=== PATIENT | female | born 1935 | race Caucasian/White ===

== ENCOUNTER 2018-11-08 06:47 | Emergency (ER) | payer OTHER, MEDICARE ==
[2018-11-08 07:01] VITALS: TEMP 98.3; BMI 26.3
[2018-11-08 09:12] LABS: INR 1.01 (0.83-1.09); PROTHROMBIN TIME (PATIENT) 11.9 SEC (9.7-13.0)
[2018-11-08 09:16] LABS: BASO % 1.6 % (0-2.0); EOS % 1.8 % (0-4.5); HEMATOCRIT 34.4 % (32.4-45.2); HEMOGLOBIN 11.7 GM/dL (10.7-15.3); LYMPH % 14.9 % (8-40); MCH 31.8 pg (25.7-33.7); MCHC 34.1 g/dl (32.0-36.0); MEAN CELL VOLUME 93.1 fl (80-96); MEAN PLT VOLUME 8.9 fl (7.5-11.1); MONO % 6.3 % (3.8-10.2); NEUT % 75.4 % (42.8-82.8); PLATELET COUNT 468 K/MM3 (134-434); RDW 15.5 % (11.6-15.6); WHITE BLOOD COUNT 10.4 K/mm3 (4.0-10.0)
[2018-11-08 09:30] LABS: ALBUMIN 3.6 g/dl (3.4-5.0); ALK PHOS 72 U/L (45-117); ANION GAP 4 MMOL/L (8-16); BILIRUBIN,TOTAL 0.4 mg/dL (0.2-1); BLOOD UREA NITROGEN 19.2 mg/dL (7-18); CALCIUM 10.2 mg/dL (8.5-10.1); CHLORIDE 109 mmol/L (98-107); CO2 27 mmol/L (21-32); CREATININE 0.6 mg/dL (0.55-1.3); GLUCOSE,RANDOM 100 mg/dL (74-106); POTASSIUM 4.1 mmol/L (3.5-5.1); SGOT/AST 12 U/L (15-37); SGPT/ALT 14 U/L (13-61); SODIUM 140 mmol/L (136-145); TOT PROT 6.8 g/dl (6.4-8.2)
--- NOTE | 2018-11-08 10:20 | EKG ---
Test Reason : Blood Pressure : / mmHG Vent. Rate : 100 BPM Atrial Rate : 100 BPM P-R Int : 148 ms QRS Dur : 086 ms QT Int : 346 ms P-R-T Axes : 038 -22 009 degrees QTc Int : 446 ms NORMAL SINUS RHYTHM MINIMAL VOLTAGE CRITERIA FOR LVH, MAY BE NORMAL VARIANT BORDERLINE ECG WHEN COMPARED WITH ECG OF 19-JUN-2016 10:40, NO SIGNIFICANT CHANGE WAS FOUND Confirmed by CLARK ROTH, MARCELLA ([id number]) on 11/08/2018 10:19:42 AM Referred By: Confirmed By:MARCELLA RODAS MD
--- NOTE | 2018-11-08 10:40 | PDOC ---
Documentation entered by Kristine Hernandez SCRIBE, acting as scribe for Beto Perez MD. Beto ePrez MD: This documentation has been prepared by the Mary mccarty Adrianna, SCRIBE, under my direction and personally reviewed by me in its entirety. I confirm that the documentation accurately reflects all work, treatment, procedures, and medical decision making performed by me. History of Present Illness - General Chief Complaint: Shortness of Breath Stated Complaint: SHORTNESS OF BREATH Time Seen by Provider: 11/08/18 07:52 - History of Present Illness Initial Comments: The patient is an 83 Y F, with a PMH of HTN, HLD, and thrombocytopenia, presents with back pain and SOB since last night. Patient reports an unwitnessed last night secondary to her knees feeling weak (patient ambulates with cane at baseline). She complains of right-sided low back pain and admits to hitting her back during the fall. Patient reports feeling SOB prior to falling asleep, which has not resolved. SOB is intermittent, and the patient was able to sleep last night. She reports bilateral ankle swelling, which is secondary to Anagrelide. Patient notes she is currently on day 3 of Augmentin for cellulitis of the LLE. Denies fever, chills, cough, chest pain, fatigue, nausea, vomit, diarrhea. Allergies: Nitrofurantoin, nitrofurantoin macrocrystalline Surgical History: Thyroidectomy, abdominal hernia Social: Drinks half a glass of wine a day. Denies tobacco use. PCP: Dr. Gregor Smith Oncologist: Dr. Meet Mcgill 11/08/18 08:55 Past History - Past Medical History Allergies/Adverse Reactions: Allergies Allergy/AdvReac Type Severity Reaction Status Date / Time nitrofurantoin Allergy Verified 10/04/14 07:35 [From Macrobid] nitrofurantoin Allergy Verified 10/04/14 07:35 macrocrystalline [From Macrobid] Home Medications: Ambulatory Orders Amlodipine Besylate [Norvasc] 5 mg PO DAILY 09/21/12 Cholecalciferol (Vitamin D3) [Vitamin D] 1,000 unit PO DAILY 09/21/12 Levothyroxine [Synthroid] 0.125 mcg PO DAILY 09/21/12 Ubidecarenone [Coq-10] 100 mg PO DAILY 09/21/12 Aspirin [ASA -] 81 mg PO DAILY 10/04/14 Hydroxyurea [Hydrea] 500 mg PO DAILY 10/04/14 Lisinopril [Prinivil -] 20 mg PO DAILY 10/04/14 Alendronate Sodium/Vitamin D3 [Fosamax Plus D 70 mg-5,600 Iu vIT d] 1 each PO Q7D MDD takes on Saturdays11/08/18 Anagrelide HCl [Agrylin -] 0.5 mg PO TID 11/08/18 Furosemide [Lasix] 20 mg PO PRN 11/08/18 Asthma: No Cancer: No Cardiac Disorders: No CVA: No COPD: No CHF: No Diabetes: No HTN: Yes Hypercholesterolemia: Yes Thyroid Disease: Yes Other medical history: thrombocytopenia - Surgical History Abdominal Surgery: Yes (abd hernia) - Immunization History Immunization Up to Date: No - Suicide/Smoking/Psychosocial Hx Smoking Status: No Smoking History: Never smoked Have you smoked in the past 12 months: No Number of Cigarettes Smoked Daily: 0 Information on smoking cessation initiated: No Hx Alcohol Use: No Drug/Substance Use Hx: No Substance Use Type: None Respiratory Specific PMHX - Complaint Specific PMHX Angina: No Bronchitis: Yes Pneumonia: Yes Pulmonary Embolus: No Review of Systems - Review of Systems Comments:: CONSTITUTIONAL: No fever, no chills, no fatigue EYES: No visual changes ENT: No ear pain, no sore throat CARDIOVASCULAR: No chest pain, no palpitations RESPIRATORY: +SOB. No cough. GI: No abdominal pain, no nausea, no vomiting, no constipation, no diarrhea GENITOURINARY: No dysuria, no frequency, no hematuria MUSKULOSKELETAL: +Right-sided low back pain. +Bilateral ankle edema (secondary to Anagrelide). +LLE cellulitis (currently on antibiotics). No joint pain, no myalgias SKIN: No rash NEURO: No headache 11/08/18 08:56 *Physical Exam - Vital Signs Last Vital Signs Temp Pulse Resp BP Pulse Ox 98.3 F 101 H 16 151/90 95 11/08/18 06:58 11/08/18 06:58 11/08/18 06:58 11/08/18 06:58 11/08/18 06:58 - Physical Exam Comments: 11/08/18 11:59 EXAMINATION CONSTITUTIONAL: Well-appearing; well-nourished; in no apparent distress HEAD: Normocephalic; atraumatic EYES: PERRL; EOM intact ENMT: External appears normal; normal oropharynx; heard of hearing NECK: Supple; non-tender; no cervical lymphadenopathy CARD: Normal S1, S2; no murmurs, rubs, or gallops RESP: Normal chest excursion with respiration; breath sounds clear and equal bilaterally; no wheezes, rhonchi, or rales; + right flank and mid thoracic musculoskeletal pain reproducible to palpation; ABD: Soft, non-distended; non-tender; no palpable organomegaly, no palpable hernias; + hematoma to the right flank overlying the iliac spine; PELVIS: stable EXT: Normal ROM in all four extremities; non-tender to palpation; + 2 pitting edema bilaterally; + 1 cmskin ulceration to the left pretibial area is noted with packing in place;distal pulses intact SKIN: Warm, dry, no rash NEURO: cranial nerves II through XII are grossly intact; motor is 5 of 54; gait -deferred. ED Treatment Course - LABORATORY CBC & Chemistry Diagram: 11/08/18 08:43 11/08/18 08:43 - ADDITIONAL ORDERS Additional order review: Laboratory Results 11/08/18 11/08/18 11/08/18 08:43 08:43 08:43 PT with INR 11.90 INR 1.01 Sodium 140 Potassium 4.1 Chloride 109 H Carbon Dioxide 27 Anion Gap 4 L BUN 19.2 H Creatinine 0.6 Est GFR (CKD-EPI)AfAm 96.33 Est GFR (CKD-EPI)NonAf 83.11 Random Glucose 100 Calcium 10.2 H Total Bilirubin 0.4 AST 12 L ALT 14 Alkaline Phosphatase 72 Creatine Kinase 75 Troponin I < 0.02 B-Natriuretic Peptide 310.3 Total Protein 6.8 Albumin 3.6 11/08/18 08:43 PT with INR INR Sodium Potassium Chloride Carbon Dioxide Anion Gap BUN Creatinine Est GFR (CKD-EPI)AfAm Est GFR (CKD-EPI)NonAf Random Glucose Calcium Total Bilirubin AST ALT Alkaline Phosphatase Creatine Kinase Cancelled Troponin I Cancelled B-Natriuretic Peptide Total Protein Albumin 11/08/18 08:43 RBC 3.70 MCV 93.1 D MCHC 34.1 RDW 15.5 D MPV 8.9 Neutrophils % 75.4 Lymphocytes % 14.9 Monocytes % 6.3 Eosinophils % 1.8 Basophils % 1.6 - RADIOLOGY Radiology Studies Ordered: EXAM#: TYPE/EXAM: RESULT: [id number] RAD/CHEST X-RAY PORTABLE* Chest: Shortness of breath Impression: No acute chest pathology. Reported By: Matt Zuniga MD 11/08/18 09:20 EXAM#: TYPE/EXAM: RESULT: [id number] US/DUPLEX VASCUL US-2LEGS HISTORY PROVIDED: Pain and swelling bilateral lower extremities. IMPRESSION: No evidence of deep venous thrombosis. Reported By: Herminio Chan MD 11/08/18 10:11 Radiograph Interpretation: EXAM#: TYPE/EXAM: RESULT: [id number] CT/CHEST CTA HISTORY PROVIDED: Rule out PE. IMPRESSION: 1. No evidence of pulmonary embolism. 2. Mild COPD, no acute pathology within the chest. Please see above discussion. Reported By: Herminio Chan MD 11/08/18 13:36 - Consult/PCP Time Called: 14:18 (paged) Case discussed with personal care physician: Gregor Campbell Medical Decision Making - Medical Decision Making 11/08/18 11:59 Patient is an 83-year-old female with history of hypertension, hyperlipidemia, thrombocytosis who presents with persistent shortness of breath for the past several hours, at rest and with minimal exertion, without associated chest pain/ cough/fever/chills/nausea/vomiting. Patient also endorses bilateral lower extremity edema of uncertain duration. In the ER, patient is awake and alert, well-nourished, with normal and stable vital signs. Oxygen saturation has been noted at 98-99% on room air. EKG was noted to mild tachycardia of 100 bpm with LVH but no evidence of acute ischemia or right sided heart strain. Chest x-ray revealed no evidence of acute pathology. BNP is within normal limit. Cardiac profile was unremarkable. Given patient's history of thrombocytosis, PE is suspected. Will obtain CTA of chest to rule out PE. Will reassess. 11/08/18 15:01 Patient CTA of chest reveals no evidence of acute PE. Atelectatic changes and noted on the left. Patient is asymptomatic and has been asymptomatic for several hours. I discussed the case with Dr. Campbell. Will obtain second set of cardiac enzymes and if negative, will discharge with outpatient follow- up. *DC/Admit/Observation/Transfer Diagnosis at time of Disposition: Shortness of breath - Discharge Dispostion Condition at time of disposition: Stable - Referrals Referrals: Gregor Campbell MD [Primary Care Provider] - - Patient Instructions Printed Discharge Instructions: DI for Shortness of Breath - Post Discharge Activity - Attestations Physician Attestion: 11/08/18 10:38 The documentation was prepared by the scribe under my direct supervision. I have reviewed the documentation which correctly represents the findings, medical decision-making and critical action taken by me.
[2018-11-08] MEDS ORDERED: SODIUM CHLORIDE 500 ML IV STA (11:04)
[2018-11-08 17:24] VITALS: BP 145/75; PULSE 82
== END 2018-11-08 17:24 | disposition home or self-care (01) ==
LOC: JER 06:47
PROC: 3E0337Z Introduction of Electrolytic and Water Balance Substance into Peripheral Vein, Percutaneous Approach (ICD-10-PCS; principal; 2018-11-08)
DX: R06.02 Shortness of breath (principal); I10 Essential (primary) hypertension; E78.5 Hyperlipidemia, unspecified
CPT/HCPCS: 36415; 71045-TC-FY; 71275-TC; 76604; 76705-TC; 80053; 82550; 83880; 84484; 85025; 85610; 93005; 93010; 93308; 93970-TC; 96360; 99284-25

== ENCOUNTER 2019-01-23 11:40 | Inpatient (IN) | payer OTHER, MEDICARE ==
--- NOTE | 2019-01-23 12:24 | PDOC ---
History of Present Illness - General Chief Complaint: Weakness Stated Complaint: WEAKNESS Time Seen by Provider: 01/23/19 11:59 History Source: Patient, Friend, Other (neighbor) Exam Limitations: No Limitations - History of Present Illness Initial Comments: 01/23/19 12:18 83yo F with PMH of HTN, Hypothyroidism, Thrombocytosis, LLE Cellulitis presenting to ED with complaints of intermittent SOB x3m. SOB is not worsened by exertion, and occurs at rest as well and resolves spontaneously. She is non compliant with Lasix which she takes for edema. Some lightheadedness. Denies chest pain, cough, recent illnesses, fevers, chills, weight fluctuations, syncope, dizziness, back pain, abdominal pain, n/v/d, dysuria, frequency, numbness/tinging, changes in vision. Neighbor states that she seems more forgetful than usual today. PMD: Commentucci Cards: Gregoria PMH: see hpi Meds: see med rec Allergies: nitrofurantoin Per chart review patient has had syncopal episodes in the past and refused Holter monitor Past History - Past Medical History Allergies/Adverse Reactions: Allergies Allergy/AdvReac Type Severity Reaction Status Date / Time nitrofurantoin Allergy Verified 01/23/19 12:00 [From Macrobid] nitrofurantoin Allergy Verified 01/23/19 12:00 macrocrystalline [From Macrobid] Penicillins Allergy Verified 01/23/19 12:00 Home Medications: Ambulatory Orders Levothyroxine [Synthroid] 50 mcg PO DAILY 09/21/12 Lisinopril [Prinivil -] 20 mg PO DAILY 10/04/14 Alendronate Sodium/Vitamin D3 [Fosamax Plus D 70 mg-5,600 Iu vIT d] 1 each PO Q7D MDD takes on Saturdays11/08/18 Furosemide [Lasix] 20 mg PO DAILY PRN 11/08/18 Cholecalciferol (Vitamin D3) [Vitamin D3 -] 1 tab PO DAILY 01/10/19 Metoprolol Succinate [Toprol Xl] 25 mg PO DAILY 01/10/19 ASA - 162 mg PO DAILY 01/17/19 Hydroxyurea 500 mg PO DAILY 01/17/19 Anemia: Yes (Throbocytopenia) Asthma: No Cancer: No Cardiac Disorders: No CVA: No COPD: No CHF: No Diabetes: No HTN: Yes Hypercholesterolemia: Yes Thyroid Disease: Yes (s/p right thyroid lobectomy) - Surgical History Abdominal Surgery: Yes (abd hernia) - Immunization History Immunization Up to Date: No - Psycho Social/Smoking Cessation Hx Smoking Status: No Smoking History: Never smoked Have you smoked in the past 12 months: No Number of Cigarettes Smoked Daily: 0 Information on smoking cessation initiated: No Hx Alcohol Use: No Drug/Substance Use Hx: No Substance Use Type: None Review of Systems - Review of Systems Constitutional: Yes: Weight Stable. No: Chills, Fever HEENTM: No: Symptoms Reported Respiratory: Yes: Shortness of Breath. No: Cough, Wheezing Cardiac (ROS): No: Chest Pain, Palpitations, Syncope ABD/GI: No: Symptoms Reported : No: Symptoms Reported Musculoskeletal: No: Symptoms Reported Integumentary: No: Symptoms Reported Neurological: No: Symptoms reported *Physical Exam - Vital Signs Last Vital Signs Temp Pulse Resp BP Pulse Ox 97.9 F 63 16 179/89 H 100 01/23/19 11:40 01/23/19 11:40 01/23/19 11:40 01/23/19 11:40 01/23/19 11:40 - Physical Exam General Appearance: Yes: Nourished, Appropriately Dressed. No: Apparent Distress HEENT: positive: EOMI, ALEXI, Normal ENT Inspection Neck: positive: Trachea midline, Supple. negative: Lymphadenopathy (R), Lymphadenopathy (L), Thyromegaly Respiratory/Chest: positive: Lungs Clear, Normal Breath Sounds. negative: Crackles, Rales, Rhonchi, Stridor, Wheezing Cardiovascular: positive: Regular Rhythm, Regular Rate, S1, S2. negative: Edema , JVD, Murmur Gastrointestinal/Abdominal: positive: Normal Bowel Sounds, Soft. negative: Tender, Rebound, Tenderness, Mass Extremity: positive: Normal Capillary Refill, Pedal Edema, Erythema (LLE warmth with superficial ulceration to L shah, covered by wrap. no fluctuance). 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 AOx4 ddx includes but not limited to acs, pna, pe, ptx, pericarditis, chf, metabolic abnormality, malignancy will obtain basic labs inclding trop, bnp, tsh, ekg, cxr, ua/ucx ekg: nsr at 69bpm, no kayla or depessions qrs 94, qtc 437, pr 170. labs wnl. trop negative. bnp and tsh pending. wbc 10.5. ua pending. if infected, will place patient on abx. cxr: widened mediasinum, poor inspiratory effort. no infiltrates or consolidations. low suspicion for dissection (patient does not have chest pain, pulses symmetrical). per cardiology patient has had syncopa episodes in the past and refused holter. tele/obs accepted by Dr. Campbell and Dr. Kinney Discharge - Discharge Information Problems reviewed: Yes Clinical Impression/Diagnosis: Shortness of breath Condition: Stable - Admission Yes - Follow up/Referral - Patient Discharge Instructions - Post Discharge Activity
[2019-01-23 13:01] LABS: BASO % 1.5 % (0-2.0); EOS % 4.6 % (0-4.5); HEMATOCRIT 33.6 % (32.4-45.2); HEMOGLOBIN 11.2 GM/dL (10.7-15.3); LYMPH % 11.4 % (8-40); MCH 28.5 pg (25.7-33.7); MCHC 33.5 g/dl (32.0-36.0); MONO % 8.6 % (3.8-10.2); NEUT % 73.9 % (42.8-82.8); PLATELET COUNT 806 K/MM3 (134-434); RBC 3.95 M/mm3 (3.60-5.2); RDW 17.3 % (11.6-15.6); WHITE BLOOD COUNT 10.5 K/mm3 (4.0-10.0)
--- NOTE | 2019-01-23 13:10 | CON.CARD ---
Consult Consult Specialty:: Cardiology Referred by:: Dr. Campbell Reason for Consultation:: Fatigue and SOMMER - History of Present Illness Chief Complaint: fatigue, SOMMER History of Present Illness: 83 F with HTN, diastolic dysfx, ET with recent episodes of syncope. Work up including echo and carotid US were unremarkable for age; she had declined holter. She had also recently developed LE edema thought to be due to Amlodipine side effect. ROS: several weeks of increased dyspnea. Denies fever or chills. No chest pain. No palps. Mild b/l LE edema; fell and scraped her left leg several weeks ago and is going to wound center. BP is mildly elevated in ER. Reports no change in medications. - History Source History Provided By: Patient Limitations to Obtaining History: No Limitations - Past Medical History BETTING AGENCY MANAGER: No: Alzheimer's, CVA, Dementia, Migraine, Multiple Sclerosis, Peripheral Neuropathy, Parkinson's, Seizure, Syncope, TIA, Vertigo, Other Cardio/Vascular: Yes: CHF (chronic diastolic CHF), HTN Pulmonary: No: Asthma, Bronchitis, Cancer, COPD, O2 Dependent, Pneumonia, Previously Intubated, Pulmonary Embolus, Pulmonary Fibrosis, Sleep Apnea, Other Gastrointestinal: No: Ascites, Cancer, Constipation, Crohn's Disease, Diverticulitis, Diverticulosis, Esophageal Varices, Gastritis, GERD, GI Bleed, Hemorrhoids, Hiatal Hernia, Inflamatory Bowel Disease, Irritable Bowel Disease, Pancreatitis, Peptic Ulcer Disease, Ulcerative Colitis, Other Hepatobiliary: No: Cirrhosis, Cholelithiasis, Cholecystitis, Choledocholithiasis , Hepatitis A, Hepatitis B, Hepatitis C, Other Renal/: No: Renal Failure, Renal Inusuff, BPH, Cancer, Hematuria, Hemodialysis , Neurogenic Bladder, Renal Calculi, UTI, Other Reproductive: No: Ectopic , Endometriosis, Fibroids, PID, Polycystic Ovary Syndrome, Postmenopausal, Other Heme/Onc: Yes: Myeloproliferative Synd Infectious Disease: No: AIDS, C-Diff, Herpes Zoster, HIV, MRSA, STD's, Tuberculosis, VREF, Other Psych: No: Addictions, Anxiety, Bipolar, Depression, Panic, Psychosis, Schizophrenia, Other Musculoskeletal: Yes: Osteoarthritis Rheumatology: No: Fibromyalgia, Gout, Lupus, Rheumatoid Arthritis, Sarcoidosis, Vasculitis, Other Endocrine: Yes: Hypothyroidism - Past Surgical History Past Surgical History: No: None, AAA Repair, AICD, Amputation, Appendectomy, Arthrosocopy, AV Fistula/Graft, Bariatric Surgery, Breast Biopsy, Bypass, CABG, Carotid Endarterectomy, Cataract Removal, Cholecystectomy, Colectomy, Colonoscopy, Colostomy, Craniotomy, , Cystectomy, Hernia Repair, Hysterectomy, Ileal Conduit, Ileosotomy, Joint Replacement, Kidney Transplant, Laminectomy, Liver Transplant, Mastectomy, Nephrectomy, Oopherectomy, Orchiectomy, Permanent Pacemaker, Prostatectomy, Splenectomy, Stent, Thoracotomy , TURP, Tonsillectomy, Tubal Ligation, Upper Endoscopy, Valve Replacement, Vasectomy, Vein Stripping/Ligation - Alcohol/Substance Use Hx Alcohol Use: No History of Substance Use: reports: None - Smoking History Smoking history: Never smoked Have you smoked in the past 12 months: No Aproximately how many cigarettes per day: 0 - Social History Usual Living Arrangement: With Spouse History of Recent Travel: No Home Medications - Allergies Allergies/Adverse Reactions: Allergies Allergy/AdvReac Type Severity Reaction Status Date / Time nitrofurantoin Allergy Verified 01/23/19 12:00 [From Macrobid] nitrofurantoin Allergy Verified 01/23/19 12:00 macrocrystalline [From Macrobid] Penicillins Allergy Verified 01/23/19 12:00 - Home Medications Home Medications: Ambulatory Orders Levothyroxine [Synthroid] 50 mcg PO DAILY 09/21/12 Lisinopril [Prinivil -] 20 mg PO DAILY 10/04/14 Alendronate Sodium/Vitamin D3 [Fosamax Plus D 70 mg-5,600 Iu vIT d] 1 each PO Q7D MDD takes on Saturdays11/08/18 Furosemide [Lasix] 20 mg PO DAILY PRN 11/08/18 Cholecalciferol (Vitamin D3) [Vitamin D3 -] 1 tab PO DAILY 01/10/19 Metoprolol Succinate [Toprol Xl] 25 mg PO DAILY 01/10/19 ASA - 162 mg PO DAILY 01/17/19 Hydroxyurea 500 mg PO DAILY 01/17/19 Family Medical History Family History: Unremarkable Review of Systems - Review of Systems Constitutional: reports: Weakness Cardiovascular: reports: No Symptoms Respiratory: reports: SOB, SOB on Exertion Gastrointestinal: denies: No Symptoms, Abdominal Pain, Bloating, Constipation, Diarrhea, Dysphagia, Indigestion, Melena, Nausea, Rectal Bleeding, Vomiting, Vomiting Blood, Other Genitourinary: denies: No Symptoms, Burning, Discharge, Dysuria, Flank Pain, Frequency, Hematuria, Incontinence, Lesions, Menses, Pain, Testicular Mass, Testicular Pain, Testicular Swelling, Urgency, Vaginal Bleeding, Other Breasts: denies: No Symptoms Reported, See HPI, Breast Implants, Discharge from Nipple, Lumps, Pain, Skin Changes, Other Musculoskeletal: denies: No Symptoms, Back Pain, Crepitus, Decreased ROM, Extremity Pain, Joint Pain, Joint Swelling, Muscle Pain, Muscle Cramps, Muscle Weakness, Other Integumentary: denies: No Symptoms, Blister, Bruising, Change in Color, Eczema, Erythema, Incision, Lesions, Lump, Pallor, Pruritis, Rash, Wound, Other Neurological: denies: No Symptoms, Change in LOC, Change in Speech, Confusion, Dizziness, Headache, Incoordination, Numbness, Parasthesia, Pre-Existing Deficit , Seizure, Syncope, Tremors, Unsteady Gait, Weakness, Other Endocrine: denies: No Symptoms, Excessive Sweating, Flushing, Increased Hunger, Increased Thirst, Intolerance to Cold, Intolerance to Heat, Unexplained Weight Gain, Unexplained Weight Loss, Other Hematology/Lymphatic: denies: No Symptoms, Easily Bruised, Excessive Bleeding, Swollen Glands, Other Psychiatric: denies: No Symptoms, Altered Sleep Pattern, Anxiety, Depression, Hallucinations, Panic, Paranoia, Suicidal, Other - Risk Factors Known Risk Factors: Yes: Hypertension Vital Signs: Vital Signs Temperature 97.9 F 01/23/19 11:40 Pulse Rate 63 01/23/19 11:40 Respiratory Rate 16 01/23/19 11:40 Blood Pressure 179/89 H 01/23/19 11:40 O2 Sat by Pulse Oximetry (%) 100 01/23/19 11:40 Constitutional: Yes: No Distress, Calm Eyes: Yes: Conjunctiva Clear, EOM Intact HENT: Yes: Atraumatic, Normocephalic Neck: Yes: Supple, Trachea Midline Respiratory: Yes: Other (rales 1/3 left, clears with coughing.) Gastrointestinal: Yes: Soft Cardiovascular: Yes: Regular Rate and Rhythm JVD: No Carotid Bruit: No Heart Sounds: Yes: S1, S2 (RRR, No M/R/G) Edema: Yes Edema: LLE: 1+, RLE: 1+ Neurological: Yes: Alert, Oriented - Other Data Labs, Other Data: CBC, BMP 01/23/19 12:50 Laboratory Tests 01/23/19 01/23/19 01/23/19 12:50 12:50 12:50 WBC 10.5 H Hgb 11.2 Hct 33.6 Plt Count 806 H INR Sodium Pending Potassium Pending BUN Pending Creatinine Pending Alkaline Phosphatase Pending Troponin I Pending Albumin Pending 01/23/19 12:50 WBC Hgb Hct Plt Count INR 1.06 Sodium Potassium BUN Creatinine Alkaline Phosphatase Troponin I Albumin Sinus Rhythm, Normal Rate (69), Normal Intervals (qtc 437, irbbb, LVH), No acute ischemic changes Echo: Report Reviewed (Recent office echo: normal LVEF, E:A reversal c/w diastolic dysfx; no sig valve disease) Ejection Fraction %: LVEF > or = 40 % Imaging - Results Chest X-ray: Image Reviewed (Reviewed with radiology; no infiltrate or effusion) EKG: Pending Assessment/Plan IMP: 1. Dyspnea of unclear etiology (Mild decomp. chronic diastolic CHF vs. COPD vs. mild bronchospasm secondary to Metoprolol vs depression/anxiety) 2. Chronic diastolic dysfx 3. Chronic HTN 4. Essential thrombocytosis 5. Hypothyroidism 6. Recent syncopal episodes 7. 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 Suspected depression. REC: 1. Serial cardiac enzymes, BNP. 2. Recent echo done, can repeat to see if any change particularly in RVSP/PA pressure. Low suspicion for pulmonary embolism at this point. 3. Nuclear stress test prior to discharge 4. Recent CTA (October)- no PE, "mild COPD" noted, consider inhaler/pulm eval. Will d/c Toprol (?causing SOB?) give trial of Bystolic (B1 selective). 5. BP is mildly elevated in ER; may be due to exacerbation of her chronic anxiety. Will follow trend and adjust meds for goal BP 150/90 6. As she had refused holter after recent syncopal episodes, recommend tele x 24 -48 hours. 7. Rx depression as per PMD.
[2019-01-23 13:14] LABS: INR 1.06 (0.83-1.09); PROTHROMBIN TIME (PATIENT) 12.5 SEC (9.7-13.0)
[2019-01-23 13:36] LABS: ALBUMIN 3.9 g/dl (3.4-5.0); BILIRUBIN,TOTAL 0.5 mg/dL (0.2-1); BLOOD UREA NITROGEN 16.5 mg/dL (7-18); CREATININE 0.6 mg/dL (0.55-1.3)
--- NOTE | 2019-01-23 14:18 | PDOC ---
Attending Attestation - Resident Resident Name: Virginia Nogueira - ED Attending Attestation I have performed the following: I have examined & evaluated the patient, The case was reviewed & discussed with the resident, I agree w/resident's findings & plan - HPI HPI: 01/23/19 14:13 83y/o h/o dCHF, HTN, essential thrombocytosis p/w episodes of sob, light- headedness/syncope. - Physicial Exam PE: 01/23/19 14:15 HD stable here, hypertensive at triage nad, well appearing s1s2, rr mild edema b/l neuro nonfocal - Medical Decision Making 01/23/19 14:17 83y/o F known HTN, diastolic dysfunction with sob and progressive weakness/near syncope. no fever/dehydration. labs, ua ekg, cxr seen by Dr. Kinney in ED will admit to Obs for cardiac eval/monitoring Heart Score/ECG Review #1 ECG reviewed & interpreted by me at: 13:33 General ECG Interpretation: Sinus Rhythm, Normal Rate (69), Normal Intervals ( qtc 437, irbbb, LVH), No acute ischemic changes
[2019-01-23 14:30] LABS: N-TERMINAL BNP 2420.1 pg/ml (5-450)
[2019-01-23] MEDS ORDERED: FUROSEMIDE 40 MG/4 ML INJECTABLE VIAL IVPUSH ONE (14:36)
[2019-01-23 15:12] LABS: URINE APPEARANCE CLEAR; URINE COLOR YELLOW
[2019-01-23 15:13] LABS: URINE BILIRUBIN NEGATIVE (NEGATIVE); URINE GLUCOSE (UA) NEGATIVE (NEGATIVE)
[2019-01-23 15:14] LABS: URINE KETONE TRACE (NEGATIVE)
[2019-01-23 15:15] LABS: PH,URINE 7.5 (5.0-8.0); URINE LEUK ESTERASE NEGATIVE (NEGATIVE); URINE NITRITE NEGATIVE (NEGATIVE); URINE PROTEIN TRACE (NEGATIVE); URINE UROBILINOGEN 0.2 mg/dL (0.2-1.0)
--- NOTE | 2019-01-23 15:32 | ECHO ---
Name: EGIDI, ADA Exam:Adult Echocardiogram Study Date: 01/23/2019 02:39 PM Age: 83 yrs Reason For Study: dyspnea Height: 58 in Weight: 120 lb BSA: 1.5 m2 MMode/2D Measurements & Calculations IVSd: 1.1 cm Ao root diam: 2.8 cm LVIDd: 3.5 cm LA dimension: 2.9 cm LVIDs: 2.6 cm LVPWd: 1.2 cm LVPWs: 1.5 cm EDV(Teich): 49.9 ml ESV(Teich): 23.9 ml LVOT diam: 1.9 cm LAV (MOD-bp): 62.1 ml RV S Aguilar: 12.2 cm/sec Doppler Measurements & Calculations MV E max aguilar: 65.5 cm/sec Ao V2 max: 134.5 cm/sec MV A max aguilar: 96.0 cm/sec Ao max P.3 mmHg MV E/A: 0.68 Ao V2 mean: 87.4 cm/sec MV dec time: 0.19 sec Ao mean P.6 mmHg Ao V2 VTI: 30.1 cm TR max aguilar: 283.8 cm/sec PA V2 max: 112.0 cm/sec TR max P.3 mmHg PA max P.0 mmHg PI end-d aguilar: 122.8 cm/sec Med Peak E' Aguilar: 5.5 cm/sec Med E/e': 11.8 Lat Peak E' Aguilar: 7.4 cm/sec Lat E/e': 8.9 Procedure A complete two-dimensional transthoracic echocardiogram was performed (2D, M-mode, Doppler and color flow Doppler). Left Ventricle The left ventricular size, thickness and function are normal. Ejection Fraction = 60%. E/A reversal c onsistent with but not diagnostic of poor LV compliance. The left ventricular wall motion is normal. Right Ventricle The right ventricle is normal in size and function. Atria Normal left and right atrial size and function. Mitral Valve The mitral valve is normal in structure and function. There is mild mitral regurgitation. Tricuspid Valve The tricuspid valve is normal in structure and function. There is trace tricuspid regurgitation. Righ t ventricular systolic pressure is elevated at 41 mmhg. Assuming the RA pressure is 5 mmHg. Aortic Valve There is mild to moderate aortic valve thickening. Pulmonic Valve The pulmonic valve is not well visualized. Trace pulmonic valvular regurgitation. Great Vessels The aortic root is normal size. Pericardium/Pleura There is no pericardial effusion. There is no pleural effusion. Interpretation Summary The left ventricular size, thickness and function are normal Ejection Fraction = 60%. The right ventricle is normal in size and function. There is mild mitral regurgitation. There is trace tricuspid regurgitation. Right ventricular systolic pressure is elevated at 41 mmhg. There is mild to moderate aortic valve thickening. Trace pulmonic valvular regurgitation. MD Fernando Maldonado 01/23/2019 03:32 PM
--- NOTE | 2019-01-23 15:34 | EKG ---
Test Reason : Blood Pressure : / mmHG Vent. Rate : 069 BPM Atrial Rate : 069 BPM P-R Int : 170 ms QRS Dur : 094 ms QT Int : 408 ms P-R-T Axes : 033 -11 024 degrees QTc Int : 437 ms NORMAL SINUS RHYTHM INCOMPLETE RIGHT BUNDLE BRANCH BLOCK MINIMAL VOLTAGE CRITERIA FOR LVH, MAY BE NORMAL VARIANT BORDERLINE ECG WHEN COMPARED WITH ECG OF 08-NOV-2018 07:01, NO SIGNIFICANT CHANGE WAS FOUND Confirmed by Fernando Maldonado MD ([id number]) on 01/23/2019 3:34:18 PM Referred By: Confirmed By:Fernando Maldonado MD
[2019-01-23] MEDS ORDERED: HYDROXYUREA 500 MG CAPSULE PO SCH (16:15)
--- NOTE | 2019-01-23 16:17 | HP ---
Admitting History and Physical - Primary Care Physician PCP: Gregor Campbell - Admission Chief Complaint: SOB History of Present Illness: 83yo F with PMH of hypertensive heart Dz , Hypothyroidism, hyperparathyroidism, essential Thrombocytosis, chronic mobility issues, presenting to ED with complaints of intermittent SOB which has slowly worsened over past few weeks ( inspite of being on diuretics; RHIANNON-I). SOB is not worsened by exertion, and occurs at rest as well and resolves spontaneously. She is non compliant with Lasix which she takes for edema. Denies chest pain, cough, recent illnesses, fevers, chills, weight fluctuations, loss of appetite, dizziness, back pain, abdominal pain, n/v/d, dysuria, changes in vision. She has been going to wound care Ctr for a traumatically induced sore of the LLE that is healing slowly. She has been experiencing greater weakness and difficulty tending to her daily living activities and has been relying on others more and more. History Source: Patient, Family Member Limitations to Obtaining History: No Limitations - Past Medical History [employer]: No: Alzheimer's, CVA, Dementia, Migraine, Multiple Sclerosis, Peripheral Neuropathy, Parkinson's, Seizure, Syncope, TIA, Vertigo, Other Cardiovascular: Yes: CHF (chronic diastolic CHF), HTN Pulmonary: No: Asthma, Bronchitis, Cancer, COPD, O2 Dependent, Pneumonia, Previously Intubated, Pulmonary Embolus, Pulmonary Fibrosis, Sleep Apnea, Other Gastrointestinal: No: Ascites, Cancer, Constipation, Crohn's Disease, Diverticulitis, Diverticulosis, Esophageal Varices, Gastritis, GERD, GI Bleed, Hemorrhoids, Hiatal Hernia, Inflamatory Bowel Disease, Irritable Bowel Disease, Pancreatitis, Peptic Ulcer Disease, Ulcerative Colitis, Other Hepatobiliary: No: Cirrhosis, Cholelithiasis, Cholecystitis, Choledocholithiasis , Hepatitis A, Hepatitis B, Hepatitis C, Other Renal/: No: Renal Failure, Renal Inusuff, BPH, Cancer, Hematuria, Hemodialysis , Neurogenic Bladder, Renal Calculi, UTI, Other Heme/Onc: Yes: Myeloproliferative Synd Infectious Disease: No: AIDS, C-Diff, Herpes Zoster, HIV, MRSA, STD's, Tuberculosis, VREF, Other Psych: No: Addictions, Anxiety, Bipolar, Depression, Panic, Psychosis, Schizophrenia, Other Musculoskeletal: Yes: Osteoarthritis Rheumatology: No: Fibromyalgia, Gout, Lupus, Rheumatoid Arthritis, Sarcoidosis, Vasculitis, Other Endocrine: Yes: Hypothyroidism - Past Surgical History Past Surgical History: Yes: Hysterectomy Additional Past Surgical History: partial thyroidectomy - Smoking History Smoking history: Former smoker Have you smoked in the past 12 months: No Aproximately how many cigarettes per day: 0 - Alcohol/Substance Use Hx Alcohol Use: No History of Substance Use: reports: None - Social History Usual Living Arrangement: Yes: With Spouse ADL: Family Assistance History of Recent Travel: No Home Medications - Allergies Allergies/Adverse Reactions: Allergies Allergy/AdvReac Type Severity Reaction Status Date / Time nitrofurantoin Allergy Verified 01/23/19 12:00 [From Macrobid] nitrofurantoin Allergy Verified 01/23/19 12:00 macrocrystalline [From Macrobid] Penicillins Allergy Verified 01/23/19 12:00 - Home Medications Home Medications: Ambulatory Orders Levothyroxine [Synthroid] 50 mcg PO DAILY 09/21/12 Lisinopril [Prinivil -] 20 mg PO DAILY 10/04/14 Alendronate Sodium/Vitamin D3 [Fosamax Plus D 70 mg-5,600 Iu vIT d] 1 each PO Q7D MDD takes on Saturdays11/08/18 Furosemide [Lasix] 20 mg PO DAILY PRN 11/08/18 Cholecalciferol (Vitamin D3) [Vitamin D3 -] 1 tab PO DAILY 01/10/19 Metoprolol Succinate [Toprol Xl] 25 mg PO DAILY 01/10/19 ASA - 162 mg PO DAILY 01/17/19 Hydroxyurea 500 mg PO DAILY 01/17/19 Family Medical History Family History: Unremarkable Review of Systems - Review of Systems Constitutional: reports: Weakness Eyes: reports: No Symptoms HENT: reports: No Symptoms Neck: reports: No Symptoms Cardiovascular: reports: Shortness of Breath Respiratory: reports: SOB Gastrointestinal: reports: No Symptoms Genitourinary: reports: Frequency Breasts: reports: No Symptoms Reported Musculoskeletal: reports: Muscle Weakness Integumentary: reports: Wound (LLE) Neurological: reports: Incoordination, Unsteady Gait Endocrine: reports: No Symptoms Hematology/Lymphatic: reports: No Symptoms Psychiatric: reports: Anxiety Physical Examination Vital Signs: Vital Signs Temperature 97.9 F 01/23/19 11:40 Pulse Rate 63 01/23/19 11:40 Respiratory Rate 16 01/23/19 11:40 Blood Pressure 179/89 H 01/23/19 11:40 O2 Sat by Pulse Oximetry (%) 98 01/23/19 11:59 Findings/Remarks: skin--< 1 cm shallow LLE sore in ha-lateral LLE head--NC eyes--midline oral--no mucosal lesions appreciated neck--no masses, nodes or goiter appreciated lungs--distant BS breasts--unremarkable heart--RR abd--soft, NT, ND, BS+, no masses; old vertical midline surg incision ext--degen changes; edema of the LE's (RLE mild; LLE moderate); dorsal pulses felt bilat; Bunion L>R; ROM w/o pain neuro--alert; coherent; speech fluent; memory lapses in short term domain; no gross focal deficits; questionable sensory loss of distal LE's. no clonus noted , no rigidity or tremors; no gross ataxia Labs: CBC, BMP 01/23/19 12:50 01/23/19 12:50 CBCD WBC 10.5 K/mm3 (4.0-10.0) H 01/23/19 12:50 RBC 3.95 M/mm3 (3.60-5.2) 01/23/19 12:50 Hgb 11.2 GM/dL (10.7-15.3) 01/23/19 12:50 Hct 33.6 % (32.4-45.2) 01/23/19 12:50 MCV 85.0 fl (80-96) 01/23/19 12:50 MCHC 33.5 g/dl (32.0-36.0) 01/23/19 12:50 RDW 17.3 % (11.6-15.6) H 01/23/19 12:50 Plt Count 806 K/MM3 (134-434) H 01/23/19 12:50 MPV 7.0 fl (7.5-11.1) L D 01/23/19 12:50 CMP Sodium 139 mmol/L (136-145) 01/23/19 12:50 Potassium 4.0 mmol/L (3.5-5.1) 01/23/19 12:50 Chloride 105 mmol/L (98-107) 01/23/19 12:50 Carbon Dioxide 30 mmol/L (21-32) 01/23/19 12:50 Anion Gap 4 MMOL/L (8-16) L 01/23/19 12:50 BUN 16.5 mg/dL (7-18) 01/23/19 12:50 Creatinine 0.6 mg/dL (0.55-1.3) 01/23/19 12:50 Random Glucose 85 mg/dL (74-106) 01/23/19 12:50 Calcium 10.0 mg/dL (8.5-10.1) 01/23/19 12:50 Total Bilirubin 0.5 mg/dL (0.2-1) 01/23/19 12:50 AST 13 U/L (15-37) L 01/23/19 12:50 ALT 16 U/L (13-61) 01/23/19 12:50 Alkaline Phosphatase 75 U/L (45-117) 01/23/19 12:50 Total Protein 7.0 g/dl (6.4-8.2) 01/23/19 12:50 Albumin 3.9 g/dl (3.4-5.0) 01/23/19 12:50 CARDIAC ENZYMES Troponin I < 0.02 ng/ml (0.00-0.05) 01/23/19 12:50 Urine Test Results Urine Color Yellow 01/23/19 13:24 Urine Appearance Clear 01/23/19 13:24 Urine pH 7.5 (5.0-8.0) D 01/23/19 13:24 Ur Specific [place] 1.014 (1.010-1.035) 01/23/19 13:24 Urine Protein Trace (NEGATIVE) 01/23/19 13:24 Urine Glucose (UA) Negative (NEGATIVE) 01/23/19 13:24 Urine Ketones Trace (NEGATIVE) H 01/23/19 13:24 Urine Blood Negative (NEGATIVE) 01/23/19 13:24 Urine Nitrite Negative (NEGATIVE) 01/23/19 13:24 Urine Bilirubin Negative (NEGATIVE) 01/23/19 13:24 Ur Leukocyte Esterase Negative (NEGATIVE) 01/23/19 13:24 Imaging - Results Chest X-ray: Report Reviewed EKG: Report Reviewed Other: Report Reviewed (echo) Problem List - Problems (1) Shortness of breath Assessment/Plan: chronic; intermittent but more pronounced. Cause unclear, doubt Pulmonary as oxygenation is NL and CXR clear. BNP >2K indicative of cardiac issue. PLAN: cont BB; RHIANNON; IV lasix; may need stress testing Code(s): R06.02 - SHORTNESS OF BREATH (2) Edema Assessment/Plan: of the LE's; could be 2nd volume overload; 2nd diast dysf. PLAN: IV LaSIX Code(s): R60.9 - EDEMA, UNSPECIFIED Qualifiers: Edema type: localized Qualified Code(s): R60.0 - Localized edema (3) Diastolic CHF with preserved left ventricular function, NYHA class 2 Assessment/Plan: as shown by poor diastolic compliance of ventricle. Plan; as per cardio Code(s): I50.30 - UNSPECIFIED DIASTOLIC (CONGESTIVE) HEART FAILURE (4) Thrombocythemia, essential Assessment/Plan: chronic; responded to Agrylin but likely intolerant to it's side effects (at 6mg BID); previously controlled with Hydrea but was taken off it due to high dose requirement. PLAN: will retry Hydrea at higher dose as low dose ineffective Code(s): D47.3 - ESSENTIAL (HEMORRHAGIC) THROMBOCYTHEMIA (5) Hypothyroidism (acquired) Assessment/Plan: on hormonal replacement; TSH okay today; cont same Code(s): E03.9 - HYPOTHYROIDISM, UNSPECIFIED (6) Hyperparathyroidism Assessment/Plan: primary (high PTH ); not deemed to need surg intervention; calcium mildly high. Effeectiveness of biphosph to lower the calcium have been questionable; does not wish to take Prolia injections. Code(s): E21.3 - HYPERPARATHYROIDISM, UNSPECIFIED (7) Osteoporosis Assessment/Plan: not new; had not improved with shelter use of Ibandronate; does not wish IV Prolia; now on Alendronate Code(s): M81.0 - AGE-RELATED OSTEOPOROSIS W/O CURRENT PATHOLOGICAL FRACTURE Qualifiers: Osteoporosis type: unspecified (8) Ulcer of left lower leg Assessment/Plan: slowly healing; being followed by wound care ctr. Code(s): L97.929 - NON-PRS CHRONIC ULC UNSP PRT OF L LOW LEG W UNSP SEVERITY Qualifiers: Non-pressure ulcer stage: limited to breakdown of skin Qualified Code(s): L97.921 - Non-pressure chronic ulcer of unspecified part of left lower leg limited to breakdown of skin (9) Hypertension Assessment/Plan: lonstanding; had needed dual agents for control. Code(s): I10 - ESSENTIAL (PRIMARY) HYPERTENSION Qualifiers: Hypertension type: unspecified Qualified Code(s): I10 - Essential (primary ) hypertension (10) Cognitive dysfunction associated with depression Assessment/Plan: displays signs of depression as she has started losing her independence; however , may have early dementia which by itself could promote depression. PLAN: will consider use of antidepressant and possible memory enhancing agent Code(s): F06.8 - OTH MENTAL DISORDERS DUE TO KNOWN PHYSIOLOGICAL CONDITION; F32.9 - MAJOR DEPRESSIVE DISORDER, SINGLE EPISODE, UNSPECIFIED (11) Gait difficulty Assessment/Plan: not new, but progressing. Cause unclear; displayed pelvic girdle weakness, as she cannot push off seated position on her own. This is longstanding but has gotten worse over the years. Not remedied by PT. Once she is up then she is able to ambulate w/ walker Code(s): R26.9 - UNSPECIFIED ABNORMALITIES OF GAIT AND MOBILITY Assessment/Plan 83 YO F with failure to thrive based on progressive weakness/dyspnea; Mgmt as above ~~~~~~~~~~~~~~~~~~~~~~~ Dr Campbell
[2019-01-23 18:35] VITALS: BMI 26.1
[2019-01-23] MEDS: HYDROXYUREA 500 MG CAPSULE PO SCH (21:26)
[2019-01-23] MEDS: MUPIROCIN CA 2% TOPICAL CREAM 15 GM TUBE TP SCH (21:35)
[2019-01-23] MEDS ORDERED: PT OWN MED DRAWER 7, Y5N ONE (21:40)
[2019-01-24] MEDS: LEVOTHYROXINE NA 100 MCG TABLET (FP) PO SCH (05:59)
[2019-01-24 07:06] LABS: ANION GAP 8 MMOL/L (8-16); BLOOD UREA NITROGEN 17.9 mg/dL (7-18); CALCIUM 9.5 mg/dL (8.5-10.1); CHLORIDE 104 mmol/L (98-107); CO2 28 mmol/L (21-32); CREATININE 0.6 mg/dL (0.55-1.3); GLUCOSE,RANDOM 81 mg/dL (74-106); MAGNESIUM 2.4 mg/dL (1.8-2.4); POTASSIUM 3.6 mmol/L (3.5-5.1); SODIUM 140 mmol/L (136-145)
[2019-01-24] MEDS ORDERED: LISINOPRIL 10 MG TABLET (FP) PO SCH (10:00)
[2019-01-24] MEDS ORDERED: FUROSEMIDE 40 MG TABLET (FP) PO SCH (10:00)
[2019-01-24] MEDS ORDERED: FUROSEMIDE 40 MG/4 ML INJECTABLE VIAL IVPUSH SCH (10:00)
--- NOTE | 2019-01-24 10:49 | PN ---
Progress Note (short form) - Note Progress Note: s: no chest pain, palps, dizziness, dyspnea Current Medications Aspirin (Ecotrin -) 81 mg PO DAILY [facility] Enoxaparin Sodium (Lovenox -) 40 mg SQ DAILY [facility] Furosemide (Lasix Injection -) 40 mg IVPUSH DAILY [facility] Hydroxyurea (Hydrea -) 1,000 mg PO BID [facility] Last Admin: 01/23/19 21:26 Dose: Not Given Levothyroxine Sodium (Synthroid -) 100 mcg PO DAILY@0700 [facility] Last Admin: 01/24/19 05:59 Dose: 100 mcg Lisinopril (Prinivil) 10 mg PO DAILY [facility] Mupirocin (Bactroban 2% Cream -) 1 applic TP BID [facility] Last Admin: 01/23/19 21:35 Dose: 1 applic Nebivolol (Bystolic -) 5 mg PO DAILY [facility] Vital Signs Period Temp Pulse Resp BP Sys/Johnson Pulse Ox Last 24 Hr 97.9 F-98.4 F 63-88 16-18 136-179/70-89 96-100 Constitutional: Yes: No Distress, Calm Eyes: Yes: Conjunctiva Clear, EOM Intact HENT: Yes: Atraumatic, Normocephalic Neck: Yes: Supple, Trachea Midline Respiratory: Yes: Other (rales 1/3 left, clears with coughing.) Gastrointestinal: Yes: Soft Cardiovascular: Yes: Regular Rate and Rhythm JVD: No Carotid Bruit: No Heart Sounds: Yes: S1, S2 (RRR, No M/R/G) Edema: Yes Edema: LLE: 1+, RLE: 1+ Neurological: Yes: Alert, Oriented Sinus Rhythm, Normal Rate (69), Normal Intervals (qtc 437, irbbb, LVH), No acute ischemic changes Echo: Report Reviewed (Recent office echo: normal LVEF, E:A reversal c/w diastolic dysfx; no sig valve disease) Ejection Fraction %: LVEF > or = 40 % Imaging - Results Chest X-ray: Image Reviewed (Reviewed with radiology; no infiltrate or effusion) tele: sinus Assessment/Plan IMP: 1. Dyspnea of unclear etiology (Mild decomp. chronic diastolic CHF vs. COPD vs. mild bronchospasm secondary to Metoprolol vs depression/anxiety) 2. Chronic diastolic dysfx 3. Chronic HTN 4. Essential thrombocytosis 5. Hypothyroidism 6. Recent syncopal episodes 7. 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 Suspected depression. REC: 1. trop neg x 2, EKG no ischemic changes - unlikely ACS. BNP elevated, on IV lasix, likely transition to PO in 24-48 hours, breathing improved 2. Recent echo done, can repeat to see if any change particularly in RVSP/PA pressure. Low suspicion for pulmonary embolism at this point. - repeat echo pending 3. Nuclear stress ordered 4. Recent CTA (October)- no PE, "mild COPD" noted, consider inhaler/pulm eval. toprol dc'ed as might have been causing sob - now on trial of Bystolic (B1 selective). 5. BP is mildly elevated in ER; may be due to exacerbation of her chronic anxiety. Will follow trend and adjust meds for goal BP 150/90 6. As she had refused holter after recent syncopal episodes, recommend tele x 24 -48 hours - no events 7. Rx depression as per PMD.
[2019-01-24] MEDS: ENOXAPARIN NA (PORCINE) 40 MG/0.4 ML DISP.SYRIN SQ SCH (10:55)
[2019-01-24] MEDS: LISINOPRIL 10 MG TABLET (FP) PO SCH (10:55)
[2019-01-24] MEDS: ASPIRIN COATED 81 MG TABLET.EC PO SCH (10:55)
[2019-01-24] MEDS: NEBIVOLOL 5 MG TABLET (FP) PO SCH (10:55)
--- NOTE | 2019-01-24 12:36 | PN ---
Progress Note (short form) - Note Progress Note: Current Medications Aspirin (Ecotrin -) 81 mg PO DAILY [facility] Last Admin: 01/24/19 10:55 Dose: 81 mg Enoxaparin Sodium (Lovenox -) 40 mg SQ DAILY [facility] Last Admin: 01/24/19 10:55 Dose: 40 mg Furosemide (Lasix Injection -) 40 mg IVPUSH DAILY [facility] Last Admin: 01/24/19 10:55 Dose: 40 mg Hydroxyurea (Hydrea -) 1,000 mg PO BID [facility] Last Admin: 01/23/19 21:26 Dose: Not Given Levothyroxine Sodium (Synthroid -) 100 mcg PO DAILY@0700 [facility] Last Admin: 01/24/19 05:59 Dose: 100 mcg Lisinopril (Prinivil) 10 mg PO DAILY [facility] Last Admin: 01/24/19 10:55 Dose: 10 mg Mupirocin (Bactroban 2% Cream -) 1 applic TP BID [facility] Last Admin: 01/23/19 21:35 Dose: 1 applic Nebivolol (Bystolic -) 5 mg PO DAILY [facility] Last Admin: 01/24/19 10:55 Dose: 5 mg Laboratory Results - last 24 hr 01/23/19 01/23/19 01/23/19 12:50 12:50 12:50 WBC 10.5 H RBC 3.95 Hgb 11.2 Hct 33.6 MCV 85.0 MCH 28.5 MCHC 33.5 RDW 17.3 H Plt Count 806 H MPV 7.0 L D Absolute Neuts (auto) 7.8 Neutrophils % 73.9 Lymphocytes % 11.4 D Monocytes % 8.6 Eosinophils % 4.6 H D Basophils % 1.5 Nucleated RBC % 0 ESR PT with INR INR Sodium 139 Potassium 4.0 Chloride 105 Carbon Dioxide 30 Anion Gap 4 L BUN 16.5 Creatinine 0.6 Est GFR (CKD-EPI)AfAm 96.33 Est GFR (CKD-EPI)NonAf 83.11 Random Glucose 85 Calcium 10.0 Magnesium Total Bilirubin 0.5 AST 13 L ALT 16 Alkaline Phosphatase 75 Troponin I < 0.02 B-Natriuretic Peptide 2420.1 H Total Protein 7.0 Albumin 3.9 Vitamin B12 Serum Folate TSH 3.36 Urine Color Urine Appearance Urine pH Ur Specific [place] Urine Protein Urine Glucose (UA) Urine Ketones Urine Blood Urine Nitrite Urine Bilirubin Urine Urobilinogen Ur Leukocyte Esterase Blood Type Antibody Screen 01/23/19 01/23/19 01/23/19 12:50 12:50 13:24 WBC RBC Hgb Hct MCV MCH MCHC RDW Plt Count MPV Absolute Neuts (auto) Neutrophils % Lymphocytes % Monocytes % Eosinophils % Basophils % Nucleated RBC % ESR PT with INR 12.50 INR 1.06 Sodium Potassium Chloride Carbon Dioxide Anion Gap BUN Creatinine Est GFR (CKD-EPI)AfAm Est GFR (CKD-EPI)NonAf Random Glucose Calcium Magnesium Total Bilirubin AST ALT Alkaline Phosphatase Troponin I B-Natriuretic Peptide Total Protein Albumin Vitamin B12 Serum Folate TSH Urine Color Yellow Urine Appearance Clear Urine pH 7.5 D Ur Specific [place] 1.014 Urine Protein Trace Urine Glucose (UA) Negative Urine Ketones Trace H Urine Blood Negative Urine Nitrite Negative Urine Bilirubin Negative Urine Urobilinogen 0.2 Ur Leukocyte Esterase Negative Blood Type O NEGATIVE Antibody Screen Negative 01/23/19 01/24/19 01/24/19 17:00 05:15 05:15 WBC RBC Hgb Hct MCV MCH MCHC RDW Plt Count MPV Absolute Neuts (auto) Neutrophils % Lymphocytes % Monocytes % Eosinophils % Basophils % Nucleated RBC % ESR 8 PT with INR INR Sodium 140 Potassium 3.6 Chloride 104 Carbon Dioxide 28 Anion Gap 8 BUN 17.9 Creatinine 0.6 Est GFR (CKD-EPI)AfAm 96.33 Est GFR (CKD-EPI)NonAf 83.11 Random Glucose 81 Calcium 9.5 Magnesium 2.4 Total Bilirubin AST ALT Alkaline Phosphatase Troponin I < 0.02 B-Natriuretic Peptide Total Protein Albumin Vitamin B12 Serum Folate TSH Urine Color Urine Appearance Urine pH Ur Specific [place] Urine Protein Urine Glucose (UA) Urine Ketones Urine Blood Urine Nitrite Urine Bilirubin Urine Urobilinogen Ur Leukocyte Esterase Blood Type O NEGATIVE Antibody Screen 01/24/19 05:15 WBC RBC Hgb Hct MCV MCH MCHC RDW Plt Count MPV Absolute Neuts (auto) Neutrophils % Lymphocytes % Monocytes % Eosinophils % Basophils % Nucleated RBC % ESR PT with INR INR Sodium Potassium Chloride Carbon Dioxide Anion Gap BUN Creatinine Est GFR (CKD-EPI)AfAm Est GFR (CKD-EPI)NonAf Random Glucose Calcium Magnesium Total Bilirubin AST ALT Alkaline Phosphatase Troponin I B-Natriuretic Peptide Total Protein Albumin Vitamin B12 516 Serum Folate 34 H TSH Urine Color Urine Appearance Urine pH Ur Specific [place] Urine Protein Urine Glucose (UA) Urine Ketones Urine Blood Urine Nitrite Urine Bilirubin Urine Urobilinogen Ur Leukocyte Esterase Blood Type Antibody Screen Vital Signs Temperature 98 F 01/24/19 05:44 Pulse Rate 88 01/24/19 05:44 Respiratory Rate 18 01/24/19 05:44 Blood Pressure 162/76 01/24/19 05:44 O2 Sat by Pulse Oximetry (%) 96 01/23/19 20:20 CC: weakness ````````````````````` skin--NL color heart--RR neuro--alert; coherent, no focal deficits ``````````````````````````````````````` Summ > SOB--with elevated BNP, speaks for diast dysf. BP meds adjusted; to undergo pharm stress test. PLAN: mgmt will depend on results of stress test > Htn--elevated SBP--now started on Bystolic and RHIANNON; await f/u readings > edema--ongoing; cause unclear; perhaps Rt vent dysf (with highy pressures); no signs of liver or kidney dz. PLAN: diuresis > elevated PLT--on Hydrea; will check PLT in AM ``````````````````````````````````````` Dr Campbell Problem List - Problems (1) Shortness of breath Code(s): R06.02 - SHORTNESS OF BREATH (2) Edema Code(s): R60.9 - EDEMA, UNSPECIFIED Qualifiers: Edema type: localized Qualified Code(s): R60.0 - Localized edema (3) Diastolic CHF with preserved left ventricular function, NYHA class 2 Code(s): I50.30 - UNSPECIFIED DIASTOLIC (CONGESTIVE) HEART FAILURE (4) Thrombocythemia, essential Code(s): D47.3 - ESSENTIAL (HEMORRHAGIC) THROMBOCYTHEMIA (5) Hypothyroidism (acquired) Code(s): E03.9 - HYPOTHYROIDISM, UNSPECIFIED (6) Hyperparathyroidism Code(s): E21.3 - HYPERPARATHYROIDISM, UNSPECIFIED (7) Osteoporosis Code(s): M81.0 - AGE-RELATED OSTEOPOROSIS W/O CURRENT PATHOLOGICAL FRACTURE Qualifiers: Osteoporosis type: unspecified (8) Ulcer of left lower leg Code(s): L97.929 - NON-PRS CHRONIC ULC UNSP PRT OF L LOW LEG W UNSP SEVERITY Qualifiers: Non-pressure ulcer stage: limited to breakdown of skin Qualified Code(s): L97.921 - Non-pressure chronic ulcer of unspecified part of left lower leg limited to breakdown of skin (9) Hypertension Code(s): I10 - ESSENTIAL (PRIMARY) HYPERTENSION Qualifiers: Hypertension type: unspecified Qualified Code(s): I10 - Essential (primary ) hypertension (10) Cognitive dysfunction associated with depression Code(s): F06.8 - OTH MENTAL DISORDERS DUE TO KNOWN PHYSIOLOGICAL CONDITION; F32.9 - MAJOR DEPRESSIVE DISORDER, SINGLE EPISODE, UNSPECIFIED (11) Gait difficulty Code(s): R26.9 - UNSPECIFIED ABNORMALITIES OF GAIT AND MOBILITY
[2019-01-24] MEDS ORDERED: PT OWN MED DRAWER 7, Y5N ONE ×3 (13:50→21:33)
[2019-01-24] MEDS: HYDROXYUREA 500 MG CAPSULE PO SCH ×2 (14:11→21:37)
[2019-01-24] MEDS: COLLAGENASE CLOSTRIDIUM HIST. 30 GRAMS TUBE TP SCH (21:37)
[2019-01-25 06:13] LABS: HEMATOCRIT 32.3 % (32.4-45.2); HEMOGLOBIN 11.1 GM/dL (10.7-15.3); MCH 28.9 pg (25.7-33.7); MCHC 34.3 g/dl (32.0-36.0); MEAN CELL VOLUME 84.3 fl (80-96); MEAN PLT VOLUME 6.8 fl (7.5-11.1); PLATELET COUNT 799 K/MM3 (134-434); RBC 3.84 M/mm3 (3.60-5.2); RDW 17.8 % (11.6-15.6); WHITE BLOOD COUNT 13.6 K/mm3 (4.0-10.0)
[2019-01-25] MEDS: LEVOTHYROXINE NA 100 MCG TABLET (FP) PO SCH (06:22)
[2019-01-25 06:42] LABS: BLOOD UREA NITROGEN 22.8 mg/dL (7-18); CALCIUM 9.7 mg/dL (8.5-10.1); CREATININE 0.7 mg/dL (0.55-1.3); POTASSIUM 3.5 mmol/L (3.5-5.1)
[2019-01-25] MEDS ORDERED: REGADENOSON 0.4 MG/5 ML PRE-FILLED SYRINGE IVPUSH ONE ×2 (09:15→10:00)
--- NOTE | 2019-01-25 11:46 | PN ---
Progress Note, Physician Chief Complaint: sob History of Present Illness: reports sporadic sob at home at rest. hasn't noticed sob today and ? none yest no cp no feet swelling no palpit had stress test earlier this am - Current Medication List Current Medications: Active Medications Aspirin (Ecotrin -) 81 mg PO DAILY [facility] Last Admin: 01/24/19 10:55 Dose: 81 mg Collagenase (Santyl -) 1 applic TP BID [facility] Last Admin: 01/24/19 21:37 Dose: 1 applic Enoxaparin Sodium (Lovenox -) 40 mg SQ DAILY [facility] Last Admin: 01/24/19 10:55 Dose: 40 mg Hydroxyurea (Hydrea -) 1,000 mg PO BID [facility] Last Admin: 01/24/19 21:37 Dose: 1,000 mg Levothyroxine Sodium (Synthroid -) 100 mcg PO DAILY@0700 [facility] Last Admin: 01/25/19 06:22 Dose: Not Given Lisinopril (Prinivil) 10 mg PO DAILY [facility] Last Admin: 01/24/19 10:55 Dose: 10 mg Nebivolol (Bystolic -) 5 mg PO DAILY [facility] Last Admin: 01/24/19 10:55 Dose: 5 mg - Objective Vital Signs: Vital Signs Temperature 98.6 F 01/25/19 10:00 Pulse Rate 67 01/25/19 10:00 Respiratory Rate 18 01/25/19 10:00 Blood Pressure 170/88 01/25/19 10:00 O2 Sat by Pulse Oximetry (%) 96 01/25/19 09:00 Constitutional: Yes: Well Nourished, No Distress, Calm Cardiovascular: Yes: Regular Rate and Rhythm, S1, S2. No: JVD, Gallop, Murmur Respiratory: Yes: Regular, CTA Bilaterally. No: Accessory Muscle Use, Rales, Wheezes Extremities: No: Cold Edema: No Neurological: Yes: Alert, Oriented Labs: CBC, BMP 01/25/19 05:50 01/25/19 05:50 INR, PTT INR 1.06 (0.83-1.09) 01/23/19 12:50 Assessment/Plan tele: JUANCHO Echo 02/10: nl LVEF. nl RV. valves WNL. RVSP 41. IMP: 1. Dyspnea of unclear etiology: suspect diastolic CHF with mild pulm HTN noted on echo here and BNP signif elevated vs recent baseline (less likely COPD vs. s.e. to Metoprolol vs depression/anxiety) 2. Chronic diastolic dysfx 3. Chronic HTN 4. Essential thrombocytosis 5. Hypothyroidism 6. Recent syncopal episodes 7. 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 Suspected depression. REC: 1. trop neg x 2, EKG no ischemic changes. had MPI today--awaiting results. 2. BNP 2K (from 300 in 11/10). received lasix 40 IV qd. wt improved slightly, no more sob. c/o intolerable urinary freq on lasix at home, ? was on 20 qd. rec trial of lasix 40 qd at home--if intolerable, rec consider lasix 20 with spirono 12.5 3. Recent CTA (October)- no PE, "mild COPD" noted, toprol stopped at that time--OF NOTE, HER SOB DID NOT IMPROVE. consider inhalers if she does not respond to diuretics. 4. BP is mildly elevated, pt with known chronic anxiety--reassess trend as outpt. consider spirono as above. 5. if stress test negative, ok for d/c on lasix 40
[2019-01-25] MEDS: HYDROXYUREA 500 MG CAPSULE PO SCH ×2 (13:55→22:58)
[2019-01-25] MEDS ORDERED: PT OWN MED DRAWER 7, Y5N ONE ×2 (13:55→22:12)
[2019-01-25] MEDS: NEBIVOLOL 5 MG TABLET (FP) PO SCH (13:56)
[2019-01-25] MEDS: LISINOPRIL 10 MG TABLET (FP) PO SCH (13:56)
[2019-01-25] MEDS: COLLAGENASE CLOSTRIDIUM HIST. 30 GRAMS TUBE TP SCH ×2 (13:57→23:06)
[2019-01-25] MEDS: ENOXAPARIN NA (PORCINE) 40 MG/0.4 ML DISP.SYRIN SQ SCH (13:57)
[2019-01-25] MEDS: ASPIRIN COATED 81 MG TABLET.EC PO SCH (13:57)
--- NOTE | 2019-01-25 14:20 | PN ---
Progress Note (short form) - Note Progress Note: Current Medications Aspirin (Ecotrin -) 81 mg PO DAILY [facility] Last Admin: 01/24/19 10:55 Dose: 81 mg Collagenase (Santyl -) 1 applic TP BID [facility] Last Admin: 01/24/19 21:37 Dose: 1 applic Enoxaparin Sodium (Lovenox -) 40 mg SQ DAILY [facility] Last Admin: 01/24/19 10:55 Dose: 40 mg Furosemide (Lasix -) 40 mg PO DAILY [facility] Hydroxyurea (Hydrea -) 1,000 mg PO BID [facility] Last Admin: 01/24/19 21:37 Dose: 1,000 mg Levothyroxine Sodium (Synthroid -) 100 mcg PO DAILY@0700 [facility] Last Admin: 01/25/19 06:22 Dose: Not Given Lisinopril (Prinivil) 10 mg PO DAILY [facility] Last Admin: 01/24/19 10:55 Dose: 10 mg Nebivolol (Bystolic -) 5 mg PO DAILY [facility] Last Admin: 01/24/19 10:55 Dose: 5 mg Laboratory Results - last 24 hr 01/25/19 01/25/19 05:50 05:50 WBC 13.6 H RBC 3.84 Hgb 11.1 Hct 32.3 L MCV 84.3 MCH 28.9 MCHC 34.3 RDW 17.8 H Plt Count 799 H MPV 6.8 L Sodium 140 Potassium 3.5 Chloride 104 Carbon Dioxide 31 Anion Gap 6 L BUN 22.8 H Creatinine 0.7 Est GFR (CKD-EPI)AfAm 91.57 Est GFR (CKD-EPI)NonAf 79.00 Random Glucose 92 Calcium 9.7 Vital Signs Temperature 98.6 F 01/25/19 10:00 Pulse Rate 67 01/25/19 10:00 Respiratory Rate 18 01/25/19 10:00 Blood Pressure 170/88 01/25/19 10:00 O2 Sat by Pulse Oximetry (%) 96 01/25/19 09:00 Latest BP this afternoon is: 145/74 ``````````````````````````````````````````````````````````` CC: no CP SOB at rest ```````````````````````````````````````````````````` skin--NL color eyes--anicteric; midline oral--symmetric neck--no Masses lungs--grossly clear heart--RR abd--BS+ extr--no edema in supine position; no ischemic changes neuro--awake; verbal; speech is fluent; follows commands; no focal motor deficits ````````````````````````````````````````````````````` Summ > diastolic heart failure--as evidenced by volume overload; high BNP and RV dysf. Has been receiving Diuretics and seems to have less edema. Has completed Pharm stress test & nuclear, now await official results. PLAN: cont current meds for now; PT is stress test is negative > Thrombocythemia--chronic; has been on high dose Hydrea for 2 days; PLT count slightly lower but will take further time to determine how effective this dose is. Does not seem to have any striking GI ill effects. PLAN: increase dose of ASA; will check CBC periodically. > HTN--BP higher this AM; may need higher dose of RHIANNON; might be able to increase dose of BB if HR allows for it. > Ulcer LLE--slowly healing; cont current topical care > Constip--add laxatives > hypothyroid--seems to be okay on current dose of hormone > fatigue (other)--related to decdompensated heart Dz together with other coalescing co-morbidities > SOB--not continuous; has not c/o SOB at rest; could be 2nd decomp diast failure; doubt due to COPD. Will see if she developes exertional dyspnea once she is seen by PT. ``````````````````````````````````` Dr Campbell Problem List - Problems (1) Shortness of breath Code(s): R06.02 - SHORTNESS OF BREATH (2) Edema Code(s): R60.9 - EDEMA, UNSPECIFIED Qualifiers: Edema type: localized Qualified Code(s): R60.0 - Localized edema (3) Diastolic CHF with preserved left ventricular function, NYHA class 2 Code(s): I50.30 - UNSPECIFIED DIASTOLIC (CONGESTIVE) HEART FAILURE (4) Thrombocythemia, essential Code(s): D47.3 - ESSENTIAL (HEMORRHAGIC) THROMBOCYTHEMIA (5) Hypothyroidism (acquired) Code(s): E03.9 - HYPOTHYROIDISM, UNSPECIFIED (6) Hyperparathyroidism Code(s): E21.3 - HYPERPARATHYROIDISM, UNSPECIFIED (7) Osteoporosis Code(s): M81.0 - AGE-RELATED OSTEOPOROSIS W/O CURRENT PATHOLOGICAL FRACTURE Qualifiers: Osteoporosis type: unspecified (8) Ulcer of left lower leg Code(s): L97.929 - NON-PRS CHRONIC ULC UNSP PRT OF L LOW LEG W UNSP SEVERITY Qualifiers: Non-pressure ulcer stage: limited to breakdown of skin Qualified Code(s): L97.921 - Non-pressure chronic ulcer of unspecified part of left lower leg limited to breakdown of skin (9) Hypertension Code(s): I10 - ESSENTIAL (PRIMARY) HYPERTENSION Qualifiers: Hypertension type: unspecified Qualified Code(s): I10 - Essential (primary ) hypertension (10) Cognitive dysfunction associated with depression Code(s): F06.8 - OTH MENTAL DISORDERS DUE TO KNOWN PHYSIOLOGICAL CONDITION; F32.9 - MAJOR DEPRESSIVE DISORDER, SINGLE EPISODE, UNSPECIFIED (11) Gait difficulty Code(s): R26.9 - UNSPECIFIED ABNORMALITIES OF GAIT AND MOBILITY
[2019-01-25] MEDS ORDERED: ESCITALOPRAM OXALATE 10 MG TABLET (FP) PO ONE (14:21)
[2019-01-25] MEDS ORDERED: POTASSIUM CHLORIDE TABS 10 MEQ TABLET.ER (FP) PO ONE (14:28)
[2019-01-25] MEDS: LACTULOSE 20 GM/30 ML UDC (FOR ORAL USE ONLY) PO SCH ×2 (17:18→22:56)
[2019-01-25] MEDS ORDERED: ESCITALOPRAM OXALATE 10 MG TABLET (FP) PO SCH (22:00)
[2019-01-25] MEDS: DOCUSATE SODIUM 100 MG CAPSULE (FP) PO SCH (22:58)
[2019-01-26 05:49] LABS: HEMATOCRIT 34.8 % (32.4-45.2); HEMOGLOBIN 11.6 GM/dL (10.7-15.3); MCH 28.3 pg (25.7-33.7); MCHC 33.4 g/dl (32.0-36.0); MEAN CELL VOLUME 84.8 fl (80-96); MEAN PLT VOLUME 7.2 fl (7.5-11.1); PLATELET COUNT 924 K/MM3 (134-434); RDW 17.7 % (11.6-15.6); WHITE BLOOD COUNT 24.9 K/mm3 (4.0-10.0)
[2019-01-26 06:11] LABS: BLOOD UREA NITROGEN 23.4 mg/dL (7-18); CALCIUM 10.2 mg/dL (8.5-10.1); CREATININE 0.7 mg/dL (0.55-1.3); POTASSIUM 3.4 mmol/L (3.5-5.1)
[2019-01-26] MEDS: DOCUSATE SODIUM 100 MG CAPSULE (FP) PO SCH (06:38)
[2019-01-26] MEDS: LEVOTHYROXINE NA 100 MCG TABLET (FP) PO SCH (06:39)
[2019-01-26] MEDS ORDERED: KCL 10 MEQ IVPB 10 MEQ/100 ML INFUS.BAG IVPB SCH (10:15)
--- NOTE | 2019-01-26 10:22 | PN ---
Progress Note, Physician Chief Complaint: Stress WNL TELE: NSR - Current Medication List Current Medications: Active Medications Aspirin (Ecotrin -) 162 mg PO DAILY [facility] Collagenase (Santyl -) 1 applic TP BID [facility] Last Admin: 01/25/19 23:06 Dose: 1 applic Docusate Sodium (Colace -) 100 mg PO TID [facility] Last Admin: 01/26/19 06:38 Dose: Not Given Enoxaparin Sodium (Lovenox -) 40 mg SQ DAILY [facility] Last Admin: 01/25/19 13:57 Dose: 40 mg Escitalopram Oxalate (Lexapro -) 10 mg PO DAILY [facility] Furosemide (Lasix -) 40 mg PO DAILY [facility] Hydroxyurea (Hydrea -) 1,000 mg PO BID [facility] Last Admin: 01/25/19 22:58 Dose: 1,000 mg Potassium Chloride (Potassium Chloride 10 Meq Premix Ivpb -) 10 meq in 100 mls @ 100 mls/hr IVPB Q60M [facility] Stop: 01/26/19 11:14 Lactulose (Cephulac (Oral Use)) 20 gm PO BID [facility] Last Admin: 01/25/19 22:56 Dose: Not Given Levothyroxine Sodium (Synthroid -) 100 mcg PO DAILY@0700 [facility] Last Admin: 01/26/19 06:39 Dose: 100 mcg Lisinopril (Prinivil) 10 mg PO DAILY [facility] Last Admin: 01/25/19 13:56 Dose: 10 mg Multivitamins/Minerals/Vitamin C (Tab-A-Vit -) 1 tab PO DAILY [facility] Nebivolol (Bystolic -) 10 mg PO DAILY [facility] - Objective Vital Signs: Vital Signs Temperature 97.5 F L 01/26/19 09:00 Pulse Rate 86 01/26/19 09:00 Respiratory Rate 20 01/26/19 09:00 Blood Pressure 179/88 H 01/26/19 09:00 O2 Sat by Pulse Oximetry (%) 96 01/26/19 09:00 Constitutional: Yes: No Distress, Calm Cardiovascular: Yes: Regular Rate and Rhythm Respiratory: Yes: CTA Bilaterally Gastrointestinal: Yes: Soft Edema: No Neurological: Yes: Alert Labs: CBC, BMP 01/26/19 05:25 01/26/19 05:25 INR, PTT INR 1.06 (0.83-1.09) 01/23/19 12:50 Assessment/Plan Assessment/Plan tele: JUANCHO Echo 02/10: nl LVEF. nl RV. valves WNL. RVSP 41. IMP: 1. Dyspnea of unclear etiology: suspect diastolic CHF with mild pulm HTN noted on echo here and BNP signif elevated vs recent baseline (less likely COPD vs. s.e. to Metoprolol vs depression/anxiety) 2. Chronic diastolic dysfx 3. Chronic HTN 4. Essential thrombocytosis 5. Hypothyroidism 6. Recent syncopal episodes 7. 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 Suspected depression. REC: 1. trop neg x 2, EKG no ischemic changes. Normal nuclear stress test. 2. BNP 2K (from 300 in 11/10). received lasix 40 IV qd with improvement; continue PO Lasix. 3. Recent CTA (October)- no PE, "mild COPD" noted, toprol stopped at that time--OF NOTE, HER SOB DID NOT IMPROVE. consider inhalers if she does not respond to diuretics. 4. BP is mildly elevated, bystolic titrated. 5. if stress test negative, ok for d/c on lasix 40 with outpt f/u 6. Dispo planning.
[2019-01-26] MEDS: HYDROXYUREA 500 MG CAPSULE PO SCH ×2 (10:36→22:18)
[2019-01-26] MEDS: FUROSEMIDE 40 MG TABLET (FP) PO SCH (10:36)
[2019-01-26] MEDS: ASPIRIN COATED 81 MG TABLET.EC PO SCH (10:36)
[2019-01-26] MEDS: MULTIVITAMINS (DAILY MVI) TABLET (FP) PO SCH (10:37)
[2019-01-26] MEDS: LISINOPRIL 10 MG TABLET (FP) PO SCH (10:37)
[2019-01-26] MEDS: LACTULOSE 20 GM/30 ML UDC (FOR ORAL USE ONLY) PO SCH (10:37)
[2019-01-26] MEDS: ESCITALOPRAM OXALATE 10 MG TABLET (FP) PO SCH (10:38)
[2019-01-26] MEDS: NEBIVOLOL 5 MG TABLET (FP) PO SCH (10:38)
[2019-01-26] MEDS: ENOXAPARIN NA (PORCINE) 40 MG/0.4 ML DISP.SYRIN SQ SCH (10:38)
[2019-01-26] MEDS: COLLAGENASE CLOSTRIDIUM HIST. 30 GRAMS TUBE TP SCH ×2 (10:42→22:18)
[2019-01-26] MEDS ORDERED: PT OWN MED DRAWER 7, Y5N ONE (12:45)
[2019-01-26] MEDS: NEBIVOLOL 10 MG TABLET (FP) PO SCH (12:51)
--- NOTE | 2019-01-26 13:48 | PN ---
Progress Note (short form) - Note Progress Note: Current Medications Aspirin (Ecotrin -) 162 mg PO DAILY [facility] Last Admin: 01/26/19 10:36 Dose: 162 mg Collagenase (Santyl -) 1 applic TP BID [facility] Last Admin: 01/25/19 23:06 Dose: 1 applic Enoxaparin Sodium (Lovenox -) 40 mg SQ DAILY [facility] Last Admin: 01/26/19 10:38 Dose: 40 mg Escitalopram Oxalate (Lexapro -) 10 mg PO DAILY [facility] Last Admin: 01/26/19 10:38 Dose: 10 mg Furosemide (Lasix -) 40 mg PO DAILY [facility] Last Admin: 01/26/19 10:36 Dose: 40 mg Hydroxyurea (Hydrea -) 1,000 mg PO BID [facility] Last Admin: 01/26/19 10:36 Dose: 1,000 mg Levothyroxine Sodium (Synthroid -) 100 mcg PO DAILY@0700 [facility] Last Admin: 01/26/19 06:39 Dose: 100 mcg Lisinopril (Prinivil) 10 mg PO DAILY [facility] Last Admin: 01/26/19 10:37 Dose: 10 mg Multivitamins/Minerals/Vitamin C (Tab-A-Vit -) 1 tab PO DAILY [facility] Last Admin: 01/26/19 10:37 Dose: 1 tab Nebivolol (Bystolic -) 10 mg PO DAILY [facility] Last Admin: 01/26/19 12:51 Dose: 10 mg Laboratory Results - last 24 hr 01/26/19 01/26/19 05:25 05:25 WBC 24.9 H RBC 4.10 Hgb 11.6 Hct 34.8 MCV 84.8 MCH 28.3 MCHC 33.4 RDW 17.7 H Plt Count 924 H MPV 7.2 L Sodium 141 Potassium 3.4 L Chloride 105 Carbon Dioxide 28 Anion Gap 8 BUN 23.4 H Creatinine 0.7 Est GFR (CKD-EPI)AfAm 91.57 Est GFR (CKD-EPI)NonAf 79.00 Random Glucose 126 H Calcium 10.2 H Vital Signs Temperature 97.5 F L 01/26/19 09:00 Pulse Rate 86 01/26/19 09:00 Respiratory Rate 20 01/26/19 09:00 Blood Pressure 179/88 H 01/26/19 09:00 O2 Sat by Pulse Oximetry (%) 96 01/26/19 09:00 CC: episode of nausea this AM ````````````````````````````````` skin--NL color; shallow oblong sore on the anterior lat LLE eyes--anicteric; midline oral--symmetric neck--no masses lungs--grossly clear heart--RR abd--BS+, NT extr--no edema in supine position; no ischemic changes neuro--awake; listless/drowsy, verbal; speech is fluent; follows commands ````````````````````````````````````````````````````` Summ > acute delirium--occuring at night; w/o sleep, now calm and less agitated; able to focus. cause multifactoral; doubt infection or other metabolic derangements: Plan: check CXR; PRN antipsychotic > Low potassium--replenish as needed > diastolic heart failure--as evidenced by volume overload; high BNP and RV dysf. Stress test benign. PLAN: cont current meds for now. For eventual rehab as she seems to be a candidate > Thrombocythemia--chronic; has been on high dose Hydrea for 2 days; PLt count now higher in wake of acute agitated/delirius state (along with WBC); could represent demargination 2nd adrenaline outpouring. PLAN: hem-onc consult re use of PLT lowering agents > Leukemoid rx--in wake of acute state of delirium; will repeat; check CXR > HTN--BP higher this AM; high SBP with HR in 70 -80's PLAN: increase dose of BB. > Ulcer LLE--slowly healing; cont current topical care > Constip--resolved. > hypothyroid--seems to be okay on current dose of hormone > fatigue (other)--related to decdompensated heart Dz together with other coalescing co-morbidities > affective Dz--situational; will try SSRI > SOB--not continuous; has not c/o SOB at rest; could be 2nd decomp diast failure; doubt due to COPD. ``````````````````````````````````` Dr Campbell Problem List - Problems (1) Shortness of breath Code(s): R06.02 - SHORTNESS OF BREATH (2) Edema Code(s): R60.9 - EDEMA, UNSPECIFIED Qualifiers: Edema type: localized Qualified Code(s): R60.0 - Localized edema (3) Diastolic CHF with preserved left ventricular function, NYHA class 2 Code(s): I50.30 - UNSPECIFIED DIASTOLIC (CONGESTIVE) HEART FAILURE (4) Thrombocythemia, essential Code(s): D47.3 - ESSENTIAL (HEMORRHAGIC) THROMBOCYTHEMIA (5) Hypothyroidism (acquired) Code(s): E03.9 - HYPOTHYROIDISM, UNSPECIFIED (6) Hyperparathyroidism Code(s): E21.3 - HYPERPARATHYROIDISM, UNSPECIFIED (7) Osteoporosis Code(s): M81.0 - AGE-RELATED OSTEOPOROSIS W/O CURRENT PATHOLOGICAL FRACTURE Qualifiers: Osteoporosis type: unspecified (8) Ulcer of left lower leg Code(s): L97.929 - NON-PRS CHRONIC ULC UNSP PRT OF L LOW LEG W UNSP SEVERITY Qualifiers: Non-pressure ulcer stage: limited to breakdown of skin Qualified Code(s): L97.921 - Non-pressure chronic ulcer of unspecified part of left lower leg limited to breakdown of skin (9) Hypertension Code(s): I10 - ESSENTIAL (PRIMARY) HYPERTENSION Qualifiers: Hypertension type: unspecified Qualified Code(s): I10 - Essential (primary ) hypertension (10) Cognitive dysfunction associated with depression Code(s): F06.8 - OTH MENTAL DISORDERS DUE TO KNOWN PHYSIOLOGICAL CONDITION; F32.9 - MAJOR DEPRESSIVE DISORDER, SINGLE EPISODE, UNSPECIFIED (11) Gait difficulty Code(s): R26.9 - UNSPECIFIED ABNORMALITIES OF GAIT AND MOBILITY
--- NOTE | 2019-01-26 19:17 | CONSULT ---
Consult - text type - Consultation Consultation Note: Hematology and oncology consult: Subjective: the patient is an 83-year-old female with a past medical history of hypertension , hyperthyroidism, hyperparathyroidism and essential thrombocytosis who presented to the emergency department complaining of progressive shortness of breath over the past few weeks. The patient was admitted for treatment of acute CHF exacerbation. Hematology was consulted for assistance in the treatment of the patient's essential thrombocytosis. On evaluation, the patient is well appearing and has no complaints. She states that her breathing is better. The patient denies any episodes of thrombosis, a pulmonary emboli or any family history of thrombosis. She was previously treated with Agrylin, but was not able to tolerate the side effects. She is currently being treated with hydroxyurea 1 g PO BID. Objective: Vital Signs Temperature 98.5 F 01/26/19 14:00 Pulse Rate 81 01/26/19 14:00 Respiratory Rate 20 01/26/19 14:00 Blood Pressure 135/61 01/26/19 14:00 O2 Sat by Pulse Oximetry (%) 96 01/26/19 09:00 Physical exam: Gen.: patient found lying in bed. Well appearing. Awake, alert. Lungs: clear to auscultation bilaterally down to the bases. Heart: regular rate and rhythm. S1, S2 heard. No murmurs gallops or rubs heard. Abdomen: soft, nontender, nondistended. Bowel sounds heard. Extremities: no peripheral edema noted. No bruising, swelling, erythema or warmth of extremities noted. neuro: patient A&O x3. Moving all four limbs spontaneously. CBC, BMP 01/26/19 05:25 01/26/19 05:25 Assessment and plan: The patient is an 83-year-old female with a past medical history of hypertension , hyperthyroidism, hyperparathyroidism and essential thrombocytosis who presented to the emergency department complaining of progressive shortness of breath over the past few weeks. The patient was admitted for treatment of acute CHF exacerbation. Hematology was consulted for assistance in the treatment of the patient's essential thrombocytosis. #Essential thrombocytosis -platelets today 924 -no overt evidence of thrombosis or hypercoagulability at this time -patient currently being treated with hydroxyurea 1 g PO BID -current home thrombocytosis regimen unclear. -Patient may need up titration of hydroxyurea to maintain normal platelet count.
[2019-01-26] MEDS ORDERED: LISINOPRIL 5 MG TABLET (FP) PO STA (20:50)
[2019-01-26] MEDS ORDERED: OLANZapine 2.5 MG TABLET PO PRN (22:00)
[2019-01-27] MEDS: LEVOTHYROXINE NA 100 MCG TABLET (FP) PO SCH (06:38)
--- NOTE | 2019-01-27 06:50 | PN ---
Progress Note, Physician Chief Complaint: TELE: NSR Denies CP, SOB Confused at times. - Current Medication List Current Medications: Active Medications Aspirin (Ecotrin -) 162 mg PO DAILY [facility] Last Admin: 01/26/19 10:36 Dose: 162 mg Collagenase (Santyl -) 1 applic TP BID [facility] Last Admin: 01/26/19 22:18 Dose: 1 applic Enoxaparin Sodium (Lovenox -) 40 mg SQ DAILY [facility] Last Admin: 01/26/19 10:38 Dose: 40 mg Escitalopram Oxalate (Lexapro -) 10 mg PO DAILY [facility] Last Admin: 01/26/19 10:38 Dose: 10 mg Furosemide (Lasix -) 40 mg PO DAILY [facility] Last Admin: 01/26/19 10:36 Dose: 40 mg Hydroxyurea (Hydrea -) 1,000 mg PO BID [facility] Last Admin: 01/26/19 22:18 Dose: 1,000 mg Levothyroxine Sodium (Synthroid -) 100 mcg PO DAILY@0700 [facility] Last Admin: 01/27/19 06:38 Dose: 100 mcg Lisinopril (Prinivil) 10 mg PO DAILY [facility] Last Admin: 01/26/19 10:37 Dose: 10 mg Multivitamins/Minerals/Vitamin C (Tab-A-Vit -) 1 tab PO DAILY [facility] Last Admin: 01/26/19 10:37 Dose: 1 tab Nebivolol (Bystolic -) 10 mg PO DAILY [facility] Last Admin: 01/26/19 12:51 Dose: 10 mg Olanzapine (Zyprexa -) 2.5 mg PO HS PRN PRN Reason: AGITATION Stop: 01/30/19 23:59 - Objective Vital Signs: Vital Signs Temperature 98.4 F 01/27/19 05:59 Pulse Rate 72 01/27/19 05:59 Respiratory Rate 20 01/27/19 05:59 Blood Pressure 156/69 01/27/19 05:59 O2 Sat by Pulse Oximetry (%) 96 01/26/19 09:00 Constitutional: Yes: No Distress Cardiovascular: Yes: Regular Rate and Rhythm Respiratory: Yes: CTA Bilaterally Gastrointestinal: Yes: Soft Edema: No Neurological: Yes: Alert, Oriented Labs: INR, PTT INR 1.06 (0.83-1.09) 01/23/19 12:50 Laboratory Tests 01/27/19 01/27/19 05:55 05:55 WBC 18.1 H Hgb 10.5 L Plt Count 762 H Sodium 139 Potassium 3.6 BUN 25.9 H Creatinine 0.6 Random Glucose 90 Calcium 9.9 Laboratory Tests 01/27/19 01/27/19 05:55 05:55 WBC 18.1 H Hgb 10.5 L Plt Count 762 H Sodium 139 Potassium 3.6 Creatinine 0.6 Calcium 9.9 - ....Imaging EKG: Image Reviewed Assessment/Plan Echo 02/10: nl LVEF. nl RV. valves WNL. RVSP 41. IMP: 1. Dyspnea of unclear etiology: suspect diastolic CHF with mild pulm HTN noted on echo here and BNP signif elevated vs recent baseline (less likely COPD vs. s.e. to Metoprolol vs depression/anxiety) 2. Chronic diastolic dysfx 3. Chronic HTN 4. Essential thrombocytosis 5. Hypothyroidism 6. Recent syncopal episodes 7. 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 Suspected depression. REC: 1. trop neg x 2, EKG no ischemic changes. Normal nuclear stress test. 2. BNP 2K (from 300 in 11/10). received lasix 40 IV qd with improvement; continue PO Lasix. 3. Recent CTA (October)- no PE, "mild COPD" noted, as per PMD. 4. BP trending in right direction and mildly improved with titration of Bystolic , currently acceptable and near the goal of 150/90 for age group. Would use caution in titrating further or introducing additional BP meds now as she is also newly started on standing Lasix. Close outpatient f/u of BP recommended. 5. Heme input noted. OK to d/c telemetry.
[2019-01-27 06:51] LABS: HEMATOCRIT 31.2 % (32.4-45.2); HEMOGLOBIN 10.5 GM/dL (10.7-15.3); MCH 28.4 pg (25.7-33.7); MCHC 33.8 g/dl (32.0-36.0); MEAN CELL VOLUME 84.2 fl (80-96); MEAN PLT VOLUME 7.6 fl (7.5-11.1); PLATELET COUNT 762 K/MM3 (134-434); RDW 17.5 % (11.6-15.6); WHITE BLOOD COUNT 18.1 K/mm3 (4.0-10.0)
[2019-01-27 07:16] LABS: BLOOD UREA NITROGEN 25.9 mg/dL (7-18); CALCIUM 9.9 mg/dL (8.5-10.1); CREATININE 0.6 mg/dL (0.55-1.3); POTASSIUM 3.6 mmol/L (3.5-5.1)
[2019-01-27] MEDS: HYDROXYUREA 500 MG CAPSULE PO SCH ×2 (10:43→23:04)
[2019-01-27] MEDS: ASPIRIN COATED 81 MG TABLET.EC PO SCH (10:43)
[2019-01-27] MEDS: LISINOPRIL 10 MG TABLET (FP) PO SCH ×2 (10:43→23:04)
[2019-01-27] MEDS: NEBIVOLOL 10 MG TABLET (FP) PO SCH (10:43)
[2019-01-27] MEDS: ESCITALOPRAM OXALATE 10 MG TABLET (FP) PO SCH (10:43)
[2019-01-27] MEDS: FUROSEMIDE 40 MG TABLET (FP) PO SCH (10:43)
[2019-01-27] MEDS: MULTIVITAMINS (DAILY MVI) TABLET (FP) PO SCH (10:43)
[2019-01-27] MEDS: ENOXAPARIN NA (PORCINE) 40 MG/0.4 ML DISP.SYRIN SQ SCH (10:44)
[2019-01-27] MEDS: COLLAGENASE CLOSTRIDIUM HIST. 30 GRAMS TUBE TP SCH ×2 (11:29→23:04)
--- NOTE | 2019-01-27 11:31 | PN ---
Progress Note (short form) - Note Progress Note: Current Medications Aspirin (Ecotrin -) 162 mg PO DAILY [facility] Last Admin: 01/27/19 10:43 Dose: 162 mg Collagenase (Santyl -) 1 applic TP BID [facility] Last Admin: 01/26/19 22:18 Dose: 1 applic Enoxaparin Sodium (Lovenox -) 40 mg SQ DAILY [facility] Last Admin: 01/27/19 10:44 Dose: 40 mg Escitalopram Oxalate (Lexapro -) 10 mg PO DAILY [facility] Last Admin: 01/27/19 10:43 Dose: 10 mg Furosemide (Lasix -) 40 mg PO DAILY [facility] Last Admin: 01/27/19 10:43 Dose: 40 mg Hydroxyurea (Hydrea -) 1,000 mg PO BID [facility] Last Admin: 01/27/19 10:43 Dose: 1,000 mg Levothyroxine Sodium (Synthroid -) 100 mcg PO DAILY@0700 [facility] Last Admin: 01/27/19 06:38 Dose: 100 mcg Lisinopril (Prinivil) 10 mg PO DAILY [facility] Last Admin: 01/27/19 10:43 Dose: 10 mg Multivitamins/Minerals/Vitamin C (Tab-A-Vit -) 1 tab PO DAILY [facility] Last Admin: 01/27/19 10:43 Dose: 1 tab Nebivolol (Bystolic -) 10 mg PO DAILY [facility] Last Admin: 01/27/19 10:43 Dose: 10 mg Olanzapine (Zyprexa -) 2.5 mg PO HS PRN PRN Reason: AGITATION Stop: 01/30/19 23:59 Laboratory Results - last 24 hr 01/27/19 01/27/19 05:55 05:55 WBC 18.1 H RBC 3.70 Hgb 10.5 L Hct 31.2 L MCV 84.2 MCH 28.4 MCHC 33.8 RDW 17.5 H Plt Count 762 H MPV 7.6 Sodium 139 Potassium 3.6 Chloride 103 Carbon Dioxide 29 Anion Gap 7 L BUN 25.9 H Creatinine 0.6 Est GFR (CKD-EPI)AfAm 96.33 Est GFR (CKD-EPI)NonAf 83.11 Random Glucose 90 Calcium 9.9 Vital Signs Temperature 98.4 F 01/27/19 05:59 Pulse Rate 72 01/27/19 05:59 Respiratory Rate 20 01/27/19 05:59 Blood Pressure 156/69 01/27/19 05:59 O2 Sat by Pulse Oximetry (%) 96 01/26/19 09:00 CC: has no complaints ````````````````````````````````` skin--NL color; IV site clean eyes--anicteric; midline oral--symmetric; no mucosal lesions appreciated lungs--grossly clear heart--RR abd--soft extr--no edema in supine position; no ischemic changes neuro--awake; pleasant, verbal; speech is fluent; follows commands; good eye contact ````````````````````````````````````````````````````` Summ > acute delirium--may have resolved; no report of agitated behavior (by night nurse) was given to day nurse this AM; but noted to be a bit confused but was easily re-directed PLAN: prn zyprexa if she redevelops acute agitated delirium > Low potassium--replenish as needed > acute diastolic heart failure--as evidenced by volume overload; high BNP and RV dysf. Stress test benign. PLAN: cont current meds for now; chenged to PO lasix. For eventual rehab as she seems to be a candidate > Thrombocythemia--chronic; has been on high dose Hydrea for 2 days; PLt count has now come down to below 800K from yesterday, which could have been due to state of agitation. Heme consult read; will cont on present dose of Hydrea for now. PLAN: check CBC > Leukemoid rx--in wake of acute state of delirium; WBC has now come down to 18K ; CXR was negative and is not febrile or toxic/ill appearing. PLAN: recheck WBC > HTN--BP fluctuates; on BB and RHIANNON; will adjust dose of RHIANNON. > Ulcer LLE--slowly healing; cont current topical care > Constip--resolved. > hypothyroid--seems to be okay on current dose of hormone > fatigue (other)--related to decompensated heart Dz together with other coalescing co-morbidities > affective Dz--situational; placed on SSRI > age related cogn dysf--has been prone to having lapses on confusion, but is easily re-directed > SOB--not continuous; not having SOB at rest; could be 2nd decomp diast failure ; oxygen sats are WNL and RR is NL. doubt this is due to COPD. ``````````````````````````````````` Dr Campbell Problem List - Problems (1) Shortness of breath Code(s): R06.02 - SHORTNESS OF BREATH (2) Edema Code(s): R60.9 - EDEMA, UNSPECIFIED Qualifiers: Edema type: localized Qualified Code(s): R60.0 - Localized edema (3) Diastolic CHF with preserved left ventricular function, NYHA class 2 Code(s): I50.30 - UNSPECIFIED DIASTOLIC (CONGESTIVE) HEART FAILURE (4) Thrombocythemia, essential Code(s): D47.3 - ESSENTIAL (HEMORRHAGIC) THROMBOCYTHEMIA (5) Hypothyroidism (acquired) Code(s): E03.9 - HYPOTHYROIDISM, UNSPECIFIED (6) Hyperparathyroidism Code(s): E21.3 - HYPERPARATHYROIDISM, UNSPECIFIED (7) Osteoporosis Code(s): M81.0 - AGE-RELATED OSTEOPOROSIS W/O CURRENT PATHOLOGICAL FRACTURE Qualifiers: Osteoporosis type: unspecified (8) Ulcer of left lower leg Code(s): L97.929 - NON-PRS CHRONIC ULC UNSP PRT OF L LOW LEG W UNSP SEVERITY Qualifiers: Non-pressure ulcer stage: limited to breakdown of skin Qualified Code(s): L97.921 - Non-pressure chronic ulcer of unspecified part of left lower leg limited to breakdown of skin (9) Hypertension Code(s): I10 - ESSENTIAL (PRIMARY) HYPERTENSION Qualifiers: Hypertension type: unspecified Qualified Code(s): I10 - Essential (primary ) hypertension (10) Cognitive dysfunction associated with depression Code(s): F06.8 - OTH MENTAL DISORDERS DUE TO KNOWN PHYSIOLOGICAL CONDITION; F32.9 - MAJOR DEPRESSIVE DISORDER, SINGLE EPISODE, UNSPECIFIED (11) Gait difficulty Code(s): R26.9 - UNSPECIFIED ABNORMALITIES OF GAIT AND MOBILITY
[2019-01-27] MEDS ORDERED: PT OWN MED DRAWER 7, Y5N ONE (18:46)
--- NOTE | 2019-01-27 19:06 | CONSULT ---
Consult - text type - Consultation Consultation Note: 83yo F with PMH of HTN, Hypothyroidism, Essential thrombocytosis, LLE Cellulitis presenting to ED with complaints of intermittent SOB x3m. SOB is not worsened by exertion, and occurs at rest as well and resolves spontaneously. She is non compliant with Lasix which she takes for edema. Some lightheadedness. Denies chest pain, cough, recent illnesses, fevers, chills, weight fluctuations, syncope, dizziness, back pain, abdominal pain, n/v/d, dysuria, frequency, numbness/tinging, changes in vision. Allergies/Adverse Reactions: Allergies Allergy/AdvReac Type Severity Reaction Status Date / Time nitrofurantoin Allergy Verified 01/23/19 12:00 [From Macrobid] nitrofurantoin Allergy Verified 01/23/19 12:00 macrocrystalline [From Macrobid] Penicillins Allergy Verified 01/23/19 12:00 Home Medications: Ambulatory Orders Levothyroxine [Synthroid] 50 mcg PO DAILY 09/21/12 Lisinopril [Prinivil -] 20 mg PO DAILY 10/04/14 Alendronate Sodium/Vitamin D3 [Fosamax Plus D 70 mg-5,600 Iu vIT d] 1 each PO Q7D MDD takes on Saturdays11/08/18 Furosemide [Lasix] 20 mg PO DAILY PRN 11/08/18 Cholecalciferol (Vitamin D3) [Vitamin D3 -] 1 tab PO DAILY 01/10/19 Metoprolol Succinate [Toprol Xl] 25 mg PO DAILY 01/10/19 ASA - 162 mg PO DAILY 01/17/19 Hydroxyurea 500 mg PO DAILY 01/17/19 PMH Anemia: Yes HTN: Yes Hypercholesterolemia: Yes Thyroid Disease: Yes (s/p right thyroid lobectomy) - Surgical History Abdominal Surgery: Yes (abd hernia) - Psycho Social/Smoking Cessation Hx Smoking History: Never smoked - Vital Signs AFVSS Cor: RSR, No murmurs, No gallops Lungs: Clear to P&A Abd: Soft, Normal bowel sounds, No organomegaly Ext:No significant edema Labs/Meds reviewed 83yo F with PMH of HTN, HLD essential thrombocytosis, Hypothyroidism presenting for intermittent SOB. Being treated for CHF ? COPD Thrombocytosis--had been on hydrea 500mg daily'increased to 1000mg bid Platelets [id number] Monitor trend of platelets, WBC
[2019-01-28] MEDS: LEVOTHYROXINE NA 100 MCG TABLET (FP) PO SCH (06:22)
[2019-01-28 08:15] LABS: HEMATOCRIT 30.9 % (32.4-45.2); HEMOGLOBIN 10.4 GM/dL (10.7-15.3); MCH 28.6 pg (25.7-33.7); MCHC 33.6 g/dl (32.0-36.0); MEAN PLT VOLUME 7.6 fl (7.5-11.1); PLATELET COUNT 720 K/MM3 (134-434); RBC 3.64 M/mm3 (3.60-5.2); RDW 17.5 % (11.6-15.6); WHITE BLOOD COUNT 11.2 K/mm3 (4.0-10.0)
[2019-01-28 08:46] LABS: ALBUMIN 3.2 g/dl (3.4-5.0); BILIRUBIN,TOTAL 0.6 mg/dL (0.2-1); BLOOD UREA NITROGEN 36.2 mg/dL (7-18); CALCIUM 9.7 mg/dL (8.5-10.1); CREATININE 0.7 mg/dL (0.55-1.3); POTASSIUM 3.4 mmol/L (3.5-5.1); TOT PROT 6.2 g/dl (6.4-8.2)
[2019-01-28] MEDS ORDERED: PT OWN MED DRAWER 7, Y5N ONE (09:27)
[2019-01-28] MEDS: LISINOPRIL 10 MG TABLET (FP) PO SCH ×2 (09:34→21:55)
[2019-01-28] MEDS: DOCUSATE SODIUM 100 MG CAPSULE (FP) PO SCH (09:34)
[2019-01-28] MEDS: ASPIRIN COATED 81 MG TABLET.EC PO SCH (09:35)
[2019-01-28] MEDS: MULTIVITAMINS (DAILY MVI) TABLET (FP) PO SCH (09:35)
[2019-01-28] MEDS: ESCITALOPRAM OXALATE 10 MG TABLET (FP) PO SCH (09:35)
[2019-01-28] MEDS: FUROSEMIDE 40 MG TABLET (FP) PO SCH (09:35)
[2019-01-28] MEDS: ENOXAPARIN NA (PORCINE) 40 MG/0.4 ML DISP.SYRIN SQ SCH (09:36)
[2019-01-28] MEDS: MUPIROCIN CA 2% TOPICAL CREAM 15 GM TUBE TP SCH (10:59)
[2019-01-28] MEDS: NEBIVOLOL 10 MG TABLET (FP) PO SCH (11:06)
[2019-01-28] MEDS: HYDROXYUREA 500 MG CAPSULE PO SCH ×2 (11:07→21:54)
[2019-01-28] MEDS ORDERED: POTASSIUM CHLORIDE TABS 10 MEQ TABLET.ER (FP) PO ONE ×2 (11:43→14:15)
--- NOTE | 2019-01-28 11:43 | PN ---
Progress Note (short form) - Note Progress Note: Current Medications Aspirin (Ecotrin -) 162 mg PO DAILY [facility] Last Admin: 01/28/19 09:35 Dose: 162 mg Collagenase (Santyl -) 1 applic TP BID [facility] Last Admin: 01/27/19 23:04 Dose: 1 applic Docusate Sodium (Colace -) 100 mg PO DAILY [facility] Last Admin: 01/28/19 09:34 Dose: 100 mg Enoxaparin Sodium (Lovenox -) 40 mg SQ DAILY [facility] Last Admin: 01/28/19 09:36 Dose: 40 mg Escitalopram Oxalate (Lexapro -) 10 mg PO DAILY [facility] Last Admin: 01/28/19 09:35 Dose: 10 mg Hydroxyurea (Hydrea -) 1,000 mg PO BID [facility] Last Admin: 01/28/19 11:07 Dose: 1,000 mg Levothyroxine Sodium (Synthroid -) 100 mcg PO DAILY@0700 [facility] Last Admin: 01/28/19 06:22 Dose: 100 mcg Lisinopril (Prinivil) 10 mg PO BID [facility] Last Admin: 01/28/19 09:34 Dose: Not Given Multivitamins/Minerals/Vitamin C (Tab-A-Vit -) 1 tab PO DAILY [facility] Last Admin: 01/28/19 09:35 Dose: 1 tab Nebivolol (Bystolic -) 10 mg PO DAILY [facility] Last Admin: 01/28/19 11:06 Dose: 10 mg Olanzapine (Zyprexa -) 2.5 mg PO HS PRN PRN Reason: AGITATION Stop: 01/30/19 23:59 Laboratory Results - last 24 hr 01/28/19 01/28/19 07:00 07:00 WBC 11.2 H RBC 3.64 Hgb 10.4 L Hct 30.9 L MCV 85.0 MCH 28.6 MCHC 33.6 RDW 17.5 H Plt Count 720 H MPV 7.6 Sodium 137 Potassium 3.4 L Chloride 102 Carbon Dioxide 29 Anion Gap 6 L BUN 36.2 H Creatinine 0.7 Est GFR (CKD-EPI)AfAm 91.57 Est GFR (CKD-EPI)NonAf 79.00 Random Glucose 98 Calcium 9.7 Total Bilirubin 0.6 AST 14 L ALT 17 Alkaline Phosphatase 59 Total Protein 6.2 L Albumin 3.2 L Vital Signs Temperature 98.8 F 01/28/19 06:29 Pulse Rate 60 01/28/19 06:29 Respiratory Rate 20 01/28/19 06:29 Blood Pressure 154/77 01/28/19 06:29 O2 Sat by Pulse Oximetry (%) 97 01/28/19 09:00 CC: has no complaints ````````````````````````````````` skin--NL color; some purpura on UE's , IV site clean eyes--anicteric; midline oral--symmetric heart--RR extr--no edema in supine position neuro--awake; pleasant, verbal; speech is fluent; follows commands; good eye contact ````````````````````````````````````````````````````` Summ > acute delirium--resolved; no report of agitated behavior PLAN: prn zyprexa if she redevelops acute agitated delirium > Low potassium--replenish as needed > acute diastolic heart failure--as evidenced by volume overload; high BNP and RV dysf. Stress test benign. PLAN: cont current meds for now; will hold lasix 2nd rising BUN. > Thrombocythemia--chronic; PLT down trending on Hydrea 1000mg BID (Onc note read). PLAN: check CBC > Leukemoid rx--in wake of acute state of delirium; WBC has now come down to ear NL; CXR was negative and is not febrile or toxic/ill appearing. > HTN--BP fluctuates; requires higher dose of RHIANNON-I. > Ulcer LLE--cont current topical care > Constip--resolved. > hypothyroid--seems to be okay on current dose of hormone > affective Dz--situational; placed on SSRI > age related cogn dysf--has been prone to having lapses on confusion, but is easily re-directed > SOB--not continuous; not having SOB at rest; could be 2nd decomp diast failure ; oxygen sats are WNL and RR is NL. doubt this is due to COPD. ``````````````````````````````````` Dr Campbell Problem List - Problems (1) Shortness of breath Code(s): R06.02 - SHORTNESS OF BREATH (2) Edema Code(s): R60.9 - EDEMA, UNSPECIFIED Qualifiers: Edema type: localized Qualified Code(s): R60.0 - Localized edema (3) Diastolic CHF with preserved left ventricular function, NYHA class 2 Code(s): I50.30 - UNSPECIFIED DIASTOLIC (CONGESTIVE) HEART FAILURE (4) Thrombocythemia, essential Code(s): D47.3 - ESSENTIAL (HEMORRHAGIC) THROMBOCYTHEMIA (5) Hypothyroidism (acquired) Code(s): E03.9 - HYPOTHYROIDISM, UNSPECIFIED (6) Hyperparathyroidism Code(s): E21.3 - HYPERPARATHYROIDISM, UNSPECIFIED (7) Osteoporosis Code(s): M81.0 - AGE-RELATED OSTEOPOROSIS W/O CURRENT PATHOLOGICAL FRACTURE Qualifiers: Osteoporosis type: unspecified (8) Ulcer of left lower leg Code(s): L97.929 - NON-PRS CHRONIC ULC UNSP PRT OF L LOW LEG W UNSP SEVERITY Qualifiers: Non-pressure ulcer stage: limited to breakdown of skin Qualified Code(s): L97.921 - Non-pressure chronic ulcer of unspecified part of left lower leg limited to breakdown of skin (9) Hypertension Code(s): I10 - ESSENTIAL (PRIMARY) HYPERTENSION Qualifiers: Hypertension type: unspecified Qualified Code(s): I10 - Essential (primary ) hypertension (10) Cognitive dysfunction associated with depression Code(s): F06.8 - OTH MENTAL DISORDERS DUE TO KNOWN PHYSIOLOGICAL CONDITION; F32.9 - MAJOR DEPRESSIVE DISORDER, SINGLE EPISODE, UNSPECIFIED (11) Gait difficulty Code(s): R26.9 - UNSPECIFIED ABNORMALITIES OF GAIT AND MOBILITY
[2019-01-28] MEDS: COLLAGENASE CLOSTRIDIUM HIST. 30 GRAMS TUBE TP SCH ×2 (14:37→22:00)
[2019-01-28] MEDS ORDERED: FLU VACCINE QUAD 60 MCG/0.5 ML (MDV 19-20) IM ONE (16:30)
[2019-01-29] MEDS: LEVOTHYROXINE NA 100 MCG TABLET (FP) PO SCH (06:44)
[2019-01-29 07:47] LABS: HEMATOCRIT 31.4 % (32.4-45.2); HEMOGLOBIN 10.8 GM/dL (10.7-15.3); MCH 29.3 pg (25.7-33.7); MCHC 34.4 g/dl (32.0-36.0); MEAN PLT VOLUME 7.7 fl (7.5-11.1); PLATELET COUNT 763 K/MM3 (134-434); RBC 3.69 M/mm3 (3.60-5.2); RDW 17.8 % (11.6-15.6); WHITE BLOOD COUNT 8.6 K/mm3 (4.0-10.0)
[2019-01-29 08:04] LABS: BLOOD UREA NITROGEN 39.9 mg/dL (7-18); CALCIUM 10.1 mg/dL (8.5-10.1); CREATININE 0.7 mg/dL (0.55-1.3); POTASSIUM 3.8 mmol/L (3.5-5.1)
[2019-01-29 08:18] VITALS: PULSE 72
[2019-01-29] MEDS ORDERED: PT OWN MED DRAWER 7, Y5N ONE ×2 (10:44→11:25)
--- NOTE | 2019-01-29 11:01 | PN ---
Progress Note (short form) - Note Progress Note: Physical exam: Gen.: patient found lying in bed. Well appearing. Awake, alert. Lungs: clear to auscultation bilaterally down to the bases. Heart: regular rate and rhythm. S1, S2 heard. No murmurs gallops or rubs heard. Abdomen: soft, nontender, nondistended. Bowel sounds heard. Extremities: no peripheral edema noted. No bruising, swelling, erythema or warmth of extremities noted. neuro: patient A&O x3. Moving all four limbs spontaneously. CBC, BMP 01/29/19 06:35 01/29/19 06:35 Assessment and plan: The patient is an 83-year-old female with a past medical history of hypertension , hyperthyroidism, hyperparathyroidism and essential thrombocytosis who presented to the emergency department complaining of progressive shortness of breath over the past few weeks. The patient was admitted for treatment of acute CHF exacerbation. Hematology was consulted for assistance in the treatment of the patient's essential thrombocytosis. #Essential thrombocytosis -platelets today 924 -no overt evidence of thrombosis or hypercoagulability at this time -patient currently being treated with hydroxyurea 1 g PO BID -current home thrombocytosis regimen unclear. -Patient may need up titration of hydroxyurea to maintain normal platelet count.
[2019-01-29] MEDS: ASPIRIN COATED 81 MG TABLET.EC PO SCH (11:11)
[2019-01-29] MEDS: ENOXAPARIN NA (PORCINE) 40 MG/0.4 ML DISP.SYRIN SQ SCH (11:11)
[2019-01-29] MEDS: HYDROXYUREA 500 MG CAPSULE PO SCH (11:12)
[2019-01-29] MEDS: ESCITALOPRAM OXALATE 10 MG TABLET (FP) PO SCH (11:12)
[2019-01-29] MEDS: LISINOPRIL 10 MG TABLET (FP) PO SCH (11:12)
[2019-01-29] MEDS: NEBIVOLOL 10 MG TABLET (FP) PO SCH (11:12)
[2019-01-29] MEDS: MULTIVITAMINS (DAILY MVI) TABLET (FP) PO SCH (11:12)
[2019-01-29] MEDS: DOCUSATE SODIUM 100 MG CAPSULE (FP) PO SCH (11:14)
[2019-01-29] MEDS: COLLAGENASE CLOSTRIDIUM HIST. 30 GRAMS TUBE TP SCH (11:15)
--- NOTE | 2019-01-29 12:03 | DS ---
Physical Examination Vital Signs: Vital Signs Temperature 99.0 F 01/29/19 06:00 Pulse Rate 72 01/29/19 06:00 Respiratory Rate 20 01/29/19 06:00 Blood Pressure 152/76 01/29/19 06:00 O2 Sat by Pulse Oximetry (%) 95 01/28/19 21:00 Constitutional: Yes: Well Nourished, No Distress, Calm Eyes: Yes: Conjunctiva Clear HENT: Yes: WNL Neck: Yes: WNL Cardiovascular: Yes: Regular Rate and Rhythm Respiratory: Yes: WNL Gastrointestinal: Yes: Soft ...Rectal Exam: Yes: Deferred Musculoskeletal: Yes: Muscle Weakness Extremities: Yes: WNL Edema: No Integumentary: Yes: Other (LLE shallow sore) Wound/Incision: Yes: Clean/Dry Neurological: Yes: WNL, Unsteady Gait ...Motor Strength: WNL Psychiatric: Yes: WNL Labs: CBC, BMP 01/29/19 06:35 01/29/19 06:35 Discharge Summary Problems reviewed: Yes Reason For Visit: SOB,LIGHTHEADNESS Current Active Problems Cognitive dysfunction associated with depression (Acute) Diastolic CHF with preserved left ventricular function, NYHA class 2 (Acute) Edema (Acute) Gait difficulty (Acute) Hyperparathyroidism (Acute) Hypertension (Acute) Hypothyroidism (acquired) (Acute) Osteoporosis (Acute) Thrombocythemia, essential (Acute) Ulcer of left lower leg (Acute) s/p acute delirium (resolved) anemia Other Procedures: Pharm stress test Hospital Course: 83 YO F who had been c/o SOB and progressive weakness on and off over past month was admitted for general progression on said Sx; found to be in acute diastolic HF. She was Tx with IV diuretics, seen by Cardiology and adjusted cardiac meds. Echo showed NL LVF; stress test benign. Labs showed high BNP; PLT count elevated (not new); and dose of Hydrea increased. She was seen by Heme Onc who advised up titration as needed. Had episode of acute delirium. Noted high WBC but no evidence of infection. Vitals remained stable. She was seen by PT who felt she was a good candidate for rehab. She was seen at wound care for slowly healing trauma induced tonny of the LLE which did not appear to be infected. Same Topical tx was implemented. Health Concerns: improve mobility Plan of Treatment: Physical therapy & wound care Goals: regain independence. Ambulate and transfer with walker/cane Condition: Improved - Instructions Diet, Activity, Other Instructions: Low sodium soft Physical therapy check CBC; chemistry weekly Wound care (can be sent to [facility]). Disposition: CUSTODIAL FACILITY - Home Medications Comprehensive Discharge Medication List: Ambulatory Orders Cholecalciferol (Vitamin D3) [Vitamin D3 -] 1 tab PO DAILY 01/10/19 ASA - 162 mg PO DAILY 01/17/19 Alendronate Sodium [Fosamax] 1 tab PO WEEKLY #4 tablet 01/29/19 Collagenase Clostridium Hist. [Santyl -] 1 applic TP DAILY tube 01/29/19 Cyanocobalamin (Vitamin B-12) [B-12 Dots] 500 mcg PO DAILY #100 tablet 01/29/19 Docusate Sodium [Colace -] 100 mg PO DAILY capsule 01/29/19 Escitalopram Oxalate [Lexapro -] 10 mg PO DAILY tablet 01/29/19 Furosemide [Lasix] 20 mg PO DAILY #0 tab 01/29/19 Hydroxyurea [Hydrea 500Mg Capsule -] 1,000 mg PO TID #100 capsule 01/29/19 Levothyroxine [Synthroid -] 100 mcg PO DAILY@0700 tablet 01/29/19 Lisinopril [Prinivil] 10 mg PO BID tablet 01/29/19 Multivitamin [Multiple Vitamins] 1 each PO Q48H #100 tablet 01/29/19 Nebivolol [Bystolic -] 10 mg PO DAILY tab 01/29/19 Olanzapine [Zyprexa -] 2.5 mg PO HS PRN tablet 01/29/19
[2019-01-29 13:56] VITALS: BP 131/62; TEMP 98.7
== END 2019-01-29 15:05 | DRG 292 ==
LOC: JER 11:40 → JERBED 14:18 → J4W 17:47 → OBSVTOIN 01-24 12:56 → J5S 01-27 19:05
PROVIDERS: ADMIT Internal Medicine; ATTEND Internal Medicine
DX: I11.0 Hypertensive heart disease with heart failure (principal); L97.921 Non-pressure chronic ulcer of unspecified part of left lower leg limited to breakdown of skin; D47.1 Chronic myeloproliferative disease; I50.33 Acute on chronic diastolic (congestive) heart failure; E03.9 Hypothyroidism, unspecified; E78.5 Hyperlipidemia, unspecified; F41.8 Other specified anxiety disorders; E21.3 Hyperparathyroidism, unspecified; R26.9 Unspecified abnormalities of gait and mobility; D47.3 Essential (hemorrhagic) thrombocythemia; R60.0 Localized edema; M81.0 Age-related osteoporosis without current pathological fracture; R53.1 Weakness; E87.70 Fluid overload, unspecified; R62.7 Adult failure to thrive; Z68.23 Body mass index [BMI] 23.0-23.9, adult; K59.09 Other constipation; R53.83 Other fatigue; E87.6 Hypokalemia; D72.823 Leukemoid reaction; R41.0 Disorientation, unspecified; Z91.19 Patient's noncompliance with other medical treatment and regimen
CPT/HCPCS: 36415; 70450-TC; 71045-TC-FY; 78452-TC; 80048; 80053; 81003; 82607; 82746; 83735; 83880; 84443; 84484; 85025; 85027; 85610; 85651; 86850; 86900; 86901; 93005; 93010; 93017; 93306-TC; 93971-TC; 97116-GP; 97161-GP; 99284-25; A9502; G0008; G0378; J2785; J8999; Q2036

== ENCOUNTER 2019-02-10 17:50 | Inpatient (IN) | payer OTHER, MEDICARE ==
--- NOTE | 2019-02-10 19:02 | PDOC ---
History of Present Illness - General Stated Complaint: S.O.B./VOMITING Time Seen by Provider: 02/10/19 19:02 History Source: Patient Exam Limitations: No Limitations - History of Present Illness Initial Comments: 02/10/19 19:02 Gillian Duvall is a 83yF w PMHx diastolic HF and essential thyrombocytopenia presenting from [facility] with AMS and SOB. Pt is lethargic and a poor historian. Per son, pt had fever, SOB, intermittent dry cough, and multiple episodes of dark vomiting today. Also noted poor appetite for past 5d, progressive lethargy and worsening responsiveness. Pt was recently discharged from [facility] on 01/29 for 1mo progressive weakness attributed to acute diastolic HF. Noted slowly healing trauma induced LLE wound not infected. Past History - Past Medical History Allergies/Adverse Reactions: Allergies Allergy/AdvReac Type Severity Reaction Status Date / Time nitrofurantoin Allergy Verified 02/10/19 19:16 [From Macrobid] nitrofurantoin Allergy Verified 02/10/19 19:16 macrocrystalline [From Macrobid] Penicillins Allergy Verified 02/10/19 19:16 Home Medications: Ambulatory Orders Cholecalciferol (Vitamin D3) [Vitamin D3 -] 1 tab PO DAILY 01/10/19 ASA - 162 mg PO DAILY 01/17/19 Alendronate Sodium [Fosamax] 1 tab PO WEEKLY #4 tablet 01/29/19 Cyanocobalamin (Vitamin B-12) [B-12 Dots] 500 mcg PO DAILY #100 tablet 01/29/19 Docusate Sodium [Colace -] 100 mg PO DAILY capsule 01/29/19 Escitalopram Oxalate [Lexapro -] 10 mg PO DAILY tablet 01/29/19 Hydroxyurea [Hydrea 500Mg Capsule -] 1,000 mg PO TID #100 capsule 01/29/19 Levothyroxine [Synthroid -] 100 mcg PO DAILY@0700 tablet 01/29/19 Lisinopril [Prinivil] 10 mg PO BID tablet 01/29/19 Multivitamin [Multiple Vitamins] 1 each PO Q48H #100 tablet 01/29/19 Nebivolol [Bystolic -] 10 mg PO DAILY tab 01/29/19 Olanzapine [Zyprexa -] 2.5 mg PO HS PRN tablet 01/29/19 Magnesium Hydroxide [Milk of Magnesia] 400 mg PO PRN 02/10/19 Ondansetron [Zofran -] 4 mg PO Q8H PRN 02/10/19 Polyethylene Glycol 3350 17 gm PO DAILY 02/10/19 Anemia: Yes (Throbocytopenia) Asthma: No Cancer: No Cardiac Disorders: No CVA: No COPD: No CHF: Yes (diastolic preserved LVF, systolic CHF) Diabetes: No HTN: Yes Hypercholesterolemia: Yes Psychiatric Problems: (depression w/ cognitive dysfunction) Thyroid Disease: Yes (s/p right thyroid lobectomy) Other medical history: ulcer of lower leg, osteoporosis - Surgical History Abdominal Surgery: Yes (abd hernia) - Immunization History Immunization Up to Date: No - Psycho Social/Smoking Cessation Hx Smoking Status: No Smoking History: Never smoked Have you smoked in the past 12 months: No Number of Cigarettes Smoked Daily: 0 Hx Alcohol Use: No Drug/Substance Use Hx: No Substance Use Type: None Review of Systems - Review of Systems Able to Perform ROS?: No (cannot speak) *Physical Exam - Vital Signs Last Vital Signs Temp Pulse Resp BP Pulse Ox 101.1 F H 81 20 189/87 H 96 02/10/19 18:17 02/10/19 18:17 02/10/19 18:17 02/10/19 18:17 02/10/19 18:17 - Physical Exam General Appearance: Yes: Nourished, Appropriately Dressed, Moderate Distress HEENT: positive: Normal Voice. negative: Scleral Icterus (R), Scleral Icterus ( L), Nasal Congestion, Rhinorrhea Respiratory/Chest: positive: Other (coarse breath sounds paz, on 2L NC). negative: Chest Tender, Crackles, Rhonchi, Stridor, Wheezing Cardiovascular: positive: Regular Rhythm, Regular Rate, S1, S2. negative: Murmur Vascular Pulses: Dorsalis-Pedis (R): 2+, Doralis-Pedis (L): 2+ Gastrointestinal/Abdominal: positive: Normal Bowel Sounds, Flat, Soft. negative : Tender, Organomegaly Extremity: positive: Swelling (1+ pitting edema to knees bilaterally) Integumentary: positive: Dry, Warm, Other (superificial abrasion LLE anterior ankle, not purulent/infected) Neurologic: negative: Fully Oriented (AOx1), Alert (sleepy, gives 1-2 words responses) ED Treatment Course - LABORATORY CBC & Chemistry Diagram: 02/10/19 18:57 02/10/19 18:57 Medical Decision Making - Medical Decision Making 02/10/19 19:23 Sepsis workup (temp 101.1, O2 96 on 2L NC) Given 1L NS run slow (hx HF), tylenol for fever, vanc/meropenem for sepsis ( allergy meropenem) CXR shows paz infiltrates no focal consolidation EKG shows NSR, LVH, HR 68, QTc 397, no ST changes WBC 0.3, neg trop, lactate 0.6, plt 92, Hgb 8.5, no infection on UA CT Head shows no acute bleed/mass effect, chronic ischemic changes CT Chest shows paz infiltrates/atelectasis, small pleural effusions CT A/P shows no SBO/abscesses/biliary dilation, mild free fluid, paz renal cysts --- Ada Eloina is a 83yF w PMHx diastolic HF and essential thyrombocytopenia presenting from [facility] with 1d lethargy, SOB, fever concerning for sepsis d/t pneumonia (cough, coarse breath sounds, paz infiltrates). No evidence of ACS (neg trop, EKG) or UTI. Low concern for CHF ( no LE swelling). Labs significant for low WBC 0.3 w lymphocyte shift, normal lactate 0.6. On 2L NC. CT Head shows no acute bleed/infarct/lesions. CT Chest shows paz infiltrates/ atelectasis. CT A/P shows no acute processes Given 1L NS run slow (did not give weight based fluid dosing to avoid HF exacerbation), tylenol for fever, vanc/meropenem for sepsis (allergy meropenem) . Repeat BP 130/68, temp 98.[address] Campbell med/surg for sepsis d/t pneumonia, AMS - advised give 1u pRBC, son (power of securities attorney) signed informed consent Discharge - Discharge Information Problems reviewed: Yes Clinical Impression/Diagnosis: Sepsis Qualifiers: Sepsis type: sepsis due to unspecified organism Sepsis acute organ dysfunction status: without acute organ dysfunction Qualified Code(s): A41.9 - Sepsis, unspecified organism Altered mental status Qualifiers: Altered mental status type: disorientation Qualified Code(s): R41.0 - Disorientation, unspecified Pneumonia Qualifiers: Pneumonia type: due to unspecified organism Laterality: bilateral Lung location : unspecified part of lung Qualified Code(s): J18.9 - Pneumonia, unspecified organism Condition: Good - Follow up/Referral - Patient Discharge Instructions - Post Discharge Activity
[2019-02-10] MEDS ORDERED: SODIUM CHLORIDE 1,000 ML IV STA (19:13)
[2019-02-10] MEDS ORDERED: ACETAMINOPHEN 1000 MG/100 ML VIAL (NON FORMULARY) IVPB ONE (19:13)
[2019-02-10 19:14] LABS: HEMATOCRIT 24.3 % (32.4-45.2); VENOUS PC02 35.8 mmHg (38-52); VENOUS PH 7.47 (7.31-7.41); VENOUS PO2 63.7 mmHg (28-48)
[2019-02-10] MEDS ORDERED: ACETAMINOPHEN INJECTION 100 ML IVPB ONE (19:14)
[2019-02-10] MEDS ORDERED: VANCOMYCIN 1 GM in D5W (PRE-DOCKED) 1,000 MG/250 ML IVPB ONE (19:20)
[2019-02-10] MEDS ORDERED: MEROPENEM 1 GM in DEXTROSE 5%-WATER 100 ML IVPB ONE (19:20)
[2019-02-10 19:28] LABS: BASO % 0.4 % (0-2.0); EOS % 1.1 % (0-4.5); HEMOGLOBIN 8.5 GM/dL (10.7-15.3); LYMPH % 65.6 % (8-40); MCH 29.8 pg (25.7-33.7); MCHC 34.8 g/dl (32.0-36.0); MEAN CELL VOLUME 85.6 fl (80-96); MEAN PLT VOLUME 7.5 fl (7.5-11.1); MONO % 1.5 % (3.8-10.2); NEUT % 31.4 % (42.8-82.8); PLATELET COUNT 92 K/MM3 (134-434); RBC 2.84 M/mm3 (3.60-5.2); RDW 16.9 % (11.6-15.6)
[2019-02-10 19:32] LABS: WHITE BLOOD COUNT 0.3 K/mm3 (4.0-10.0)
[2019-02-10] MEDS ORDERED: ONDANSETRON 4 MG/2 ML VIAL IVPUSH ONE (19:34)
[2019-02-10] MEDS ORDERED: ONDANSETRON 4 MG/2 ML VIAL ONE (19:43)
[2019-02-10 19:44] LABS: ACTIVATED PTT 28.3 SECONDS (25.2-36.5); ALBUMIN 2.8 g/dl (3.4-5.0); ALK PHOS 58 U/L (45-117); ANION GAP 7 MMOL/L (8-16); BLOOD UREA NITROGEN 22.2 mg/dL (7-18); CALCIUM 9.1 mg/dL (8.5-10.1); CHLORIDE 101 mmol/L (98-107); CO2 26 mmol/L (21-32); CREATININE 0.6 mg/dL (0.55-1.3); GLUCOSE,RANDOM 117 mg/dL (74-106); POTASSIUM 3.6 mmol/L (3.5-5.1); SGOT/AST 18 U/L (15-37); SGPT/ALT 17 U/L (13-61); SODIUM 134 mmol/L (136-145)
[2019-02-10 19:49] LABS: INR 1.3 (0.83-1.09); PROTHROMBIN TIME (PATIENT) 15.4 SEC (9.7-13.0)
[2019-02-10] MEDS ORDERED: VANCOMYCIN 1 GRAM (PRE-DOCKED) 1,000 MG/250 ML BAG IVPB ONE (20:06)
[2019-02-10 20:39] LABS: EPI CELLS 17.7 /HPF (0-5/HPF); HYALINE CASTS 61 /lpf (0-8); PH,URINE 5.5 (5.0-8.0); URINE APPEARANCE CLOUDY; URINE BILIRUBIN 1+ (NEGATIVE); URINE COLOR DK YELLOW; URINE GLUCOSE (UA) NEGATIVE (NEGATIVE); URINE KETONE 1+ (NEGATIVE); URINE LEUK ESTERASE 1+ (NEGATIVE); URINE NITRITE NEGATIVE (NEGATIVE); URINE PROTEIN 2+ (NEGATIVE); URINE RBC 2 /hpf (0-4); URINE WBC 14 /hpf (0-5)
[2019-02-10 21:14] LABS: ANISOCYTOSIS 1+; PLATELET ESTIMATE DECREASED
--- NOTE | 2019-02-10 21:23 | PDOC ---
Documentation entered by Daniel Mulligan SCRIBE, acting as scribe for Ely Marinelli MD. Ely Marinelli MD: This documentation has been prepared by the Isaak mccarty Nirvannie, SCRIBE, under my direction and personally reviewed by me in its entirety. I confirm that the documentation accurately reflects all work, treatment, procedures, and medical decision making performed by me. Attending Attestation - Resident Resident Name: JesusitaBen - ED Attending Attestation I have performed the following: I have examined & evaluated the patient, The case was reviewed & discussed with the resident, I agree w/resident's findings & plan - HPI HPI: 02/10/19 20:37 Ms. Duvall is an 83-year-old female who presents emergency department from custodial due to shortness of breath and alterations in mental status. Patient is status post recent admission to the hospital, where she was treated for congestive heart failure and had an episode of delirium. According to the family they have noticed changes in her mental status over the past 4 to 5 days. They noticed precipitous decline over the last 2 days. Where she typically had been able to answer questions, and interact with the family 9even if slightly confused), currently the patient is unable to speak with her family members. She was noted to have a fever She was noted to vomit She is currently unable to provide any historical data Allergies: nitrofurantoin, PCN Primary Care Physician: Dr. Campbell 02/10/19 21:18 - Physicial Exam PE: 02/10/19 21:21 GENERAL: The patient is repeatedly saying "mama", otherwise unresponsive to examiner ENT: Dry dark fluid at patient's mouth, dry mucous membrane NECK: Normal range of motion, supple, no nuchal rigidity LUNGS: Coarse, rhonchorous breath sounds bilaterally, no wheezing noted HEART:Regular rate and rhythm, normal S1 and S2 without murmur, rub or gallop. ABDOMEN: Soft, nontender EXTREMITIES: Normal range of motion, no edema. NEUROLOGICAL: Cranial nerves II through XII grossly intact. Normal speech. No focal neurological deficits. SKIN: Venous stasis changes noted, 2 small superficial abrasions of the left lower extremity, no cellulitis - Critical Care Time Total Critical Care Time: 60 Critical Care Statement: The care of this patient involved high complexity decision making to prevent further life threatening deterioration of the patient 's condition and/or to evaluate & treat vital organ system(s) failure or risk of failure. - Medical Decision Making 02/10/19 20:27 EKG: Normal sinus rhythm, rate of 60 bpm, axis is normal, intervals are normal, no ST elevation or depression, LVH noted Laboratory Tests 01/29/19 02/10/19 02/10/19 06:35 18:57 18:57 WBC 8.6 0.3 L* Hgb 10.8 8.5 L Hct 31.4 L 24.3 L D Plt Count 763 H 92 L D INR PTT (Actin FS) VBG pH POC VBG pCO2 POC VBG pO2 BUN 22.2 H Creatinine 0.6 Creatine Kinase CK-MB (CK-2) < 1.0 Troponin I 02/10/19 02/10/19 02/10/19 18:57 18:57 18:57 WBC Hgb Hct Plt Count INR 1.30 H PTT (Actin FS) 28.3 VBG pH 7.47 H POC VBG pCO2 35.8 L POC VBG pO2 63.7 H BUN Creatinine Creatine Kinase 16 L CK-MB (CK-2) Troponin I < 0.02 02/10/19 20:29 UA pending CXR Patient given vancomycin as well as meropenem Chest x-ray is difficult to interpret as patient is rotated 02/10/19 21:23 We will plan to do CT of the head, chest, abdomen and pelvis. We will plan to admit. CT head - No acute intracranial pathology CT chest - Right lower lobe atalectasis CT abd and pelvis - small amount of ascites 02/13/19 11:00 Will admit Pt is septic Source? - UTI??? penumonia?? Pt also pancytopenic, ? due to hydrea??? This patient is critically ill
--- NOTE | 2019-02-11 10:32 | EKG ---
Test Reason : Blood Pressure : / mmHG Vent. Rate : 068 BPM Atrial Rate : 068 BPM P-R Int : 154 ms QRS Dur : 094 ms QT Int : 374 ms P-R-T Axes : 022 -13 012 degrees QTc Int : 397 ms NORMAL SINUS RHYTHM MINIMAL VOLTAGE CRITERIA FOR LVH, MAY BE NORMAL VARIANT BORDERLINE ECG WHEN COMPARED WITH ECG OF 23-JAN-2019 13:33, NO SIGNIFICANT CHANGE WAS FOUND Confirmed by MD SELMA, STEPH ([id number]) on 02/11/2019 10:32:12 AM Referred By: Confirmed By:STEPH HAHN MD
--- NOTE | 2019-02-11 10:35 | PN ---
Progress Note (short form) - Note Progress Note: ID consult dictated imp/reccd 83 yo female with PMH of diastolic heart failure, essential thrombocytosis, mild dementia recent admission for diastolic heart failure noted to have rising plateelt count and hydoxyurea has been increased over the last month now with 5 day history of lethargy and weakness at the ID fever with dry cough and vomiting on day of admission yesterday per son (from ED note) penicillin allergy given vancomycin and meropenem in the ED fever to 101 in ED febrile neutropenia- cannot r/o pneumonia or bacteremia from chronic skin ulcer RLE, or uti- +UA penicillin allergy suspect neutropenia due to hydroxyurea- would hold until patient is seen by oncology- ?neupogen f/u cultures continue vancomycin/meropenem urine for legionella and pneumococcal antigen d/w dr trujillo Problem List - Problems (1) Neutropenic sepsis Code(s): A41.9 - SEPSIS, UNSPECIFIED ORGANISM; D70.9 - NEUTROPENIA, UNSPECIFIED (2) Pneumonia Code(s): J18.9 - PNEUMONIA, UNSPECIFIED ORGANISM Qualifiers: Pneumonia type: due to unspecified organism Laterality: bilateral Lung location: unspecified part of lung Qualified Code(s): J18.9 - Pneumonia, unspecified organism (3) UTI (urinary tract infection) Code(s): N39.0 - URINARY TRACT INFECTION, SITE NOT SPECIFIED (4) Penicillin allergy Code(s): Z88.0 - ALLERGY STATUS TO PENICILLIN (5) Essential thrombocytosis Code(s): D47.3 - ESSENTIAL (HEMORRHAGIC) THROMBOCYTHEMIA
--- NOTE | 2019-02-11 10:37 | HP ---
Admitting History and Physical - Primary Care Physician PCP: Gregor Campbell - Admission Chief Complaint: weakness & confusion History of Present Illness: 83 YOF with Hx of ASHD; Htn; Thrombocytosis (essential); cogn dysf; hypothyroidism/Hypoparathyroidism, arrives from [facility] (where she has been for about 2 weeks for rehab) for progress weakness & failing to thrive. She was sent to SNF from [facility] where she was admitted 3 weeks ago for weakness & diastolic failure. She was stabilized but remained weak and was sent for short term rehab to [facility]. Relatives contacted me yesterday stating that she had gotten weak, c/o various aches and pains, and BP was high. She was then brought to ER and was weak & confused. History Source: Family Member, Medical Record Limitations to Obtaining History: Physical Impairment - Past Medical History MEDICINE TECHNOLOGIST: Yes: Dementia Cardiovascular: Yes: CHF, HTN ...: No Heme/Onc: Yes: Myeloproliferative Synd Musculoskeletal: Yes: Osteoarthritis, Other (chronic gait dysfunction) Endocrine: Yes: Hypothyroidism, Other (hyperparathyroidism) Dermatology: Yes: Other (slow healing sore on the LLE) - Past Surgical History Past Surgical History: Yes: Hysterectomy Additional Past Surgical History: s/p partial thyroidectomy in her youth - Advance Directives Advance Directives: Yes: DNR - Smoking History Smoking history: Former smoker Have you smoked in the past 12 months: No Aproximately how many cigarettes per day: 0 If you are a former smoker, when did you quit?: quit over 40 yrs ago - Alcohol/Substance Use Hx Alcohol Use: No History of Substance Use: reports: None - Social History Usual Living Arrangement: Yes: With Spouse Do you think of yourself as: Straight/Heterosexual ADL: Family Assistance 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 History of Recent Travel: No Home Medications - Allergies Allergies/Adverse Reactions: Allergies Allergy/AdvReac Type Severity Reaction Status Date / Time nitrofurantoin Allergy Verified 02/10/19 19:16 [From Macrobid] nitrofurantoin Allergy Verified 02/10/19 19:16 macrocrystalline [From Macrobid] Penicillins Allergy Verified 02/10/19 19:16 - Home Medications Home Medications: Ambulatory Orders Cholecalciferol (Vitamin D3) [Vitamin D3 -] 1 tab PO DAILY 01/10/19 ASA - 162 mg PO DAILY 01/17/19 Alendronate Sodium [Fosamax] 1 tab PO WEEKLY #4 tablet 01/29/19 Cyanocobalamin (Vitamin B-12) [B-12 Dots] 500 mcg PO DAILY #100 tablet 01/29/19 Docusate Sodium [Colace -] 100 mg PO DAILY capsule 01/29/19 Escitalopram Oxalate [Lexapro -] 10 mg PO DAILY tablet 01/29/19 Hydroxyurea [Hydrea 500Mg Capsule -] 1,000 mg PO TID #100 capsule 01/29/19 Levothyroxine [Synthroid -] 100 mcg PO DAILY@0700 tablet 01/29/19 Lisinopril [Prinivil] 10 mg PO BID tablet 01/29/19 Multivitamin [Multiple Vitamins] 1 each PO Q48H #100 tablet 01/29/19 Nebivolol [Bystolic -] 10 mg PO DAILY tab 01/29/19 Olanzapine [Zyprexa -] 2.5 mg PO HS PRN tablet 01/29/19 Magnesium Hydroxide [Milk of Magnesia] 400 mg PO PRN 02/10/19 Ondansetron [Zofran -] 4 mg PO Q8H PRN 02/10/19 Polyethylene Glycol 3350 17 gm PO DAILY 02/10/19 Family Medical History Family History: Unremarkable Review of Systems Findings/Remarks: unable to obtain 2nd state of confusion; she denies any aches or pains at this time Physical Examination Vital Signs: Vital Signs Temperature 98.3 F 02/10/19 23:03 Pulse Rate 55 L 02/11/19 01:03 Respiratory Rate 18 02/10/19 23:42 Blood Pressure 132/62 02/11/19 01:03 O2 Sat by Pulse Oximetry (%) 95 02/11/19 01:03 Findings/Remarks: skin--small area of denuded skin on the anter-lat LLE above ankle head--NC eyes--EOMI; anicteric oral--no gross mucosal lesions; tongue atrophy neck--no masses, nodes lungs--bilat distant sounds; no wheezing heart--RR, no M breasts--no palp masses appreciated abd--soft, BS quiet, NT, ND back--no nia tenderness ext--no CCE; degen changes;no atrophy; pedal pulses palpable neuro--asthenic; but awake; verbal but a bit confused; follows some commands; good eye contact; able to move all Extrems on command. Laboratory Tests 02/10/19 02/10/19 02/10/19 18:57 18:57 18:57 WBC 0.3 L* RBC 2.84 L Hgb 8.5 L Hct 24.3 L D MCV 85.6 MCH 29.8 MCHC 34.8 RDW 16.9 H Plt Count 92 L D MPV 7.5 Absolute Neuts (auto) 0.1 L Neutrophils % 31.4 L D Neutrophils % (Manual) 26.3 L Band Neutrophils % 0.0 Lymphocytes % 65.6 H D Lymphocytes % (Manual) 71.7 H Monocytes % 1.5 L D Monocytes % (Manual) 1 L Eosinophils % 1.1 Eosinophils % (Manual) 0.0 Basophils % 0.4 Basophils % (Manual) 1.0 Myelocytes % (Man) 0 Promyelocytes % (Man) 0 Blast Cells % (Manual) 0 Nucleated RBC % 1 H Metamyelocytes 0 Platelet Estimate Decreased Anisocytosis 1+ Schistocytes 1+ PT with INR INR PTT (Actin FS) VBG pH POC VBG pCO2 POC VBG pO2 VBG HCO3 VBG O2 Sat (Korin) VBG Base Excess Sodium 134 L Potassium 3.6 Chloride 101 Carbon Dioxide 26 Anion Gap 7 L BUN 22.2 H Creatinine 0.6 Est GFR (CKD-EPI)AfAm 96.33 Est GFR (CKD-EPI)NonAf 83.11 Random Glucose 117 H Lactic Acid Calcium 9.1 Total Bilirubin 1.0 AST 18 ALT 17 Alkaline Phosphatase 58 Creatine Kinase 16 L CK-MB (CK-2) < 1.0 Troponin I < 0.02 Total Protein 6.0 L Albumin 2.8 L Urine Color Urine Appearance Urine pH Ur Specific Tarzan Urine Protein Urine Glucose (UA) Urine Ketones Urine Blood Urine Nitrite Urine Bilirubin Urine Urobilinogen Ur Leukocyte Esterase Urine WBC (Auto) Urine RBC (Auto) Urine Casts (Auto) U Pathogenic Cast Auto U Epithel Cells (Auto) U Sm Round Cell (Auto) Urine Bacteria (Auto) Blood Type Antibody Screen Crossmatch 02/10/19 02/10/19 02/10/19 18:57 18:57 18:57 WBC RBC Hgb Hct MCV MCH MCHC RDW Plt Count MPV Absolute Neuts (auto) Neutrophils % Neutrophils % (Manual) Band Neutrophils % Lymphocytes % Lymphocytes % (Manual) Monocytes % Monocytes % (Manual) Eosinophils % Eosinophils % (Manual) Basophils % Basophils % (Manual) Myelocytes % (Man) Promyelocytes % (Man) Blast Cells % (Manual) Nucleated RBC % Metamyelocytes Platelet Estimate Anisocytosis Schistocytes PT with INR 15.40 H INR 1.30 H PTT (Actin FS) 28.3 VBG pH 7.47 H POC VBG pCO2 35.8 L POC VBG pO2 63.7 H VBG HCO3 25.7 VBG O2 Sat (Korin) 93.0 H VBG Base Excess 2.5 H Sodium Potassium Chloride Carbon Dioxide Anion Gap BUN Creatinine Est GFR (CKD-EPI)AfAm Est GFR (CKD-EPI)NonAf Random Glucose Lactic Acid 0.6 Calcium Total Bilirubin AST ALT Alkaline Phosphatase Creatine Kinase CK-MB (CK-2) Troponin I Total Protein Albumin Urine Color Urine Appearance Urine pH Ur Specific Tarzan Urine Protein Urine Glucose (UA) Urine Ketones Urine Blood Urine Nitrite Urine Bilirubin Urine Urobilinogen Ur Leukocyte Esterase Urine WBC (Auto) Urine RBC (Auto) Urine Casts (Auto) U Pathogenic Cast Auto U Epithel Cells (Auto) U Sm Round Cell (Auto) Urine Bacteria (Auto) Blood Type Antibody Screen Crossmatch 02/10/19 02/10/19 02/10/19 20:30 22:30 23:45 WBC RBC Hgb Hct MCV MCH MCHC RDW Plt Count MPV Absolute Neuts (auto) Neutrophils % Neutrophils % (Manual) Band Neutrophils % Lymphocytes % Lymphocytes % (Manual) Monocytes % Monocytes % (Manual) Eosinophils % Eosinophils % (Manual) Basophils % Basophils % (Manual) Myelocytes % (Man) Promyelocytes % (Man) Blast Cells % (Manual) Nucleated RBC % Metamyelocytes Platelet Estimate Anisocytosis Schistocytes PT with INR INR PTT (Actin FS) VBG pH POC VBG pCO2 POC VBG pO2 VBG HCO3 VBG O2 Sat (Korin) VBG Base Excess Sodium Potassium Chloride Carbon Dioxide Anion Gap BUN Creatinine Est GFR (CKD-EPI)AfAm Est GFR (CKD-EPI)NonAf Random Glucose Lactic Acid 0.5 Calcium Total Bilirubin AST ALT Alkaline Phosphatase Creatine Kinase CK-MB (CK-2) Troponin I Total Protein Albumin Urine Color Dk yellow Urine Appearance Cloudy Urine pH 5.5 D Ur Specific Tarzan 1.026 Urine Protein 2+ H Urine Glucose (UA) Negative Urine Ketones 1+ H Urine Blood Negative Urine Nitrite Negative Urine Bilirubin 1+ H Urine Urobilinogen 1.0 Ur Leukocyte Esterase 1+ H Urine WBC (Auto) 14 Urine RBC (Auto) 2 Urine Casts (Auto) 61 U Pathogenic Cast Auto Positive U Epithel Cells (Auto) 17.7 U Sm Round Cell (Auto) Negative Urine Bacteria (Auto) 12.0 Blood Type O NEGATIVE Antibody Screen Negative Crossmatch See Detail Labs: CBC, BMP 02/10/19 18:57 02/10/19 18:57 Imaging - Results Chest X-ray: Report Reviewed Cat Scan: Report Reviewed EKG: Report Reviewed Assessment/Plan Summ > fever--now resolved post IV Abs; with pancytopenia; together with pyuria and possible PNA: PLAN: IV Abs > Pancytopenia--all cell lines; could be 2nd Hydroxyurea effect (vs sepsis/ infection) PLAN: stop Hydrea; heme consult (need for neupagen?) follw counts. > bacturia--possible UTI; Abs given > abnl imaging--chest (CXR & CT) to suggest either atelectasis or PNA. PLan: ID eval; Abs > Hypoxia--on admission; now resolved; is sat well over 95%; could be 2nd hypovent and PNA > anemia--Hgb at 8.5%, likely 2nd marrow suppression 2nd Hydrea and/or state of infection; doubt GI bleed or hemolysis. PLAN: check Hapto; LDH; retic. 1 U of PC given. > Hypertensive heart dz--has been stable; but ran high BPs in recent days; no evidence of CHF; BP okay today > Hypothyroidism--check TSH > hyperparathyroidism--longstanding with mild Calcium elevation > gait dysf--chronic; had been in SNF for rehab > fail thrive--not new, but has accelerated since she was sent to SNF. > dementia--affecting mainly ST memory domain; she is able to follow commands;, recognize people, and names; could be made worse by state of acute illness. ~~~~~~~~~~~~~~~~~~~~~~ Dr Campbell
[2019-02-11 10:41] LABS: BASO % 0.3 % (0-2.0); EOS % 0.7 % (0-4.5); HEMATOCRIT 31.1 % (32.4-45.2); HEMOGLOBIN 10.5 GM/dL (10.7-15.3); MCH 29.2 pg (25.7-33.7); MCHC 33.7 g/dl (32.0-36.0); MEAN CELL VOLUME 86.7 fl (80-96); MEAN PLT VOLUME 7.5 fl (7.5-11.1); MONO % 0.3 % (3.8-10.2); NEUT % 21.7 % (42.8-82.8); PLATELET COUNT 84 K/MM3 (134-434); RBC 3.58 M/mm3 (3.60-5.2); RDW 16.7 % (11.6-15.6)
[2019-02-11] MEDS: DEXTROSE 5%-0.45% SALINE 1,000 ML IV SCH (10:44)
[2019-02-11] MEDS: PANTOPRAZOLE SODIUM 40 MG VIAL IVPB SCH (10:46)
[2019-02-11 10:48] LABS: WHITE BLOOD COUNT 0.5 K/mm3 (4.0-10.0)
[2019-02-11 11:12] LABS: ALBUMIN 2.7 g/dl (3.4-5.0); BILIRUBIN,TOTAL 1.6 mg/dL (0.2-1); BLOOD UREA NITROGEN 24.1 mg/dL (7-18); CALCIUM 9.2 mg/dL (8.5-10.1); CREATININE 0.7 mg/dL (0.55-1.3); POTASSIUM 3.7 mmol/L (3.5-5.1)
[2019-02-11] MEDS ORDERED: MEROPENEM 1 GM VIAL (RESTRICTED TO ID) IVPB ONE ×2 (11:48→17:10)
[2019-02-11] MEDS ORDERED: DEXTROSE 5%-WATER 100 ML IVPB ONE ×2 (11:48→17:10)
[2019-02-11 11:49] LABS: MACROCYTOSIS 0; PLATELET ESTIMATE DECREASED
[2019-02-11] MEDS: MEROPENEM 1 GM in DEXTROSE 5%-WATER 100 ML IVPB SCH ×2 (13:04→17:39)
[2019-02-11 13:05] LABS: RETICULOCYTES 0.82 % (0.5-1.5)
--- NOTE | 2019-02-11 13:21 | CONS ---
DATE OF CONSULTATION: DATE OF DICTATION: 02/11/2019 REQUESTED BY: Gregor Campbell MD This [facility] 83[facility] was recently in the hospital from January 23 to January 29 for diastolic heart failure. She has a history as well of essential thrombocytosis and mild dementia. She was noted to have an elevated platelet count and her Hydrea dose has been increased over the last 1 month. She now presents with a 5-day history of lethargy and weakness at the long-term, fever with dry cough and vomiting on the day of admission yesterday, per son. She has a known PENICILLIN allergy. She was noted to have a white count of 300 in the ER and her ANC was 100, and she was noted to have a fever of 101.1. Given her symptoms, she had a chest x-ray that was read as normal. She underwent imaging of her chest, abdomen and pelvis. The preliminary read from the [facility] service is notable for bilateral atelectasis versus infiltrate, small pleural effusions, nodular apical scarring. The abdomen and pelvis were noted for no bowel obstruction or abscess, mild free fluid. She had no biliary dilatation. She received a unit of blood overnight as well. She is currently resting comfortably in bed and she is afebrile. I am asked to see her for further management of her fever and antibiotics. Her past medical history is notable for COPD, diastolic heart failure, hypertension, osteoarthritis, hypothyroidism, hyperlipidemia, diastolic heart failure, essential thrombocytosis, hyperparathyroidism, depression, and she has had a chronic non-healing, venous stasis dermatitis of her left lower extremity. She is allergic to NITROFURANTOIN as well as PENICILLIN. Her surgical history is notable for hysterectomy and partial thyroidectomy. SOCIAL HISTORY: She is a former smoker. No history of substance use. She used to live with her spouse and is currently at the long-term. Her medication list from the long-term includes B12, Lexapro, Synthroid, multivitamins, vitamin D3, aspirin, alendronate weekly, hydroxyurea, Colace, Tylenol, lisinopril, Bystolic, milk of magnesia, MiraLax, Zyprexa, and Zofran as needed. Her family history is not available. REVIEW OF SYSTEMS: She has no complaints. She is awake and conversant. She thinks she is at home. She denies any pain. She is able to follow simple commands and was able to turn in the bed for me. PHYSICAL EXAMINATION: Vital Signs: Current temperature is 98.3, T-max was 101.3, pulse of 55, blood pressure 136/62, she weighs 50 kg. HEENT: Normocephalic. Her eyes are anicteric. She is able to open her mouth and follow simple commands. She has no thrush. Neck: Supple. She has no meningeal signs. Lungs: Diminished breath sounds at the bases. Heart: Regular rate and rhythm. Abdomen: Soft, nontender. She has no rebound or guarding. She has no right upper quadrant pain. Extremities, Skin: Notable for these venous stasis changes and some skin abrasions of the left lower extremity. She has no other skin breakdown. Rectal: She has no perirectal pain. Her labs are notable for admission white count was 300, white count this morning is 500, hemoglobin is 10.5 after transfusion, platelets are 84,000, ANC is 100. Her INR is 1.3. From admission, her BUN 22, creatinine 0.6, with normal LFTs and normal lactic acid. Urinalysis with 1+ leukocyte esterase with 14 white cells. Urine and blood cultures are pending. Imaging is as previously stated. In summary, this is an 83-year-old woman with febrile neutropenia. Cannot rule out pneumonia or bacteremia from the leg ulcer, or UTI, given the positive UA. PENICILLIN allergy noted. I suspect neutropenia due to the hydroxyurea. Would hold until the patient is seen by Oncology. Would consider Neupogen, but await oncology evaluation. Follow up her cultures. Would continue vancomycin and meropenem to cover both for aspiration pneumonia, given the vomiting, as well as urinary tract infection. Vancomycin will cover for skin related sources of sepsis. Would send a urine for Legionella and pneumococcal antigen. Case was discussed at length with Dr. Campbell. CHARLES HEALY M.D. [id number]
[2019-02-11] MEDS: ACETAMINOPHEN 1000 MG/100 ML VIAL (NON FORMULARY) IVPB PRN (15:43)
[2019-02-11] MEDS: LYTES/YERBA SANTA 240 ML BOTTLE MM SCH ×3 (17:35→23:20)
[2019-02-11] MEDS: VANCOMYCIN 1 GRAM (PRE-DOCKED) 1,000 MG/250 ML BAG IVPB SCH (21:27)
[2019-02-11] MEDS: MUPIROCIN 2% TOPICAL OINTMENT 22 GM TUBE TP SCH (21:29)
--- NOTE | 2019-02-12 00:01 | CONSULT ---
Consult Consult Specialty:: Hematology Referred by:: Medicine Reason for Consultation:: Pancytopenia - History of Present Illness Chief Complaint: Panctytopenia History of Present Illness: Patient with history of ET, on HU, discharged from [facility] to rehab [place] about 2 weeks ago, following admission for diastolic CHF, is referred back to ER with report of several days confusion and weakness, and is found to be pancytopenic. During last admission was seen by our service - dose of HU increased from 500 mgs to 1g daily, in reaction to platelet count >700. Patient without complaints at this time, but is very confused, and unable to provide any useful history. 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: Dementia Cardio/Vascular: Yes: CHF, HTN ...: No Musculoskeletal: Yes: Osteoarthritis, Other (chronic gait dysfunction) Endocrine: Yes: Hypothyroidism, Other (hyperparathyroidism) Dermatology: Yes: Other (slow healing sore on the LLE) - Past Surgical History Past Surgical History: Yes: Hysterectomy - Alcohol/Substance Use Hx Alcohol Use: No History of Substance Use: reports: None - Smoking History Smoking history: Former smoker Have you smoked in the past 12 months: No Aproximately how many cigarettes per day: 0 If you are a former smoker, when did you quit?: quit over 40 yrs ago - Social History Usual Living Arrangement: With Spouse ADL: Family Assistance 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 History of Recent Travel: No Home Medications - Allergies Allergies/Adverse Reactions: Allergies Allergy/AdvReac Type Severity Reaction Status Date / Time nitrofurantoin Allergy Verified 02/10/19 19:16 [From Macrobid] nitrofurantoin Allergy Verified 02/10/19 19:16 macrocrystalline [From Macrobid] Penicillins Allergy Verified 02/10/19 19:16 - Home Medications Home Medications: Ambulatory Orders Cholecalciferol (Vitamin D3) [Vitamin D3 -] 1 tab PO DAILY 01/10/19 ASA - 162 mg PO DAILY 01/17/19 Alendronate Sodium [Fosamax] 1 tab PO WEEKLY #4 tablet 01/29/19 Cyanocobalamin (Vitamin B-12) [B-12 Dots] 500 mcg PO DAILY #100 tablet 01/29/19 Docusate Sodium [Colace -] 100 mg PO DAILY capsule 01/29/19 Escitalopram Oxalate [Lexapro -] 10 mg PO DAILY tablet 01/29/19 Hydroxyurea [Hydrea 500Mg Capsule -] 1,000 mg PO TID #100 capsule 01/29/19 Levothyroxine [Synthroid -] 100 mcg PO DAILY@0700 tablet 01/29/19 Lisinopril [Prinivil] 10 mg PO BID tablet 01/29/19 Multivitamin [Multiple Vitamins] 1 each PO Q48H #100 tablet 01/29/19 Nebivolol [Bystolic -] 10 mg PO DAILY tab 01/29/19 Olanzapine [Zyprexa -] 2.5 mg PO HS PRN tablet 01/29/19 Magnesium Hydroxide [Milk of Magnesia] 400 mg PO PRN 02/10/19 Ondansetron [Zofran -] 4 mg PO Q8H PRN 02/10/19 Polyethylene Glycol 3350 17 gm PO DAILY 02/10/19 Physical Exam Vital Signs: Vital Signs Temperature 97.4 F L 02/11/19 20:03 Pulse Rate 62 02/11/19 20:03 Respiratory Rate 20 02/11/19 21:00 Blood Pressure 141/76 02/11/19 20:03 O2 Sat by Pulse Oximetry (%) 95 02/11/19 21:00 Constitutional: Yes: No Distress, Anxious, Thin Eyes: Yes: Conjunctiva Clear, EOM Intact HENT: Yes: Atraumatic Neck: Yes: Supple, Trachea Midline. No: Lymphadenopathy Cardiovascular: Yes: Regular Rate and Rhythm, S1, S2. No: Gallop, Murmur, Rub Respiratory: Yes: Regular, CTA Bilaterally Gastrointestinal: Yes: Normal Bowel Sounds, Soft. No: Hepatomegaly, Palpable Mass, Splenomegaly Musculoskeletal: No: Joint Swelling Extremities: No: Calf Tenderness Edema: No Peripheral Pulses WNL: Yes Neurological: Yes: Alert, Cran Nerves II-XII Intact. No: Oriented, Ataxia, Dysarthria, Facial Droop ...Motor Strength: WNL Psychiatric: Yes: Alert Labs: CBC, BMP 02/11/19 10:15 02/11/19 10:15 Assessment/Plan History of ET, on HU, with recent (2 weeks ago) increase in dose from 500 to 1000mgs HU, now presenting with severe neutropenia, thrombocytopenia - dramatic drop in counts. May be attributable to HU - HU toxicity is not expected to have such a rapid onset - have to consider other etiologies, in particular exposure to other drugs potentially myelosuppresive in an idiosyncratic fashion. Curious to note that her MCV was 85 during her last admission, suggesting that she may in fact not have been taking HU even at the lower dose. Peripheral smear reviewed. Mature neutrophils noted, no pre-band forms. Treat as for febrile neutropenia - appreciate input of ID. Hold HU. Close observation - would expect ANC to improve over ensuing days. If not, then may consider bone marrow biopsy. No role for G-CSF at present, but wouldn't be unreasonable if no improvement in ANC.
[2019-02-12] MEDS ORDERED: MEROPENEM 1 GM VIAL (RESTRICTED TO ID) IVPB ONE ×3 (00:49→17:49)
[2019-02-12] MEDS ORDERED: DEXTROSE 5%-WATER 100 ML IVPB ONE ×3 (00:49→17:49)
[2019-02-12] MEDS: MEROPENEM 1 GM in DEXTROSE 5%-WATER 100 ML IVPB SCH ×3 (01:02→18:09)
[2019-02-12] MEDS: LYTES/YERBA SANTA 240 ML BOTTLE MM SCH ×6 (03:01→23:50)
[2019-02-12] MEDS: LEVOTHYROXINE NA 100 MCG TABLET (FP) PO SCH (06:12)
[2019-02-12 07:29] LABS: HEMATOCRIT 28.3 % (32.4-45.2); HEMOGLOBIN 9.8 GM/dL (10.7-15.3); MCH 29.6 pg (25.7-33.7); MCHC 34.8 g/dl (32.0-36.0); MEAN PLT VOLUME 7.1 fl (7.5-11.1); PLATELET COUNT 72 K/MM3 (134-434); RBC 3.32 M/mm3 (3.60-5.2); RDW 16.5 % (11.6-15.6)
[2019-02-12 07:58] LABS: ALBUMIN 2.4 g/dl (3.4-5.0); BILIRUBIN,TOTAL 0.8 mg/dL (0.2-1); BLOOD UREA NITROGEN 18.4 mg/dL (7-18); CALCIUM 8.8 mg/dL (8.5-10.1); CREATININE 0.5 mg/dL (0.55-1.3); MAGNESIUM 1.8 mg/dL (1.8-2.4); POTASSIUM 3.3 mmol/L (3.5-5.1); TOT PROT 5.4 g/dl (6.4-8.2)
[2019-02-12 08:03] LABS: WHITE BLOOD COUNT 0.5 K/mm3 (4.0-10.0)
[2019-02-12] MEDS ORDERED: KCL 10 MEQ IVPB 10 MEQ/100 ML INFUS.BAG IVPB SCH (09:15)
[2019-02-12] MEDS ORDERED: PT OWN MED DRAWER 7, Y5N ONE ×2 (10:27→17:49)
[2019-02-12] MEDS: MULTIVITAMINS (DAILY MVI) TABLET (FP) PO SCH (10:31)
[2019-02-12] MEDS: amLODIPine BESYLATE 2.5 MG TABLET (FP) PO SCH (10:31)
[2019-02-12] MEDS: PANTOPRAZOLE SODIUM 40 MG VIAL IVPB SCH (10:32)
[2019-02-12] MEDS: MUPIROCIN 2% TOPICAL OINTMENT 22 GM TUBE TP SCH ×2 (10:32→21:46)
[2019-02-12] MEDS: DEXTROSE 5%-0.45% SALINE 1,000 ML IV SCH ×2 (10:32→15:46)
[2019-02-12] MEDS: ACETAMINOPHEN 1000 MG/100 ML VIAL (NON FORMULARY) IVPB PRN (12:00)
--- NOTE | 2019-02-12 14:15 | PN ---
Progress Note (short form) - Note Progress Note: no complaints daughter at bedside Vital Signs Period Temp Pulse Resp BP Sys/Johnson Pulse Ox Last 24 Hr 97.4 F-99.2 F 60-73 18-20 139-165/71-80 95 cor-rrr lungs decreased bs at bases abd soft,nt ext venous stasis left lower extremity Microbiology 02/10/19 20:30 Urine - Urine Clean Catch Urine Culture - Preliminary Lactose Fermenting Neg Bacilli 02/10/19 18:53 Blood - Peripheral Venous Blood Culture - Preliminary NO GROWTH OBTAINED AFTER 24 HOURS, INCUBATION TO CONTINUE FOR 4 DAYS. 02/10/19 18:57 Blood - Peripheral Venous Blood Culture - Preliminary NO GROWTH OBTAINED AFTER 24 HOURS, INCUBATION TO CONTINUE FOR 4 DAYS. CBC, BMP 02/12/19 06:55 02/12/19 06:55 imp/reccd febrile neutropenia- UTI, possible pneumonia penicillin allergy pancytopenia--?malignancy suspect neutropenia due to hydroxyurea- on hold- ?neupogen f/u cultures continue vancomycin/meropenem urine for legionella and pneumococcal antigen pending d/w family at bedside overall prognosis is guarded Problem List - Problems (1) Neutropenic sepsis Code(s): A41.9 - SEPSIS, UNSPECIFIED ORGANISM; D70.9 - NEUTROPENIA, UNSPECIFIED (2) Pneumonia Code(s): J18.9 - PNEUMONIA, UNSPECIFIED ORGANISM Qualifiers: Pneumonia type: due to unspecified organism Laterality: bilateral Lung location: unspecified part of lung Qualified Code(s): J18.9 - Pneumonia, unspecified organism (3) UTI (urinary tract infection) Code(s): N39.0 - URINARY TRACT INFECTION, SITE NOT SPECIFIED (4) Penicillin allergy Code(s): Z88.0 - ALLERGY STATUS TO PENICILLIN (5) Essential thrombocytosis Code(s): D47.3 - ESSENTIAL (HEMORRHAGIC) THROMBOCYTHEMIA
--- NOTE | 2019-02-12 16:57 | PN ---
Progress Note (short form) - Note Progress Note: Subjective: Patient seen and examined at bedside. No new complaints, no events overnight. Objective: Vital Signs Temperature 98.5 F 02/12/19 14:00 Pulse Rate 75 02/12/19 14:00 Respiratory Rate 20 02/12/19 14:00 Blood Pressure 156/77 02/12/19 14:00 O2 Sat by Pulse Oximetry (%) 95 02/11/19 21:00 Physical exam: Gen.: patient found lying in bed. Well appearing. Awake, alert. Lungs: clear to auscultation bilaterally down to the bases. Heart: regular rate and rhythm. S1, S2 heard. No murmurs gallops or rubs heard. Abdomen: soft, nontender, nondistended. Bowel sounds heard. Extremities: no peripheral edema noted. No bruising, swelling, erythema or warmth of extremities noted. neuro: patient A&O x3. Moving all four limbs spontaneously. CBC, BMP 02/12/19 06:55 02/12/19 06:55 Assessment and plan: The patient is an 83-year-old female with a past medical history of hypertension , hyperthyroidism, hyperparathyroidism and essential thrombocytosis who presented to the emergency department complaining of generalized weakness and SOB. The patient was found to be pancytopenic. #Pancytopenia -platelets today 72 -WBC .5, ANC 100 -UCx growing organism -Hydrea and infection both may be contributing to patient's pancytopenia -holding Hydrea at this time -Will monitor CBC for return of bone marrow function -UTI being treated with meropenem (patient PCN allergic) -will administer dose of neupogen #Essential thrombocytosis -Hydrea on hold -monitor CBC
[2019-02-12] MEDS ORDERED: ONDANSETRON 4 MG/2 ML VIAL IVPUSH STA (17:32)
--- NOTE | 2019-02-12 17:32 | PN ---
Progress Note (short form) - Note Progress Note: Current Medications Acetaminophen (Ofirmev Injection -) 1,000 mg IVPB Q8H PRN PRN Reason: PAIN Last Admin: 02/12/19 12:00 Dose: 1,000 mg Amino Acids (Prosource No Carb Liquid Pkt) 30 ml PO BID@0800,1730 [facility] Amlodipine Besylate (Norvasc -) 2.5 mg PO DAILY PAT Last Admin: 02/12/19 10:31 Dose: 2.5 mg Dextrose/Sodium Chloride (D5-1/2ns -) 1,000 mls @ 42 mls/hr IV ASDIR PAT Last Admin: 02/12/19 15:46 Dose: 42 mls/hr Meropenem 1 gm/ Dextrose 100 mls @ 200 mls/hr IVPB Q8H-IV PAT Last Admin: 02/12/19 10:31 Dose: 200 mls/hr Vancomycin HCl (Vancomycin (Pre-Docked)) 1,000 mg in 250 mls @ 166.667 mls/hr IVPB Q24H PAT; Protocol Last Admin: 02/11/19 21:27 Dose: 166.667 mls/hr Levothyroxine Sodium (Synthroid -) 100 mcg PO DAILY@0700 PAT Last Admin: 02/12/19 06:12 Dose: 100 mcg Multivitamins/Minerals/Vitamin C (Tab-A-Vit -) 1 tab PO DAILY PAT Last Admin: 02/12/19 10:31 Dose: 1 tab Mupirocin (Bactroban 2% Ointment -) 1 applic TP BID [facility] Last Admin: 02/12/19 10:32 Dose: 1 applic Pantoprazole Sodium (Protonix Iv) 40 mg IVPB DAILY PAT Last Admin: 02/12/19 10:32 Dose: 40 mg Saliva Substitute (Mouthkote Solution -) 3 applic MM Q4H PAT Last Admin: 02/12/19 15:45 Dose: 3 applic Laboratory Results - last 24 hr 02/12/19 02/12/19 02/12/19 06:55 06:55 06:55 WBC 0.5 L* RBC 3.32 L Hgb 9.8 L Hct 28.3 L MCV 85.0 MCH 29.6 MCHC 34.8 RDW 16.5 H Plt Count 72 L MPV 7.1 L Sodium 133 L Potassium 3.3 L Chloride 100 Carbon Dioxide 25 Anion Gap 8 BUN 18.4 H Creatinine 0.5 L Est GFR (CKD-EPI)AfAm 102.29 Est GFR (CKD-EPI)NonAf 88.25 Random Glucose 104 Calcium 8.8 Magnesium 1.8 Total Bilirubin 0.8 AST 19 ALT 19 Alkaline Phosphatase 59 Total Protein 5.4 L Albumin 2.4 L Vitamin B12 1347 H Serum Folate 20 H Free T4 02/12/19 06:55 WBC RBC Hgb Hct MCV MCH MCHC RDW Plt Count MPV Sodium Potassium Chloride Carbon Dioxide Anion Gap BUN Creatinine Est GFR (CKD-EPI)AfAm Est GFR (CKD-EPI)NonAf Random Glucose Calcium Magnesium Total Bilirubin AST ALT Alkaline Phosphatase Total Protein Albumin Vitamin B12 Serum Folate Free T4 1.16 Vital Signs Temperature 98.5 F 02/12/19 14:00 Pulse Rate 75 02/12/19 14:00 Respiratory Rate 20 02/12/19 14:00 Blood Pressure 156/77 02/12/19 14:00 O2 Sat by Pulse Oximetry (%) 95 02/11/19 21:00 CC: nausea ``````````````````` skin--stasis changes of LE's; no rashes head--NC eyes--ancicteric oral--no droop neck--no masses; nodes or goiter lungs--unlabored; no wheezing heart--RR abd--soft, NT ext--no edema neuro--asthenic; psycho motor slowing; thoughts organized but prone to lapses; not oriented to place and time; able to recognize people and knows names; demeanor is calm ````````````````````````````````````````````` Summ > pancytopenia--multi-factoral; combo of state of infection, use of HU (now stopped); other? (see 1st heme note). PLAN: cont to hold HU; not a candidate for Neupagen as per heme onc. > HTn--BP rising; start low dose CCB > Nausea--no specific cause; could be drug induced PLAN: Prn Zofran > UTI--Gm (-) org; on Abs; await ID > AbnL Chest imaging--? early PNA; Leg Ab is negative > Low potassium--replensish as needed > Moderate malnutrition--low albumin; and has lost weight 2nd poor PO intake > Hypothyroid--T4 WNL > Fail thrive--multiple causes; converging to produce state of debility, from which it is uncertain if she can recover ``````````````````````````````````````````` Dr Campbell
[2019-02-12] MEDS ORDERED: ONDANSETRON 4 MG/2 ML VIAL IVPB PRN (17:33)
[2019-02-12] MEDS: AMINO ACIDS/PROTEIN HYDROLYS 30 ML LIQUID.PKT PO SCH (18:09)
[2019-02-12] MEDS ORDERED: TBO-FILGRASTIM 300 MCG/0.5 ML DISP.SYRINGE SQ ONE (19:44)
[2019-02-12] MEDS: VANCOMYCIN 1 GRAM (PRE-DOCKED) 1,000 MG/250 ML BAG IVPB SCH (20:05)
[2019-02-12] MEDS: ACETAMINOPHEN 325 MG TABLET (FP) PO SCH (21:39)
--- NOTE | 2019-02-12 23:34 | PN ---
Progress Note (short form) - Note Progress Note: Patient seen and examined Mumbling. Repeating, Confused AFVSS Cor: RSR, No murmurs, No gallops Lungs: Clear to P&A Abd: Soft, Normal bowel sounds, No organomegaly Ext:No significant edema Labs/Meds reviewed A/P 83yo F with PMH of HTN, HLD, essential thrombocytosis, Hypothyroidism , CHF, recent admission for worsening gait, shortness of breath, and discharged to [facility]. Now comes in with generalized weakness h/o essential thrombocytosis, on hydrea. Now on hold now with pancytopenia -- ? related to hydrea versus marrow suppression from infection On meropenem/vanco for presumed UTI/pneumonia will add neupogen monitor CBC will continue aspirin 81 mg daily for platelets > 50,000 will follow
[2019-02-13] MEDS ORDERED: MEROPENEM 1 GM VIAL (RESTRICTED TO ID) IVPB ONE ×3 (00:38→19:38)
[2019-02-13] MEDS ORDERED: DEXTROSE 5%-WATER 100 ML IVPB ONE ×3 (00:39→19:38)
[2019-02-13] MEDS: MEROPENEM 1 GM in DEXTROSE 5%-WATER 100 ML IVPB SCH ×3 (01:49→19:44)
[2019-02-13] MEDS: LYTES/YERBA SANTA 240 ML BOTTLE MM SCH ×4 (03:30→15:50)
[2019-02-13] MEDS: LEVOTHYROXINE NA 100 MCG TABLET (FP) PO SCH (06:01)
[2019-02-13] MEDS: AMINO ACIDS/PROTEIN HYDROLYS 30 ML LIQUID.PKT PO SCH ×2 (08:49→18:08)
[2019-02-13] MEDS: DEXTROSE 5%-0.45% SALINE 1,000 ML IV SCH ×2 (08:50→23:38)
[2019-02-13 09:33] LABS: BASO % 0.4 % (0-2.0); EOS % 1.6 % (0-4.5); HEMOGLOBIN 11.2 GM/dL (10.7-15.3); LYMPH % 87.8 % (8-40); MCH 29.1 pg (25.7-33.7); MCHC 33.9 g/dl (32.0-36.0); MEAN CELL VOLUME 85.7 fl (80-96); MEAN PLT VOLUME 7.3 fl (7.5-11.1); MONO % 0.7 % (3.8-10.2); NEUT % 9.5 % (42.8-82.8); PLATELET COUNT 80 K/MM3 (134-434); RBC 3.85 M/mm3 (3.60-5.2); RDW 16.5 % (11.6-15.6)
[2019-02-13 09:34] LABS: WHITE BLOOD COUNT 0.4 K/mm3 (4.0-10.0)
[2019-02-13 09:37] LABS: ALBUMIN 2.6 g/dl (3.4-5.0); BLOOD UREA NITROGEN 16.2 mg/dL (7-18); CALCIUM 9.2 mg/dL (8.5-10.1); CREATININE 0.5 mg/dL (0.55-1.3); POTASSIUM 3.6 mmol/L (3.5-5.1)
[2019-02-13] MEDS ORDERED: PT OWN MED DRAWER 7, Y5N ONE (10:52)
[2019-02-13] MEDS: ASPIRIN COATED 81 MG TABLET.EC PO SCH (10:57)
[2019-02-13] MEDS: amLODIPine BESYLATE 2.5 MG TABLET (FP) PO SCH (10:57)
[2019-02-13] MEDS: ACETAMINOPHEN 325 MG TABLET (FP) PO SCH (10:57)
[2019-02-13] MEDS: MUPIROCIN 2% TOPICAL OINTMENT 22 GM TUBE TP SCH ×2 (10:57→22:02)
[2019-02-13] MEDS: MULTIVITAMINS (DAILY MVI) TABLET (FP) PO SCH (10:57)
[2019-02-13] MEDS: PANTOPRAZOLE SODIUM 40 MG VIAL IVPB SCH (10:57)
[2019-02-13] MEDS: FOLIC ACID 1 MG TABLET (FP) PO SCH (10:57)
[2019-02-13 10:58] LABS: ANISOCYTOSIS 1+; MACROCYTOSIS 1+; OVALOCYTE 1+
[2019-02-13 10:59] LABS: PLATELET ESTIMATE DECREASED
[2019-02-13] MEDS ORDERED: TBO-FILGRASTIM 300 MCG/0.5 ML DISP.SYRINGE SQ ONE (11:35)
--- NOTE | 2019-02-13 13:00 | PN ---
Progress Note (short form) - Note Progress Note: Subjective: Patient seen and examined at bedside. No new complaints, no events overnight. Objective: Vital Signs Temperature 98.6 F 02/13/19 06:25 Pulse Rate 74 02/13/19 06:25 Respiratory Rate 20 02/13/19 09:00 Blood Pressure 156/72 02/13/19 06:25 O2 Sat by Pulse Oximetry (%) 94 L 02/13/19 09:00 Physical exam: Gen.: patient found lying in bed. Well appearing. Awake, alert. Lungs: clear to auscultation bilaterally down to the bases. Heart: regular rate and rhythm. S1, S2 heard. No murmurs gallops or rubs heard. Abdomen: soft, nontender, nondistended. Bowel sounds heard. Extremities: no peripheral edema noted. No bruising, swelling, erythema or warmth of extremities noted. neuro: patient A&O x3. Moving all four limbs spontaneously. Active Medications Acetaminophen (Tylenol -) 650 mg PO BID [facility] Last Admin: 02/13/19 10:57 Dose: 650 mg Amino Acids (Prosource No Carb Liquid Pkt) 30 ml PO BID@0800,1730 [facility] Last Admin: 02/13/19 08:49 Dose: 30 ml Amlodipine Besylate (Norvasc -) 2.5 mg PO DAILY [facility] Last Admin: 02/13/19 10:57 Dose: 2.5 mg Aspirin (Ecotrin -) 81 mg PO DAILY [facility] Last Admin: 02/13/19 10:57 Dose: 81 mg Folic Acid (Folic Acid -) 1 mg PO DAILY [facility] Last Admin: 02/13/19 10:57 Dose: 1 mg Dextrose/Sodium Chloride (D5-1/2ns -) 1,000 mls @ 42 mls/hr IV ASDIR [facility] Last Admin: 02/13/19 08:50 Dose: Not Given Meropenem 1 gm/ Dextrose 100 mls @ 200 mls/hr IVPB Q8H-IV [facility] Last Admin: 02/13/19 10:57 Dose: 200 mls/hr Levothyroxine Sodium (Synthroid -) 100 mcg PO DAILY@0700 [facility] Last Admin: 02/13/19 06:01 Dose: 100 mcg Multivitamins/Minerals/Vitamin C (Tab-A-Vit -) 1 tab PO DAILY [facility] Last Admin: 02/13/19 10:57 Dose: 1 tab Mupirocin (Bactroban 2% Ointment -) 1 applic TP BID [facility] Last Admin: 02/13/19 10:57 Dose: 1 applic Ondansetron HCl (Zofran Injection) 8 mg IVPB Q8H PRN PRN Reason: NAUSEA Pantoprazole Sodium (Protonix Iv) 40 mg IVPB DAILY [facility] Last Admin: 02/13/19 10:57 Dose: 40 mg Saliva Substitute (Mouthkote Solution -) 3 applic MM Q4H PAT Last Admin: 02/13/19 10:58 Dose: 3 applic Tbo-Filgrastim (Granix -) 300 mcg SQ ONCE ONE Stop: 02/13/19 11:36 Home Medications Medication Instructions Recorded Cholecalciferol (Vitamin D3) 1 tab PO DAILY 01/10/19 [Vitamin D3 -] ASA - 162 mg PO DAILY 01/17/19 Alendronate Sodium [Fosamax] 1 tab PO WEEKLY #4 tablet 01/29/19 Cyanocobalamin (Vitamin B-12) 500 mcg PO DAILY #100 tablet 01/29/19 [B-12 Dots] Docusate Sodium [Colace -] 100 mg PO DAILY capsule 01/29/19 Escitalopram Oxalate [Lexapro -] 10 mg PO DAILY tablet 01/29/19 Hydroxyurea [Hydrea 500Mg Capsule 1,000 mg PO TID #100 capsule 01/29/19 -] Levothyroxine [Synthroid -] 100 mcg PO DAILY@0700 tablet 01/29/19 Lisinopril [Prinivil] 10 mg PO BID tablet 01/29/19 Multivitamin [Multiple Vitamins] 1 each PO Q48H #100 tablet 01/29/19 Nebivolol [Bystolic -] 10 mg PO DAILY tab 01/29/19 Olanzapine [Zyprexa -] 2.5 mg PO HS PRN tablet 01/29/19 Magnesium Hydroxide [Milk of 400 mg PO PRN 02/10/19 Magnesia] Ondansetron [Zofran -] 4 mg PO Q8H PRN 02/10/19 Polyethylene Glycol 3350 17 gm PO DAILY 02/10/19 Allergies Allergy/AdvReac Type Severity Reaction Status Date / Time nitrofurantoin Allergy Verified 02/10/19 19:16 [From Macrobid] nitrofurantoin Allergy Verified 02/10/19 19:16 macrocrystalline [From Macrobid] Penicillins Allergy Verified 02/10/19 19:16 CBC, BMP 02/13/19 07:15 02/13/19 07:15 Assessment and plan: The patient is an 83-year-old female with a past medical history of hypertension , hyperthyroidism, hyperparathyroidism and essential thrombocytosis who presented to the emergency department complaining of generalized weakness and SOB. The patient was found to be pancytopenic. #Pancytopenia -platelets today 80; improved -WBC .4, ANC 40 -UCx growing citrobacter freundii -Hydrea and infection both may be contributing to patient's pancytopenia -holding Hydrea at this time -Will monitor CBC for return of bone marrow function -ID onboard -UTI being treated with meropenem (patient PCN allergic) -dose of granix given yesterday; will give another dose today #Essential thrombocytosis -Hydrea on hold -monitor CBC
--- NOTE | 2019-02-13 14:34 | PN ---
Progress Note (short form) - Note Progress Note: no complaints daughter at bedside alert but confused not eating Vital Signs Period Temp Pulse Resp BP Sys/Johnson Pulse Ox Last 24 Hr 98.6 F-98.9 F 72-74 20-22 147-156/72-85 94-95 cor-rrr lungs clear abd soft,nt ext no edema venous stasis changes LLE no rash CBC, BMP 02/13/19 07:15 02/13/19 07:15 Microbiology 02/10/19 20:30 Urine - Urine Clean Catch Urine Culture - Final Citrobacter Freundii 02/10/19 18:57 Blood - Peripheral Venous Blood Culture - Preliminary NO GROWTH OBTAINED AFTER 48 HOURS, INCUBATION TO CONTINUE FOR 3 DAYS. 02/10/19 18:53 Blood - Peripheral Venous Blood Culture - Preliminary NO GROWTH OBTAINED AFTER 48 HOURS, INCUBATION TO CONTINUE FOR 3 DAYS. 02/11/19 23:00 Urine For Antigen Detection Legionella Antigen - Final 02/11/19 23:00 Urine For Antigen Detection Streptococcus pneumoniae Antigen (M - Final imp/reccd febrile neutropenia- citrobacter UTI, possible aspiration pneumonia, continue meropenem- day #3 penicillin allergy pancytopenia--?malignancy suspect neutropenia due to hydroxyurea- on hold- ?neupogen blood cultures negative urine for legionella and pneumococcal antigen negative d/w family at bedside overall prognosis is guarded they want her to be comfortable Problem List - Problems (1) Neutropenic sepsis Code(s): A41.9 - SEPSIS, UNSPECIFIED ORGANISM; D70.9 - NEUTROPENIA, UNSPECIFIED (2) Pneumonia Code(s): J18.9 - PNEUMONIA, UNSPECIFIED ORGANISM Qualifiers: Pneumonia type: due to unspecified organism Laterality: bilateral Lung location: unspecified part of lung Qualified Code(s): J18.9 - Pneumonia, unspecified organism (3) UTI (urinary tract infection) Code(s): N39.0 - URINARY TRACT INFECTION, SITE NOT SPECIFIED (4) Penicillin allergy Code(s): Z88.0 - ALLERGY STATUS TO PENICILLIN (5) Essential thrombocytosis Code(s): D47.3 - ESSENTIAL (HEMORRHAGIC) THROMBOCYTHEMIA
[2019-02-13] MEDS ORDERED: ACETAMINOPHEN 325 MG TABLET (FP) PO ONE (15:45)
[2019-02-13] MEDS ORDERED: LACTULOSE 20 GM/30 ML UDC (FOR ORAL USE ONLY) PO ONE (16:59)
[2019-02-13] MEDS ORDERED: ACETAMINOPHEN 500 MG TABLET (FP) PO SCH (17:00)
--- NOTE | 2019-02-13 17:16 | PN ---
Progress Note (short form) - Note Progress Note: Current Medications Acetaminophen (Tylenol -) 500 mg PO Q6H [facility] Amino Acids (Prosource No Carb Liquid Pkt) 30 ml PO BID@0800,1730 [facility] Last Admin: 02/13/19 08:49 Dose: 30 ml Amlodipine Besylate (Norvasc -) 2.5 mg PO DAILY [facility] Last Admin: 02/13/19 10:57 Dose: 2.5 mg Aspirin (Ecotrin -) 81 mg PO DAILY [facility] Last Admin: 02/13/19 10:57 Dose: 81 mg Docusate Sodium (Colace -) 100 mg PO BID [facility] Folic Acid (Folic Acid -) 1 mg PO DAILY [facility] Last Admin: 02/13/19 10:57 Dose: 1 mg Dextrose/Sodium Chloride (D5-1/2ns -) 1,000 mls @ 42 mls/hr IV ASDIR [facility] Last Admin: 02/13/19 08:50 Dose: Not Given Meropenem 1 gm/ Dextrose 100 mls @ 200 mls/hr IVPB Q8H-IV [facility] Last Admin: 02/13/19 10:57 Dose: 200 mls/hr Levothyroxine Sodium (Synthroid -) 100 mcg PO DAILY@0700 [facility] Last Admin: 02/13/19 06:01 Dose: 100 mcg Multivitamins/Minerals/Vitamin C (Tab-A-Vit -) 1 tab PO DAILY [facility] Last Admin: 02/13/19 10:57 Dose: 1 tab Mupirocin (Bactroban 2% Ointment -) 1 applic TP BID [facility] Last Admin: 02/13/19 10:57 Dose: 1 applic Ondansetron HCl (Zofran Injection) 8 mg IVPB Q8H PRN PRN Reason: NAUSEA Pantoprazole Sodium (Protonix Iv) 40 mg IVPB DAILY [facility] Last Admin: 02/13/19 10:57 Dose: 40 mg Saliva Substitute (Mouthkote Solution -) 3 applic MM Q4H [facility] Last Admin: 02/13/19 15:50 Dose: 3 applic Laboratory Results - last 24 hr 02/13/19 02/13/19 02/13/19 07:15 07:15 10:50 WBC 0.4 L* RBC 3.85 Hgb 11.2 Hct 33.0 D MCV 85.7 MCH 29.1 MCHC 33.9 RDW 16.5 H Plt Count 80 L MPV 7.3 L Absolute Neuts (auto) 0.0 L Total Counted 100 Neutrophils % 9.5 L D Neutrophils % (Manual) 10.0 L Lymphocytes % 87.8 H Lymphocytes % (Manual) 84.0 H* Monocytes % 0.7 L D Eosinophils % 1.6 D Eosinophils % (Manual) 1.0 D Basophils % 0.4 Nucleated RBC % 1 H Platelet Estimate Decreased Platelet Comment No clotting detected Anisocytosis 1+ Microcytosis 1+ Macrocytosis 1+ Ovalocytes 1+ Schistocytes 1+ Sodium 131 L Potassium 3.6 Chloride 98 Carbon Dioxide 25 Anion Gap 7 L BUN 16.2 Creatinine 0.5 L Est GFR (CKD-EPI)AfAm 102.29 Est GFR (CKD-EPI)NonAf 88.25 Random Glucose 94 Calcium 9.2 Total Bilirubin 1.0 AST 16 ALT 23 Alkaline Phosphatase 65 Total Protein 6.0 L Albumin 2.6 L Vancomycin Pre-Dose 14.0 L Vital Signs Temperature 98.1 F 02/13/19 14:00 Pulse Rate 71 02/13/19 14:00 Respiratory Rate 20 02/13/19 14:00 Blood Pressure 157/75 02/13/19 14:00 O2 Sat by Pulse Oximetry (%) 94 L 02/13/19 09:00 CC: weakness/lack of appetite ``````````````````` skin--stasis changes of LE's; no rashes head--NC eyes--ancicteric oral--no droop; edges of tongue coated abd--soft, NT ext--no edema neuro--asthenic; psycho motor slowing; prone to lapses; not oriented to place and time; able to recognize people and knows names; demeanor is calm ````````````````````````````````````````````` Summ > pancytopenia--multi-factoral; combo of state of infection, use of HU (now stopped); other? (see 1st heme note). PLAN: cont to hold HU; was Rx'd Granix by Dr Stephenson. > oral thrush--Rx antifungal > HTn--SBP a bit high while on CCB; HR okay > Nausea--resolved > UTI--Citrobacter; on meropenem > AbnL Chest imaging--? early PNA; Leg Ab is negative > Low potassium--replenish as needed > Moderate malnutrition--low albumin; and has lost weight 2nd poor PO intake > Hypothyroid--T4 WNL > Fail thrive--multiple causes; converging to produce state of debility, from which it is uncertain if she can recover ``````````````````````````````````````````` Dr Campbell
[2019-02-13] MEDS ORDERED: FLUCONAZOLE 150 MG TABLET PO ONE (17:17)
[2019-02-13] MEDS ORDERED: MINERAL OIL 30 ML UNIT-DOSE CUP PO ONE (17:18)
[2019-02-13] MEDS: ACETAMINOPHEN 500 MG TABLET (FP) PO SCH (18:09)
[2019-02-13] MEDS ORDERED: MAG HYDROX/ALH/SMC/DPHA/LIDO 240 ML MOUTHWASH MM ONE (18:15)
--- NOTE | 2019-02-13 19:44 | PN ---
Progress Note (short form) - Note Progress Note: Patient seen and examined with Dr. Elaine. Agree with note and plan S: Complaining of a headache. O: Last Vital Signs Temp Pulse Resp BP Pulse Ox 98.1 F 71 20 157/75 94 L 02/13/19 14:00 02/13/19 14:00 02/13/19 14:00 02/13/19 14:00 02/13/19 09:00 AFVSS HEENT: Oral thrush in palate, erythematous Cor: RSR, No murmurs, No gallops Lungs: Clear to P&A Abd: Soft, Normal bowel sounds, No organomegaly Ext:No significant edema 02/13/19 07:15 02/13/19 07:15 Current Medications Acetaminophen (Tylenol -) 500 mg PO Q6HPO [facility] Last Admin: 02/13/19 18:09 Dose: Not Given Amino Acids (Prosource No Carb Liquid Pkt) 30 ml PO BID@0800,1730 [facility] Last Admin: 02/13/19 18:08 Dose: 30 ml Amlodipine Besylate (Norvasc -) 2.5 mg PO DAILY [facility] Last Admin: 02/13/19 10:57 Dose: 2.5 mg Aspirin (Ecotrin -) 81 mg PO DAILY [facility] Last Admin: 02/13/19 10:57 Dose: 81 mg Docusate Sodium (Colace -) 100 mg PO BID [facility] Folic Acid (Folic Acid -) 1 mg PO DAILY [facility] Last Admin: 02/13/19 10:57 Dose: 1 mg Dextrose/Sodium Chloride (D5-1/2ns -) 1,000 mls @ 42 mls/hr IV ASDIR [facility] Last Admin: 02/13/19 08:50 Dose: Not Given Meropenem 1 gm/ Dextrose 100 mls @ 200 mls/hr IVPB Q8H-IV [facility] Last Admin: 02/13/19 10:57 Dose: 200 mls/hr Levothyroxine Sodium (Synthroid -) 100 mcg PO DAILY@0700 [facility] Last Admin: 02/13/19 06:01 Dose: 100 mcg Multivitamins/Minerals/Vitamin C (Tab-A-Vit -) 1 tab PO DAILY [facility] Last Admin: 02/13/19 10:57 Dose: 1 tab Mupirocin (Bactroban 2% Ointment -) 1 applic TP BID [facility] Last Admin: 02/13/19 10:57 Dose: 1 applic Ondansetron HCl (Zofran Injection) 8 mg IVPB Q8H PRN PRN Reason: NAUSEA Pantoprazole Sodium (Protonix Iv) 40 mg IVPB DAILY [facility] Last Admin: 02/13/19 10:57 Dose: 40 mg A/P 83 y/o lady with PMH of HTN, HLD, essential thrombocytosis, Hypothyroidism , CHF , recent admission for worsening gait, shortness of breath, and discharged to [facility]. Now comes in with generalized weakness h/o essential thrombocytosis, on hydrea. Now on hold now with pancytopenia -- ? related to hydrea versus marrow suppression from infection On meropenem/vanco for presumed UTI/pneumonia On neupogen (D2) will continue/ ANC 0.0 (0.04). Needs Fluconazole and Valtrex. Also nystatin swish and spit due to oral thrush monitor CBC may need BMBx will continue aspirin 81 mg daily for platelets > 50,000 will follow
[2019-02-13] MEDS: DOCUSATE SODIUM 100 MG CAPSULE (FP) PO SCH (21:12)
[2019-02-14] MEDS ORDERED: DEXTROSE 5%-WATER 100 ML IVPB ONE ×3 (00:40→18:14)
[2019-02-14] MEDS ORDERED: MEROPENEM 1 GM VIAL (RESTRICTED TO ID) IVPB ONE ×3 (00:40→18:14)
[2019-02-14] MEDS: MEROPENEM 1 GM in DEXTROSE 5%-WATER 100 ML IVPB SCH ×3 (01:27→18:21)
[2019-02-14] MEDS: ACETAMINOPHEN 500 MG TABLET (FP) PO SCH ×4 (05:50→17:00)
[2019-02-14] MEDS: LEVOTHYROXINE NA 100 MCG TABLET (FP) PO SCH (06:01)
[2019-02-14 07:52] LABS: EOS % 2.9 % (0-4.5); HEMATOCRIT 27.9 % (32.4-45.2); HEMOGLOBIN 9.6 GM/dL (10.7-15.3); LYMPH % 88.8 % (8-40); MCH 29.3 pg (25.7-33.7); MCHC 34.3 g/dl (32.0-36.0); MEAN CELL VOLUME 85.4 fl (80-96); MEAN PLT VOLUME 7.3 fl (7.5-11.1); MONO % 3.4 % (3.8-10.2); NEUT % 4.9 % (42.8-82.8); PLATELET COUNT 73 K/MM3 (134-434); RBC 3.27 M/mm3 (3.60-5.2); RDW 16.6 % (11.6-15.6)
[2019-02-14 08:11] LABS: ALBUMIN 2.1 g/dl (3.4-5.0); BILIRUBIN,TOTAL 0.7 mg/dL (0.2-1); BLOOD UREA NITROGEN 18.1 mg/dL (7-18); CALCIUM 8.7 mg/dL (8.5-10.1); CREATININE 0.4 mg/dL (0.55-1.3); TOT PROT 5.1 g/dl (6.4-8.2)
[2019-02-14 08:17] LABS: POTASSIUM 2.9 mmol/L (3.5-5.1)
[2019-02-14 09:01] LABS: WHITE BLOOD COUNT 0.4 K/mm3 (4.0-10.0)
[2019-02-14] MEDS: PANTOPRAZOLE SODIUM 40 MG VIAL IVPB SCH (10:46)
[2019-02-14] MEDS: DEXTROSE 5%-0.45% SALINE 1,000 ML IV SCH (10:50)
[2019-02-14] MEDS: AMINO ACIDS/PROTEIN HYDROLYS 30 ML LIQUID.PKT PO SCH ×2 (10:50→16:52)
[2019-02-14] MEDS: MUPIROCIN 2% TOPICAL OINTMENT 22 GM TUBE TP SCH ×2 (10:51→22:10)
[2019-02-14] MEDS: amLODIPine BESYLATE 2.5 MG TABLET (FP) PO SCH (10:54)
[2019-02-14] MEDS: FOLIC ACID 1 MG TABLET (FP) PO SCH (10:54)
[2019-02-14] MEDS: MULTIVITAMINS (DAILY MVI) TABLET (FP) PO SCH (10:54)
[2019-02-14] MEDS: ASPIRIN COATED 81 MG TABLET.EC PO SCH (10:55)
[2019-02-14] MEDS: DOCUSATE SODIUM 100 MG CAPSULE (FP) PO SCH ×2 (10:55→12:40)
[2019-02-14] MEDS: NYSTATIN 500,000 UNITS/5 ML SUSPENSION PO SCH ×2 (13:38→18:06)
[2019-02-14] MEDS: KCL 10 MEQ IVPB 10 MEQ/100 ML INFUS.BAG IVPB SCH ×2 (13:39→16:53)
[2019-02-14] MEDS: FLUCONAZOLE 100 MG TABLET (UD) PO SCH (13:43)
[2019-02-14 14:21] LABS: ANISOCYTOSIS 1+; MACROCYTOSIS 0; PLATELET ESTIMATE DECREASED
[2019-02-14] MEDS ORDERED: TBO-FILGRASTIM 300 MCG/0.5 ML DISP.SYRINGE SQ ONE (14:24)
--- NOTE | 2019-02-14 16:50 | PN ---
Progress Note (short form) - Note Progress Note: no complaints daughter at bedside alert not confused Vital Signs Period Temp Pulse Resp BP Sys/Johnson Pulse Ox Last 24 Hr 97.3 F-100.0 F 72-82 20-20 110-152/68-89 94-94 minimal thrush few vesicles on her upper palate cor-rrr lungs crackles at right base abd soft,nt ext no edema CBC, BMP 02/14/19 06:27 02/14/19 06:27 Microbiology 02/10/19 18:53 Blood - Peripheral Venous Blood Culture - Preliminary NO GROWTH OBTAINED AFTER 72 HOURS, INCUBATION TO CONTINUE FOR 2 DAYS. 02/10/19 18:57 Blood - Peripheral Venous Blood Culture - Preliminary NO GROWTH OBTAINED AFTER 72 HOURS, INCUBATION TO CONTINUE FOR 2 DAYS. 02/10/19 20:30 Urine - Urine Clean Catch Urine Culture - Final Citrobacter Freundii 02/11/19 23:00 Urine For Antigen Detection Legionella Antigen - Final 02/11/19 23:00 Urine For Antigen Detection Streptococcus pneumoniae Antigen (M - Final imp/reccd febrile neutropenia- citrobacter UTI, possible aspiration pneumonia, continue meropenem- day #4 penicillin allergy pancytopenia--?malignancy suspect neutropenia due to hydroxyurea- on hold- ?neupogen blood cultures negative urine for legionella and pneumococcal antigen negative diflucan added add acyclovir for vesicles in her mouth (hsv) d/w family at bedside overall prognosis is guarded they want her to be comfortable Problem List - Problems (1) Neutropenic sepsis Code(s): A41.9 - SEPSIS, UNSPECIFIED ORGANISM; D70.9 - NEUTROPENIA, UNSPECIFIED (2) Pneumonia Code(s): J18.9 - PNEUMONIA, UNSPECIFIED ORGANISM Qualifiers: Qualified Code(s): J18.9 - Pneumonia, unspecified organism (3) UTI (urinary tract infection) Code(s): N39.0 - URINARY TRACT INFECTION, SITE NOT SPECIFIED (4) Penicillin allergy Code(s): Z88.0 - ALLERGY STATUS TO PENICILLIN (5) Essential thrombocytosis Code(s): D47.3 - ESSENTIAL (HEMORRHAGIC) THROMBOCYTHEMIA
--- NOTE | 2019-02-14 16:54 | PN ---
Progress Note (short form) - Note Progress Note: Current Medications Acetaminophen (Tylenol -) 500 mg PO Q6HPO [facility] Last Admin: 02/14/19 13:42 Dose: 500 mg Amino Acids (Prosource No Carb Liquid Pkt) 30 ml PO BID@0800,1730 [facility] Last Admin: 02/14/19 10:50 Dose: 30 ml Amlodipine Besylate (Norvasc -) 2.5 mg PO DAILY [facility] Last Admin: 02/14/19 10:54 Dose: 2.5 mg Aspirin (Ecotrin -) 81 mg PO DAILY [facility] Last Admin: 02/14/19 10:55 Dose: 81 mg Docusate Sodium (Colace -) 100 mg PO BID [facility] Last Admin: 02/14/19 12:40 Dose: Not Given Fluconazole (Diflucan -) 400 mg PO DAILY [facility] Last Admin: 02/14/19 13:43 Dose: 400 mg Folic Acid (Folic Acid -) 1 mg PO DAILY [facility] Last Admin: 02/14/19 10:54 Dose: 1 mg Dextrose/Sodium Chloride (D5-1/2ns -) 1,000 mls @ 42 mls/hr IV ASDIR [facility] Last Admin: 02/14/19 10:50 Dose: Not Given Meropenem 1 gm/ Dextrose 100 mls @ 200 mls/hr IVPB Q8H-IV [facility] Last Admin: 02/14/19 10:49 Dose: 200 mls/hr Levothyroxine Sodium (Synthroid -) 100 mcg PO DAILY@0700 [facility] Last Admin: 02/14/19 06:01 Dose: 100 mcg Multivitamins/Minerals/Vitamin C (Tab-A-Vit -) 1 tab PO DAILY [facility] Last Admin: 02/14/19 10:54 Dose: 1 tab Mupirocin (Bactroban 2% Ointment -) 1 applic TP BID [facility] Last Admin: 02/14/19 10:51 Dose: 1 applic Nystatin (Nystatin Oral Suspension -) 500,000 units PO Q6HPO [facility] Last Admin: 02/14/19 13:38 Dose: 500,000 units Ondansetron HCl (Zofran Injection) 8 mg IVPB Q8H PRN PRN Reason: NAUSEA Pantoprazole Sodium (Protonix Iv) 40 mg IVPB DAILY [facility] Last Admin: 02/14/19 10:46 Dose: 40 mg Laboratory Results - last 24 hr 10/19/19 10/23/19 10/23/19 23:45 06:27 06:27 WBC 0.4 L* RBC 3.27 L Hgb 9.6 L Hct 27.9 L D MCV 85.4 MCH 29.3 MCHC 34.3 RDW 16.6 H Plt Count 73 L MPV 7.3 L Absolute Neuts (auto) 0.0 L Neutrophils % 4.9 L Neutrophils % (Manual) 4.8 L Band Neutrophils % 0.0 Lymphocytes % 88.8 H Lymphocytes % (Manual) 85.6 H* Monocytes % 3.4 L D Monocytes % (Manual) 3 L D Eosinophils % 2.9 D Eosinophils % (Manual) 3.8 D Basophils % 0.0 Basophils % (Manual) 0.0 Myelocytes % (Man) 0 Promyelocytes % (Man) 0 Blast Cells % (Manual) 0 Nucleated RBC % 0 Metamyelocytes 0 Hypochromia 0 Platelet Estimate Decreased Polychromasia 0 Poikilocytosis 1+ Anisocytosis 1+ Microcytosis 1+ Macrocytosis 0 Acanthocytes (Spur) 1+ Schistocytes 1+ Sodium 131 L Potassium 2.9 L* Chloride 100 Carbon Dioxide 25 Anion Gap 6 L BUN 18.1 H Creatinine 0.4 L Est GFR (CKD-EPI)AfAm 110.08 Est GFR (CKD-EPI)NonAf 94.98 Random Glucose 96 Calcium 8.7 Total Bilirubin 0.7 AST 15 ALT 21 Alkaline Phosphatase 61 Total Protein 5.1 L Albumin 2.1 L Stool Occult Blood Blood Type O NEGATIVE Antibody Screen Negative Crossmatch See Detail 02/14/19 12:15 WBC RBC Hgb Hct MCV MCH MCHC RDW Plt Count MPV Absolute Neuts (auto) Neutrophils % Neutrophils % (Manual) Band Neutrophils % Lymphocytes % Lymphocytes % (Manual) Monocytes % Monocytes % (Manual) Eosinophils % Eosinophils % (Manual) Basophils % Basophils % (Manual) Myelocytes % (Man) Promyelocytes % (Man) Blast Cells % (Manual) Nucleated RBC % Metamyelocytes Hypochromia Platelet Estimate Polychromasia Poikilocytosis Anisocytosis Microcytosis Macrocytosis Acanthocytes (Spur) Schistocytes Sodium Potassium Chloride Carbon Dioxide Anion Gap BUN Creatinine Est GFR (CKD-EPI)AfAm Est GFR (CKD-EPI)NonAf Random Glucose Calcium Total Bilirubin AST ALT Alkaline Phosphatase Total Protein Albumin Stool Occult Blood Negative Blood Type Antibody Screen Crossmatch Vital Signs Temperature 98.6 F 02/14/19 14:00 Pulse Rate 82 02/14/19 14:00 Respiratory Rate 20 02/14/19 14:00 Blood Pressure 150/85 02/14/19 14:00 O2 Sat by Pulse Oximetry (%) 94 L 02/13/19 21:00 CC: weakness, some aches /pains ``````````````````` skin--stasis changes of LE's; no rashes; eschar noted on LLE under 1 cm head--NC eyes--anicteric oral--no droop; no thrush seen on tongue abd--soft, NT ext--no edema neuro--asthenic; psycho motor slowing; prone to lapses; not oriented to place and time; able to recognize people and knows names; demeanor is calm ````````````````````````````````````````````` Summ > pancytopenia--multi-factoral; combo of state of infection, use of HU (now stopped); other? (see 1st heme note). PLAN: cont to hold HU as it is not warranted given her counts. > oral thrush--Rx antifungal > HTn--will add Losartan > Nausea--resolved > UTI--Citrobacter; on meropenem > AbnL Chest imaging--? early PNA; Leg Ab is negative; re-check CXR > Low potassium--replenish as needed > Moderate malnutrition--low albumin; and has lost weight 2nd poor PO intake; start Clinimix > Hypothyroid--T4 WNL > Fail thrive--multiple causes; converging to produce state of debility, from which it is uncertain if she can recover ``````````````````````````````````````````` discussed condition & prog w/ family at bedside ~~~~~~~~~~~~~~~~~~~~~~~~~~~~~~~~~~~~ Dr Campbell
[2019-02-14] MEDS ORDERED: KCL 10 MEQ IVPB 10 MEQ/100 ML INFUS.BAG IVPB SCH (17:15)
--- NOTE | 2019-02-14 17:16 | PN ---
Progress Note (short form) - Note Progress Note: Subjective: Patient seen and examined at bedside. No new complaints, no events overnight. Objective: Vital Signs Temperature 98.6 F 02/14/19 14:00 Pulse Rate 82 02/14/19 14:00 Respiratory Rate 20 02/14/19 14:00 Blood Pressure 150/85 02/14/19 14:00 O2 Sat by Pulse Oximetry (%) 94 L 02/13/19 21:00 Physical exam: Gen.: patient found lying in bed. Well appearing. Awake, alert. Lungs: clear to auscultation bilaterally down to the bases. Heart: regular rate and rhythm. S1, S2 heard. No murmurs gallops or rubs heard. Abdomen: soft, nontender, nondistended. Bowel sounds heard. Extremities: no peripheral edema noted. No bruising, swelling, erythema or warmth of extremities noted. neuro: patient A&O x3. Moving all four limbs spontaneously. Active Medications Acetaminophen (Tylenol -) 650 mg PO BID [facility] Last Admin: 02/13/19 10:57 Dose: 650 mg Amino Acids (Prosource No Carb Liquid Pkt) 30 ml PO BID@0800,1730 [facility] Last Admin: 02/13/19 08:49 Dose: 30 ml Amlodipine Besylate (Norvasc -) 2.5 mg PO DAILY [facility] Last Admin: 02/13/19 10:57 Dose: 2.5 mg Aspirin (Ecotrin -) 81 mg PO DAILY [facility] Last Admin: 02/13/19 10:57 Dose: 81 mg Folic Acid (Folic Acid -) 1 mg PO DAILY [facility] Last Admin: 02/13/19 10:57 Dose: 1 mg Dextrose/Sodium Chloride (D5-1/2ns -) 1,000 mls @ 42 mls/hr IV ASDIR [facility] Last Admin: 02/13/19 08:50 Dose: Not Given Meropenem 1 gm/ Dextrose 100 mls @ 200 mls/hr IVPB Q8H-IV [facility] Last Admin: 02/13/19 10:57 Dose: 200 mls/hr Levothyroxine Sodium (Synthroid -) 100 mcg PO DAILY@0700 [facility] Last Admin: 02/13/19 06:01 Dose: 100 mcg Multivitamins/Minerals/Vitamin C (Tab-A-Vit -) 1 tab PO DAILY [facility] Last Admin: 02/13/19 10:57 Dose: 1 tab Mupirocin (Bactroban 2% Ointment -) 1 applic TP BID [facility] Last Admin: 02/13/19 10:57 Dose: 1 applic Ondansetron HCl (Zofran Injection) 8 mg IVPB Q8H PRN PRN Reason: NAUSEA Pantoprazole Sodium (Protonix Iv) 40 mg IVPB DAILY [facility] Last Admin: 02/13/19 10:57 Dose: 40 mg Saliva Substitute (Mouthkote Solution -) 3 applic MM Q4H [facility] Last Admin: 02/13/19 10:58 Dose: 3 applic Tbo-Filgrastim (Granix -) 300 mcg SQ ONCE ONE Stop: 02/13/19 11:36 Home Medications Medication Instructions Recorded Cholecalciferol (Vitamin D3) 1 tab PO DAILY 01/10/19 [Vitamin D3 -] ASA - 162 mg PO DAILY 01/17/19 Alendronate Sodium [Fosamax] 1 tab PO WEEKLY #4 tablet 01/29/19 Cyanocobalamin (Vitamin B-12) 500 mcg PO DAILY #100 tablet 01/29/19 [B-12 Dots] Docusate Sodium [Colace -] 100 mg PO DAILY capsule 01/29/19 Escitalopram Oxalate [Lexapro -] 10 mg PO DAILY tablet 01/29/19 Hydroxyurea [Hydrea 500Mg Capsule 1,000 mg PO TID #100 capsule 01/29/19 -] Levothyroxine [Synthroid -] 100 mcg PO DAILY@0700 tablet 01/29/19 Lisinopril [Prinivil] 10 mg PO BID tablet 01/29/19 Multivitamin [Multiple Vitamins] 1 each PO Q48H #100 tablet 01/29/19 Nebivolol [Bystolic -] 10 mg PO DAILY tab 01/29/19 Olanzapine [Zyprexa -] 2.5 mg PO HS PRN tablet 01/29/19 Magnesium Hydroxide [Milk of 400 mg PO PRN 02/10/19 Magnesia] Ondansetron [Zofran -] 4 mg PO Q8H PRN 02/10/19 Polyethylene Glycol 3350 17 gm PO DAILY 02/10/19 Allergies Allergy/AdvReac Type Severity Reaction Status Date / Time nitrofurantoin Allergy Verified 02/10/19 19:16 [From Macrobid] nitrofurantoin Allergy Verified 02/10/19 19:16 macrocrystalline [From Macrobid] Penicillins Allergy Verified 02/10/19 19:16 CBC, BMP 02/14/19 06:27 02/14/19 06:27 Assessment and plan: The patient is an 83-year-old female with a past medical history of hypertension , hyperthyroidism, hyperparathyroidism and essential thrombocytosis who presented to the emergency department complaining of generalized weakness and SOB. The patient was found to be pancytopenic. #Pancytopenia possibly 2/2 hydrea use vs BM supression from infection -platelets 73 today -WBC .4 again today -UCx growing citrobacter freundii -Hydrea and infection both may be contributing to patient's pancytopenia -holding Hydrea at this time -Will monitor CBC for return of bone marrow function -ID onboard -UTI being treated with meropenem (patient PCN allergic) -dose of granix given yesterday; will give another dose today -patient on merrem iv; will start fluconazole and valtrex daily for prophylaxsis -patient may need BM Bx if pancytopenia continues. Will need to be off of Granix for ~7days -will send flow cytometry in AM #Essential thrombocytosis -Hydrea on hold -monitor CBC
[2019-02-14] MEDS: AMINO ACIDS 4.25%/D5W 1,000 ML IV SCH (18:06)
[2019-02-14] MEDS: ACYCLOVIR INJECTION 250 MG in DEXTROSE 5%-WATER - 100 ML IVPB SCH (20:10)
--- NOTE | 2019-02-14 21:08 | PN ---
Progress Note (short form) - Note Progress Note: Patient seen and examined with Dr. Elaine. Agree with note and plan S: Doing better than yesterday. Headache resolved. Sore throat present but improving O: Last Vital Signs Temp Pulse Resp BP Pulse Ox 98.6 F 82 20 150/85 94 L 02/14/19 14:00 02/14/19 14:00 02/14/19 14:00 02/14/19 14:00 02/14/19 09:00 AFVSS HEENT: Oral thrush in palate, erythematous Cor: RSR, No murmurs, No gallops Lungs: Clear to P&A Abd: Soft, Normal bowel sounds, No organomegaly Ext:No significant edema 02/14/19 06:27 02/14/19 06:27 Current Medications Acetaminophen (Tylenol -) 500 mg PO Q6HPO [facility] Last Admin: 02/14/19 17:00 Dose: 500 mg Amino Acids (Prosource No Carb Liquid Pkt) 30 ml PO BID@0800,1730 [facility] Last Admin: 02/14/19 16:52 Dose: 30 ml Amlodipine Besylate (Norvasc -) 2.5 mg PO DAILY [facility] Last Admin: 02/14/19 10:54 Dose: 2.5 mg Aspirin (Ecotrin -) 81 mg PO DAILY [facility] Last Admin: 02/14/19 10:55 Dose: 81 mg Fluconazole (Diflucan -) 400 mg PO DAILY [facility] Last Admin: 02/14/19 13:43 Dose: 400 mg Folic Acid (Folic Acid -) 1 mg PO DAILY [facility] Last Admin: 02/14/19 10:54 Dose: 1 mg Meropenem 1 gm/ Dextrose 100 mls @ 200 mls/hr IVPB Q8H-IV [facility] Last Admin: 02/14/19 18:21 Dose: 200 mls/hr Acyclovir 250 mg/ Dextrose 105 mls @ 100 mls/hr IVPB Q8H-IV [facility] Amino Acids (Clinimix -) 1,000 mls @ 50 mls/hr IV Q20H [facility] Last Admin: 02/14/19 18:06 Dose: 50 mls/hr Levothyroxine Sodium (Synthroid -) 100 mcg PO DAILY@0700 [facility] Last Admin: 02/14/19 06:01 Dose: 100 mcg Losartan Potassium (Cozaar -) 25 mg PO DAILY [facility] Mupirocin (Bactroban 2% Ointment -) 1 applic TP BID [facility] Last Admin: 02/14/19 10:51 Dose: 1 applic Nystatin (Nystatin Oral Suspension -) 500,000 units PO Q6HPO [facility] Last Admin: 02/14/19 18:06 Dose: 500,000 units Ondansetron HCl (Zofran Injection) 8 mg IVPB Q8H PRN PRN Reason: NAUSEA Pantoprazole Sodium (Protonix -) 20 mg PO DAILY [facility] A/P 83 y/o lady with PMH of HTN, HLD, essential thrombocytosis, Hypothyroidism , CHF , recent admission for worsening gait, shortness of breath, and discharged to [facility]. Now comes in with generalized weakness h/o essential thrombocytosis, on hydrea. Now on hold now with pancytopenia -- ? related to hydrea versus marrow suppression from infection On meropenem/vanco for presumed UTI/pneumonia On neupogen (D3) will continue/ ANC 0.0. On fluconazole and acyclovir. Also nystatin swish and spit due to oral thrush monitor CBC may need BMBx will continue aspirin 81 mg daily for platelets > 50,000 will follow
[2019-02-14] MEDS ORDERED: MAG HYDROX/AL HYDROX/SIMETH 30 ML UNIT-DOSE CUP PO SCH (22:00)
[2019-02-14] MEDS ORDERED: valACYclovir HCL 500 MG TABLET (FP) PO SCH (22:00)
[2019-02-15] MEDS: NYSTATIN 500,000 UNITS/5 ML SUSPENSION PO SCH ×4 (00:41→17:56)
[2019-02-15] MEDS: ACETAMINOPHEN 500 MG TABLET (FP) PO SCH ×4 (00:42→17:56)
[2019-02-15] MEDS: ACYCLOVIR INJECTION 250 MG in DEXTROSE 5%-WATER - 100 ML IVPB SCH ×3 (02:00→17:56)
[2019-02-15] MEDS ORDERED: PT OWN MED DRAWER 7, Y5N ONE ×3 (02:49→17:36)
[2019-02-15] MEDS ORDERED: MEROPENEM 1 GM VIAL (RESTRICTED TO ID) IVPB ONE ×3 (03:00→17:36)
[2019-02-15] MEDS ORDERED: DEXTROSE 5%-WATER 100 ML IVPB ONE ×3 (03:01→17:36)
[2019-02-15] MEDS: MEROPENEM 1 GM in DEXTROSE 5%-WATER 100 ML IVPB SCH ×3 (03:03→17:56)
[2019-02-15] MEDS: LEVOTHYROXINE NA 100 MCG TABLET (FP) PO SCH (06:34)
[2019-02-15 07:56] LABS: HEMATOCRIT 28.2 % (32.4-45.2); HEMOGLOBIN 9.6 GM/dL (10.7-15.3); MCH 29.3 pg (25.7-33.7); MCHC 34.2 g/dl (32.0-36.0); MEAN CELL VOLUME 85.7 fl (80-96); PLATELET COUNT 78 K/MM3 (134-434); RBC 3.29 M/mm3 (3.60-5.2); RDW 16.7 % (11.6-15.6); RETICULOCYTES 1.23 % (0.5-1.5)
[2019-02-15 08:40] LABS: WHITE BLOOD COUNT 0.6 K/mm3 (4.0-10.0)
[2019-02-15 08:57] LABS: BLOOD UREA NITROGEN 17.8 mg/dL (7-18); CALCIUM 9.1 mg/dL (8.5-10.1); CREATININE 0.4 mg/dL (0.55-1.3); MAGNESIUM 1.8 mg/dL (1.8-2.4); POTASSIUM 3.2 mmol/L (3.5-5.1)
[2019-02-15] MEDS: AMINO ACIDS/PROTEIN HYDROLYS 30 ML LIQUID.PKT PO SCH ×2 (10:50→17:56)
[2019-02-15] MEDS: FLUCONAZOLE 100 MG TABLET (UD) PO SCH (10:51)
[2019-02-15] MEDS: FOLIC ACID 1 MG TABLET (FP) PO SCH (10:53)
[2019-02-15] MEDS: MUPIROCIN 2% TOPICAL OINTMENT 22 GM TUBE TP SCH ×2 (10:53→21:47)
[2019-02-15] MEDS: LOSARTAN POTASSIUM 25 MG TABLET PO SCH (10:53)
[2019-02-15] MEDS: PANTOPRAZOLE 20 MG TABLET (FP) PO SCH (10:53)
[2019-02-15] MEDS: ASPIRIN COATED 81 MG TABLET.EC PO SCH (10:53)
[2019-02-15] MEDS: amLODIPine BESYLATE 2.5 MG TABLET (FP) PO SCH (10:53)
--- NOTE | 2019-02-15 11:39 | PN ---
Progress Note (short form) - Note Progress Note: Subjective: Patient seen and examined at bedside. No new complaints, no events overnight. Objective: Vital Signs Temperature 98.7 F 02/15/19 07:25 Pulse Rate 82 02/15/19 07:25 Respiratory Rate 20 02/15/19 07:25 Blood Pressure 152/82 02/15/19 07:25 O2 Sat by Pulse Oximetry (%) 94 L 02/14/19 21:00 Physical exam: Gen.: patient found lying in bed. Well appearing. Awake, alert. Lungs: Crackles heard b/l up to the mid lung redding Heart: regular rate and rhythm. S1, S2 heard. No murmurs gallops or rubs heard. Abdomen: soft, nontender, nondistended. Bowel sounds heard. Extremities: no peripheral edema noted. No bruising, swelling, erythema or warmth of extremities noted. neuro: patient A&O x3. Moving all four limbs spontaneously. Active Medications Acetaminophen (Tylenol -) 650 mg PO BID [facility] Last Admin: 02/13/19 10:57 Dose: 650 mg Amino Acids (Prosource No Carb Liquid Pkt) 30 ml PO BID@0800,1730 [facility] Last Admin: 02/13/19 08:49 Dose: 30 ml Amlodipine Besylate (Norvasc -) 2.5 mg PO DAILY [facility] Last Admin: 02/13/19 10:57 Dose: 2.5 mg Aspirin (Ecotrin -) 81 mg PO DAILY [facility] Last Admin: 02/13/19 10:57 Dose: 81 mg Folic Acid (Folic Acid -) 1 mg PO DAILY [facility] Last Admin: 02/13/19 10:57 Dose: 1 mg Dextrose/Sodium Chloride (D5-1/2ns -) 1,000 mls @ 42 mls/hr IV ASDIR [facility] Last Admin: 02/13/19 08:50 Dose: Not Given Meropenem 1 gm/ Dextrose 100 mls @ 200 mls/hr IVPB Q8H-IV [facility] Last Admin: 02/13/19 10:57 Dose: 200 mls/hr Levothyroxine Sodium (Synthroid -) 100 mcg PO DAILY@0700 [facility] Last Admin: 02/13/19 06:01 Dose: 100 mcg Multivitamins/Minerals/Vitamin C (Tab-A-Vit -) 1 tab PO DAILY [facility] Last Admin: 02/13/19 10:57 Dose: 1 tab Mupirocin (Bactroban 2% Ointment -) 1 applic TP BID [facility] Last Admin: 02/13/19 10:57 Dose: 1 applic Ondansetron HCl (Zofran Injection) 8 mg IVPB Q8H PRN PRN Reason: NAUSEA Pantoprazole Sodium (Protonix Iv) 40 mg IVPB DAILY [facility] Last Admin: 02/13/19 10:57 Dose: 40 mg Saliva Substitute (Mouthkote Solution -) 3 applic MM Q4H [facility] Last Admin: 02/13/19 10:58 Dose: 3 applic Tbo-Filgrastim (Granix -) 300 mcg SQ ONCE ONE Stop: 02/13/19 11:36 Home Medications Medication Instructions Recorded Cholecalciferol (Vitamin D3) 1 tab PO DAILY 01/10/19 [Vitamin D3 -] ASA - 162 mg PO DAILY 01/17/19 Alendronate Sodium [Fosamax] 1 tab PO WEEKLY #4 tablet 01/29/19 Cyanocobalamin (Vitamin B-12) 500 mcg PO DAILY #100 tablet 01/29/19 [B-12 Dots] Docusate Sodium [Colace -] 100 mg PO DAILY capsule 01/29/19 Escitalopram Oxalate [Lexapro -] 10 mg PO DAILY tablet 01/29/19 Hydroxyurea [Hydrea 500Mg Capsule 1,000 mg PO TID #100 capsule 01/29/19 -] Levothyroxine [Synthroid -] 100 mcg PO DAILY@0700 tablet 01/29/19 Lisinopril [Prinivil] 10 mg PO BID tablet 01/29/19 Multivitamin [Multiple Vitamins] 1 each PO Q48H #100 tablet 01/29/19 Nebivolol [Bystolic -] 10 mg PO DAILY tab 01/29/19 Olanzapine [Zyprexa -] 2.5 mg PO HS PRN tablet 01/29/19 Magnesium Hydroxide [Milk of 400 mg PO PRN 02/10/19 Magnesia] Ondansetron [Zofran -] 4 mg PO Q8H PRN 02/10/19 Polyethylene Glycol 3350 17 gm PO DAILY 02/10/19 Allergies Allergy/AdvReac Type Severity Reaction Status Date / Time nitrofurantoin Allergy Verified 02/10/19 19:16 [From Macrobid] nitrofurantoin Allergy Verified 02/10/19 19:16 macrocrystalline [From Macrobid] Penicillins Allergy Verified 02/10/19 19:16 CBC, BMP 02/15/19 06:40 02/15/19 06:40 Assessment and plan: The patient is an 83-year-old female with a past medical history of hypertension , hyperthyroidism, hyperparathyroidism and essential thrombocytosis who presented to the emergency department complaining of generalized weakness and SOB. The patient was found to be pancytopenic. #Pancytopenia possibly 2/2 hydrea use vs BM supression from infection -platelets 78 today -WBC improving to .6 today -UCx growing citrobacter freundii -Hydrea and infection both may be contributing to patient's pancytopenia -holding Hydrea at this time -Will monitor CBC for return of bone marrow function -ID onboard -UTI being treated with meropenem (patient PCN allergic) -dose of granix given yesterday; will give another dose today (4th dose) -patient on merrem iv, fluconazole and valtrex daily for prophylaxsis #Essential thrombocytosis -Hydrea on hold -monitor CBC
[2019-02-15 11:43] LABS: ANISOCYTOSIS 1+; MACROCYTOSIS 0; PLATELET ESTIMATE DECREASED
[2019-02-15] MEDS ORDERED: TBO-FILGRASTIM 300 MCG/0.5 ML DISP.SYRINGE SQ ONE (12:00)
[2019-02-15] MEDS: AMINO ACIDS 4.25%/D5W 1,000 ML IV SCH (14:54)
--- NOTE | 2019-02-15 16:48 | PN ---
Progress Note (short form) - Note Progress Note: no complaints daughter at bedside alert eating poorly intermittently confused Vital Signs Period Temp Pulse Resp BP Sys/Johnson Pulse Ox Last 24 Hr 97.8 F-98.7 F 82-84 20-20 137-155/75-100 94 cor-rrr lungs clear abd soft,nt ext no edema no thrush, few vesicle on her palate unchanged CBC, BMP 02/15/19 06:40 02/15/19 06:40 imp/reccd febrile neutropenia- citrobacter UTI, possible aspiration pneumonia, continue meropenem- day #5-fevers resolved penicillin allergy pancytopenia--?malignancy suspect neutropenia due to hydroxyurea- on hold- neupogen blood cultures negative urine for legionella and pneumococcal antigen negative diflucan and acyclovir added Problem List - Problems (1) Neutropenic sepsis Code(s): A41.9 - SEPSIS, UNSPECIFIED ORGANISM; D70.9 - NEUTROPENIA, UNSPECIFIED (2) Pneumonia Code(s): J18.9 - PNEUMONIA, UNSPECIFIED ORGANISM Qualifiers: Pneumonia type: due to unspecified organism Laterality: bilateral Lung location: unspecified part of lung Qualified Code(s): J18.9 - Pneumonia, unspecified organism (3) UTI (urinary tract infection) Code(s): N39.0 - URINARY TRACT INFECTION, SITE NOT SPECIFIED (4) Penicillin allergy Code(s): Z88.0 - ALLERGY STATUS TO PENICILLIN (5) Essential thrombocytosis Code(s): D47.3 - ESSENTIAL (HEMORRHAGIC) THROMBOCYTHEMIA
--- NOTE | 2019-02-15 18:32 | PN ---
Progress Note (short form) - Note Progress Note: Current Medications Acetaminophen (Tylenol -) 500 mg PO Q6HPO [facility] Last Admin: 02/15/19 17:56 Dose: 500 mg Amino Acids (Prosource No Carb Liquid Pkt) 30 ml PO BID@0800,1730 [facility] Last Admin: 02/15/19 17:56 Dose: 30 ml Amlodipine Besylate (Norvasc -) 2.5 mg PO DAILY [facility] Last Admin: 02/15/19 10:53 Dose: 2.5 mg Aspirin (Ecotrin -) 81 mg PO DAILY [facility] Last Admin: 02/15/19 10:53 Dose: 81 mg Fluconazole (Diflucan -) 400 mg PO DAILY [facility] Last Admin: 02/15/19 10:51 Dose: 400 mg Folic Acid (Folic Acid -) 1 mg PO DAILY [facility] Last Admin: 02/15/19 10:53 Dose: 1 mg Meropenem 1 gm/ Dextrose 100 mls @ 200 mls/hr IVPB Q8H-IV [facility] Last Admin: 02/15/19 17:56 Dose: 200 mls/hr Acyclovir 250 mg/ Dextrose 105 mls @ 100 mls/hr IVPB Q8H-IV [facility] Last Admin: 02/15/19 17:56 Dose: 100 mls/hr Amino Acids (Clinimix -) 1,000 mls @ 50 mls/hr IV Q20H [facility] Last Admin: 02/15/19 14:54 Dose: Not Given Levothyroxine Sodium (Synthroid -) 100 mcg PO DAILY@0700 [facility] Last Admin: 02/15/19 06:34 Dose: 100 mcg Losartan Potassium (Cozaar -) 25 mg PO DAILY [facility] Last Admin: 02/15/19 10:53 Dose: 25 mg Mupirocin (Bactroban 2% Ointment -) 1 applic TP BID [facility] Last Admin: 02/15/19 10:53 Dose: 1 applic Nystatin (Nystatin Oral Suspension -) 500,000 units PO Q6HPO [facility] Last Admin: 02/15/19 17:56 Dose: 500,000 units Ondansetron HCl (Zofran Injection) 8 mg IVPB Q8H PRN PRN Reason: NAUSEA Pantoprazole Sodium (Protonix -) 20 mg PO DAILY [facility] Last Admin: 02/15/19 10:53 Dose: 20 mg Laboratory Results - last 24 hr 10/24/19 10/24/19 06:40 06:40 WBC 0.6 L* RBC 3.29 L Hgb 9.6 L Hct 28.2 L MCV 85.7 MCH 29.3 MCHC 34.2 RDW 16.7 H Plt Count 78 L MPV 7.0 L Neutrophils % (Manual) 7.0 L Band Neutrophils % 0.0 Lymphocytes % (Manual) 74.0 H Monocytes % (Manual) 8 D Eosinophils % (Manual) 4.0 Basophils % (Manual) 1.0 D Myelocytes % (Man) 0 Promyelocytes % (Man) 0 Blast Cells % (Manual) 0 Nucleated RBC % 0 Metamyelocytes 0 Hypochromia 0 Platelet Estimate Decreased Polychromasia 1+ Poikilocytosis 2+ Anisocytosis 1+ Microcytosis 1+ Macrocytosis 0 Acanthocytes (Spur) 2+ Retic Count 1.23 D Sodium 132 L Potassium 3.2 L Chloride 100 Carbon Dioxide 23 Anion Gap 9 BUN 17.8 Creatinine 0.4 L Est GFR (CKD-EPI)AfAm 110.08 Est GFR (CKD-EPI)NonAf 94.98 Random Glucose 106 Calcium 9.1 Magnesium 1.8 Vital Signs Temperature 97.8 F 02/15/19 15:00 Pulse Rate 83 02/15/19 15:00 Respiratory Rate 20 02/15/19 15:00 Blood Pressure 155/75 02/15/19 15:00 O2 Sat by Pulse Oximetry (%) 94 L 02/14/19 21:00 CC: weakness, some coughing ``````````````````` skin--stasis changes of LE's; no rashes; eschar noted on LLE under 1 cm head--NC eyes--anicteric oral--no droop; no thrush seen on tongue abd--soft, distended, NT ext--no edema neuro--asthenic; able to respond, psycho motor slowing; prone to lapses; not oriented to place and time; able to recognize people and knows names; demeanor is calm ````````````````````````````````````````````` Summ > pancytopenia--WBC and PLT still low; multi-factoral; combo of state of infection, use of HU (now stopped); other? (see 1st heme note). PLAN: cont to hold HU as it is not warranted given her counts. > oral thrush--Rx antifungal > HTn--Losartan added to CCB > Nausea--resolved > UTI--Citrobacter; on meropenem > AbnL Chest imaging--? early PNA; Leg Ab is negative; re-check CXR > Low potassium--replenish as needed > Moderate malnutrition--low albumin; and has lost weight 2nd poor PO intake; on Clinimix > Hypothyroid--T4 WNL > Fail thrive--multiple causes; converging to produce state of debility, from which it is uncertain if she can recover ``````````````````````````````````````````` discussed condition & prog w/ family ~~~~~~~~~~~~~~~~~~~~~~~~~~~~~~~~~~~~ Dr Campbell
[2019-02-15] MEDS ORDERED: POTASSIUM CHLORIDE TABS 10 MEQ TABLET.ER (FP) PO ONE (18:33)
--- NOTE | 2019-02-15 21:02 | PN ---
Progress Note (short form) - Note Progress Note: Patient seen and examined Denies any specific complaints AFVSS Cor: RSR, No murmurs, No gallops Lungs: crackles at bases Abd: Soft, Normal bowel sounds, No organomegaly Ext:No significant edema Labs/Meds reviewed A/P 83yo F with PMH of HTN, HLD, essential thrombocytosis, Hypothyroidism , CHF, recent admission for worsening gait, shortness of breath, and discharged to [facility]. Now comes in with generalized weakness h/o essential thrombocytosis, on hydrea. Now on hold now with pancytopenia -- ? related to hydrea versus marrow suppression from infection On meropenem for presumed UTI/pneumonia on neupogen monitor CBC ? atelectasis/ fluid overload. IV fluids stopped. will order incentive spirometry will continue aspirin 81 mg daily for platelets > 50,000 will follow
[2019-02-16] MEDS ORDERED: DEXTROSE 5%-WATER 100 ML IVPB ONE ×3 (00:27→17:05)
[2019-02-16] MEDS ORDERED: MEROPENEM 1 GM VIAL (RESTRICTED TO ID) IVPB ONE ×3 (00:27→17:05)
[2019-02-16] MEDS: ACETAMINOPHEN 500 MG TABLET (FP) PO SCH ×4 (00:35→17:10)
[2019-02-16] MEDS: NYSTATIN 500,000 UNITS/5 ML SUSPENSION PO SCH ×4 (00:36→17:10)
[2019-02-16] MEDS: MEROPENEM 1 GM in DEXTROSE 5%-WATER 100 ML IVPB SCH ×3 (01:39→17:10)
[2019-02-16] MEDS: ACYCLOVIR INJECTION 250 MG in DEXTROSE 5%-WATER - 100 ML IVPB SCH ×3 (02:35→18:32)
[2019-02-16] MEDS: LEVOTHYROXINE NA 100 MCG TABLET (FP) PO SCH (06:16)
[2019-02-16] MEDS: AMINO ACIDS 4.25%/D5W 1,000 ML IV SCH ×3 (06:26→18:32)
[2019-02-16 07:05] LABS: BASO % 0.8 % (0-2.0); EOS % 4.3 % (0-4.5); HEMATOCRIT 27.1 % (32.4-45.2); HEMOGLOBIN 9.3 GM/dL (10.7-15.3); LYMPH % 48.5 % (8-40); MCH 29.2 pg (25.7-33.7); MCHC 34.2 g/dl (32.0-36.0); MEAN CELL VOLUME 85.5 fl (80-96); MEAN PLT VOLUME 7.7 fl (7.5-11.1); MONO % 0.6 % (3.8-10.2); NEUT % 45.8 % (42.8-82.8); PLATELET COUNT 120 K/MM3 (134-434); RBC 3.17 M/mm3 (3.60-5.2); RDW 16.8 % (11.6-15.6)
[2019-02-16 07:27] LABS: WHITE BLOOD COUNT 1.3 K/mm3 (4.0-10.0)
[2019-02-16 08:00] LABS: ALBUMIN 2.2 g/dl (3.4-5.0); BILIRUBIN,TOTAL 0.6 mg/dL (0.2-1); BLOOD UREA NITROGEN 13.5 mg/dL (7-18); CALCIUM 9.1 mg/dL (8.5-10.1); CREATININE 0.4 mg/dL (0.55-1.3); POTASSIUM 3.1 mmol/L (3.5-5.1); TOT PROT 5.1 g/dl (6.4-8.2)
[2019-02-16] MEDS: AMINO ACIDS/PROTEIN HYDROLYS 30 ML LIQUID.PKT PO SCH ×2 (08:02→17:09)
[2019-02-16] MEDS ORDERED: PT OWN MED DRAWER 7, Y5N ONE (09:36)
[2019-02-16] MEDS: KCL 10 MEQ IVPB 10 MEQ/100 ML INFUS.BAG IVPB SCH ×2 (09:44→11:35)
[2019-02-16] MEDS: MUPIROCIN 2% TOPICAL OINTMENT 22 GM TUBE TP SCH ×2 (09:53→21:20)
[2019-02-16] MEDS: ASPIRIN COATED 81 MG TABLET.EC PO SCH (09:54)
[2019-02-16] MEDS: amLODIPine BESYLATE 2.5 MG TABLET (FP) PO SCH (09:54)
[2019-02-16] MEDS: LOSARTAN POTASSIUM 25 MG TABLET PO SCH (09:54)
[2019-02-16] MEDS: FOLIC ACID 1 MG TABLET (FP) PO SCH (09:54)
[2019-02-16] MEDS: PANTOPRAZOLE 20 MG TABLET (FP) PO SCH (09:54)
[2019-02-16] MEDS: FLUCONAZOLE 100 MG TABLET (UD) PO SCH (10:07)
[2019-02-16 11:43] LABS: ANISOCYTOSIS 1+; MACROCYTOSIS 0; OVALOCYTE 1+; PLATELET ESTIMATE DECREASED
--- NOTE | 2019-02-16 13:35 | PN ---
Progress Note (short form) - Note Progress Note: no specific complaints still not eating Vital Signs Period Temp Pulse Resp BP Sys/Johnson Pulse Ox Last 24 Hr 97.8 F-98.2 F 82-88 18-20 142-155/75-86 94 mouth- no thrush, vesicles drying cor-rrr llungs clear abd soft,nt ext no edema CBC, BMP 02/16/19 06:50 02/16/19 06:50 Microbiology 02/10/19 18:53 Blood - Peripheral Venous Blood Culture - Final NO GROWTH AFTER 5 DAYS INCUBATION 02/10/19 18:57 Blood - Peripheral Venous Blood Culture - Final NO GROWTH AFTER 5 DAYS INCUBATION 02/10/19 20:30 Urine - Urine Clean Catch Urine Culture - Final Citrobacter Freundii 02/11/19 23:00 Urine For Antigen Detection Legionella Antigen - Final 02/11/19 23:00 Urine For Antigen Detection Streptococcus pneumoniae Antigen (M - Final imp/reccd febrile neutropenia- UTI, possible pneumonia penicillin allergy pancytopenia--?malignancy suspect neutropenia due to hydroxyurea- on hold- day #6 meropenem counts recovering anc 600 today incentive spirometry suspect can switch to po valtrex in am, mouth improving continue diflucan d/w family at bedside Problem List - Problems (1) Neutropenic sepsis Code(s): A41.9 - SEPSIS, UNSPECIFIED ORGANISM; D70.9 - NEUTROPENIA, UNSPECIFIED (2) Pneumonia Code(s): J18.9 - PNEUMONIA, UNSPECIFIED ORGANISM Qualifiers: Pneumonia type: due to unspecified organism Laterality: bilateral Lung location: unspecified part of lung Qualified Code(s): J18.9 - Pneumonia, unspecified organism (3) UTI (urinary tract infection) Code(s): N39.0 - URINARY TRACT INFECTION, SITE NOT SPECIFIED (4) Penicillin allergy Code(s): Z88.0 - ALLERGY STATUS TO PENICILLIN (5) Essential thrombocytosis Code(s): D47.3 - ESSENTIAL (HEMORRHAGIC) THROMBOCYTHEMIA
[2019-02-16] MEDS ORDERED: TBO-FILGRASTIM 300 MCG/0.5 ML DISP.SYRINGE SQ ONE (13:52)
[2019-02-16] MEDS ORDERED: POTASSIUM CHLORIDE TABS 10 MEQ TABLET.ER (FP) PO ONE (13:54)
--- NOTE | 2019-02-16 14:22 | PN ---
Progress Note (short form) - Note Progress Note: Subjective: Patient seen and examined at bedside. Patient was complaining of nausea earlier , but this has since resolved. Objective: Vital Signs Temperature 98 F 02/16/19 06:00 Pulse Rate 88 02/16/19 06:00 Respiratory Rate 20 02/16/19 09:00 Blood Pressure 142/86 02/16/19 06:00 O2 Sat by Pulse Oximetry (%) 94 L 02/16/19 09:00 Physical exam: Gen.: patient found lying in bed. Well appearing. Awake, alert. Lungs: Crackles heard b/l up to the mid lung redding; improved today Heart: regular rate and rhythm. S1, S2 heard. No murmurs gallops or rubs heard. Abdomen: soft, nontender, nondistended. Bowel sounds heard. Extremities: no peripheral edema noted. No bruising, swelling, erythema or warmth of extremities noted. neuro: patient A&O x3. Moving all four limbs spontaneously. Active Medications Acetaminophen (Tylenol -) 650 mg PO BID [facility] Last Admin: 02/13/19 10:57 Dose: 650 mg Amino Acids (Prosource No Carb Liquid Pkt) 30 ml PO BID@0800,1730 [facility] Last Admin: 02/13/19 08:49 Dose: 30 ml Amlodipine Besylate (Norvasc -) 2.5 mg PO DAILY [facility] Last Admin: 02/13/19 10:57 Dose: 2.5 mg Aspirin (Ecotrin -) 81 mg PO DAILY [facility] Last Admin: 02/13/19 10:57 Dose: 81 mg Folic Acid (Folic Acid -) 1 mg PO DAILY [facility] Last Admin: 02/13/19 10:57 Dose: 1 mg Dextrose/Sodium Chloride (D5-1/2ns -) 1,000 mls @ 42 mls/hr IV ASDIR [facility] Last Admin: 02/13/19 08:50 Dose: Not Given Meropenem 1 gm/ Dextrose 100 mls @ 200 mls/hr IVPB Q8H-IV [facility] Last Admin: 02/13/19 10:57 Dose: 200 mls/hr Levothyroxine Sodium (Synthroid -) 100 mcg PO DAILY@0700 [facility] Last Admin: 02/13/19 06:01 Dose: 100 mcg Multivitamins/Minerals/Vitamin C (Tab-A-Vit -) 1 tab PO DAILY [facility] Last Admin: 02/13/19 10:57 Dose: 1 tab Mupirocin (Bactroban 2% Ointment -) 1 applic TP BID [facility] Last Admin: 02/13/19 10:57 Dose: 1 applic Ondansetron HCl (Zofran Injection) 8 mg IVPB Q8H PRN PRN Reason: NAUSEA Pantoprazole Sodium (Protonix Iv) 40 mg IVPB DAILY [facility] Last Admin: 02/13/19 10:57 Dose: 40 mg Saliva Substitute (Mouthkote Solution -) 3 applic MM Q4H [facility] Last Admin: 02/13/19 10:58 Dose: 3 applic Tbo-Filgrastim (Granix -) 300 mcg SQ ONCE ONE Stop: 02/13/19 11:36 Home Medications Medication Instructions Recorded Cholecalciferol (Vitamin D3) 1 tab PO DAILY 01/10/19 [Vitamin D3 -] ASA - 162 mg PO DAILY 01/17/19 Alendronate Sodium [Fosamax] 1 tab PO WEEKLY #4 tablet 01/29/19 Cyanocobalamin (Vitamin B-12) 500 mcg PO DAILY #100 tablet 01/29/19 [B-12 Dots] Docusate Sodium [Colace -] 100 mg PO DAILY capsule 01/29/19 Escitalopram Oxalate [Lexapro -] 10 mg PO DAILY tablet 01/29/19 Hydroxyurea [Hydrea 500Mg Capsule 1,000 mg PO TID #100 capsule 01/29/19 -] Levothyroxine [Synthroid -] 100 mcg PO DAILY@0700 tablet 01/29/19 Lisinopril [Prinivil] 10 mg PO BID tablet 01/29/19 Multivitamin [Multiple Vitamins] 1 each PO Q48H #100 tablet 01/29/19 Nebivolol [Bystolic -] 10 mg PO DAILY tab 01/29/19 Olanzapine [Zyprexa -] 2.5 mg PO HS PRN tablet 01/29/19 Magnesium Hydroxide [Milk of 400 mg PO PRN 02/10/19 Magnesia] Ondansetron [Zofran -] 4 mg PO Q8H PRN 02/10/19 Polyethylene Glycol 3350 17 gm PO DAILY 02/10/19 Allergies Allergy/AdvReac Type Severity Reaction Status Date / Time nitrofurantoin Allergy Verified 02/10/19 19:16 [From Macrobid] nitrofurantoin Allergy Verified 02/10/19 19:16 macrocrystalline [From Macrobid] Penicillins Allergy Verified 02/10/19 19:16 CBC, BMP 02/16/19 06:50 02/16/19 06:50 Assessment and plan: The patient is an 83-year-old female with a past medical history of hypertension , hyperthyroidism, hyperparathyroidism and essential thrombocytosis who presented to the emergency department complaining of generalized weakness and SOB. The patient was found to be pancytopenic. #Pancytopenia possibly 2/2 hydrea use vs BM supression from infection -platelets 120 today -WBC improving to 1.3 today -ANC 600 -UCx growing citrobacter freundii -Hydrea and infection both may be contributing to patient's pancytopenia -holding Hydrea at this time -Will monitor CBC for return of bone marrow function -ID onboard -UTI being treated with meropenem (patient PCN allergic) -c/w granix daily (5th dose) -patient on merrem iv, fluconazole and valtrex daily for prophylaxsis #Essential thrombocytosis -Hydrea on hold -monitor CBC
--- NOTE | 2019-02-16 17:07 | PN ---
Progress Note (short form) - Note Progress Note: Current Medications Acetaminophen (Tylenol -) 500 mg PO Q6HPO [facility] Last Admin: 02/16/19 11:34 Dose: 500 mg Amino Acids (Prosource No Carb Liquid Pkt) 30 ml PO BID@0800,1730 [facility] Last Admin: 02/16/19 08:02 Dose: 30 ml Amlodipine Besylate (Norvasc -) 2.5 mg PO DAILY [facility] Last Admin: 02/16/19 09:54 Dose: 2.5 mg Aspirin (Ecotrin -) 81 mg PO DAILY [facility] Last Admin: 02/16/19 09:54 Dose: 81 mg Fluconazole (Diflucan -) 100 mg PO DAILY [facility] Last Admin: 02/16/19 10:07 Dose: 100 mg Folic Acid (Folic Acid -) 1 mg PO DAILY [facility] Last Admin: 02/16/19 09:54 Dose: 1 mg Meropenem 1 gm/ Dextrose 100 mls @ 200 mls/hr IVPB Q8H-IV [facility] Last Admin: 02/16/19 09:56 Dose: 200 mls/hr Acyclovir 250 mg/ Dextrose 105 mls @ 100 mls/hr IVPB Q8H-IV [facility] Last Admin: 02/16/19 11:24 Dose: 100 mls/hr Amino Acids (Clinimix -) 1,000 mls @ 50 mls/hr IV Q20H [facility] Last Admin: 02/16/19 08:02 Dose: Not Given Levothyroxine Sodium (Synthroid -) 100 mcg PO DAILY@0700 [facility] Last Admin: 02/16/19 06:16 Dose: 100 mcg Losartan Potassium (Cozaar -) 25 mg PO DAILY [facility] Last Admin: 02/16/19 09:54 Dose: 25 mg Mupirocin (Bactroban 2% Ointment -) 1 applic TP BID [facility] Last Admin: 02/16/19 09:53 Dose: 1 applic Nystatin (Nystatin Oral Suspension -) 500,000 units PO Q6HPO [facility] Last Admin: 02/16/19 11:35 Dose: 500,000 units Pantoprazole Sodium (Protonix -) 20 mg PO DAILY [facility] Last Admin: 02/16/19 09:54 Dose: 20 mg Laboratory Results - last 24 hr 02/16/19 02/16/19 06:50 06:50 WBC 1.3 L* RBC 3.17 L Hgb 9.3 L Hct 27.1 L MCV 85.5 MCH 29.2 MCHC 34.2 RDW 16.8 H Plt Count 120 L D MPV 7.7 Absolute Neuts (auto) 0.6 L Neutrophils % 45.8 D Neutrophils % (Manual) 15.8 L Band Neutrophils % 13.9 Lymphocytes % 48.5 H D Lymphocytes % (Manual) 42.6 H D Monocytes % 0.6 L D Monocytes % (Manual) 7 Eosinophils % 4.3 Eosinophils % (Manual) 3.9 Basophils % 0.8 D Basophils % (Manual) 1.0 Myelocytes % (Man) 0 Promyelocytes % (Man) 0 Blast Cells % (Manual) 0 Nucleated RBC % 0 Metamyelocytes 4 H D Hypochromia 0 Platelet Estimate Decreased Polychromasia 1+ Poikilocytosis 2+ Anisocytosis 1+ Microcytosis 1+ Macrocytosis 0 Spherocytes 1+ Ovalocytes 1+ Saira Cells 2+ Acanthocytes (Spur) 1+ Sodium 133 L Potassium 3.1 L Chloride 99 Carbon Dioxide 29 Anion Gap 5 L BUN 13.5 Creatinine 0.4 L Est GFR (CKD-EPI)AfAm 110.08 Est GFR (CKD-EPI)NonAf 94.98 Random Glucose 102 Calcium 9.1 Total Bilirubin 0.6 AST 14 L ALT 21 Alkaline Phosphatase 66 Total Protein 5.1 L Albumin 2.2 L Vital Signs Temperature 97.7 F 02/16/19 15:00 Pulse Rate 82 02/16/19 15:00 Respiratory Rate 20 02/16/19 15:00 Blood Pressure 147/85 02/16/19 15:00 O2 Sat by Pulse Oximetry (%) 94 L 02/16/19 09:00 CC: weakness, pain in mouth ``````````````````` skin--stasis changes of LE's; no rashes; eschar noted on LLE under 1 cm head--NC eyes--anicteric oral--no droop; no thrush seen on tongue; erosions noted on soft palate abd--soft, distended, NT ext--no edema neuro--asthenic; able to respond, psycho motor slowing; prone to confusional lapses; able to recognize people and knows names; demeanor is calm ````````````````````````````````````````````` Summ > pancytopenia--WBC and PLT still low but improved a bit; 2nd combo of state of infection, use of HU (now stopped). PLAN: cont to hold HU as it is not warranted given her counts. Received granix > oral thrush--on antifungals > HTn--Losartan added to CCB > UTI--Citrobacter; on meropenem > AbnL Chest imaging--repeat CXR shows marking suggesting atelectasis > Low potassium--replenish as needed > Moderate malnutrition--low albumin; and has lost weight 2nd poor PO intake; clinimix stopped 2nd lung "congestion"', will change to D5 > Hypothyroid--T4 WNL > Fail thrive--multiple causes; converging to produce state of debility, from which it is uncertain if she can recover ``````````````````````````````````````````` discussed condition & prog w/ family ~~~~~~~~~~~~~~~~~~~~~~~~~~~~~~~~~~~~ Dr Campbell
[2019-02-16] MEDS ORDERED: MAG HYDROX/AL HYDROX/SIMETH 30 ML UNIT-DOSE CUP PO PRN (17:10)
[2019-02-16] MEDS ORDERED: ONDANSETRON 4 MG/2 ML VIAL IVPUSH ONE (19:45)
[2019-02-16] MEDS: MAG HYDROX/AL HYDROX/SIMETH 30 ML UNIT-DOSE CUP PO SCH (21:21)
[2019-02-17] MEDS ORDERED: MEROPENEM 1 GM VIAL (RESTRICTED TO ID) IVPB ONE ×2 (00:56→09:37)
[2019-02-17] MEDS ORDERED: DEXTROSE 5%-WATER 100 ML IVPB ONE ×2 (00:56→09:37)
[2019-02-17] MEDS: ACETAMINOPHEN 500 MG TABLET (FP) PO SCH ×4 (00:58→17:13)
[2019-02-17] MEDS: NYSTATIN 500,000 UNITS/5 ML SUSPENSION PO SCH ×2 (00:59→06:01)
[2019-02-17] MEDS: MEROPENEM 1 GM in DEXTROSE 5%-WATER 100 ML IVPB SCH ×3 (01:00→18:47)
[2019-02-17] MEDS ORDERED: PT OWN MED DRAWER 7, Y5N ONE ×2 (01:02→09:37)
[2019-02-17] MEDS: ACYCLOVIR INJECTION 250 MG in DEXTROSE 5%-WATER - 100 ML IVPB SCH (01:03)
[2019-02-17] MEDS: MAG HYDROX/AL HYDROX/SIMETH 30 ML UNIT-DOSE CUP PO SCH ×3 (06:00→21:14)
[2019-02-17] MEDS: LEVOTHYROXINE NA 100 MCG TABLET (FP) PO SCH (06:01)
[2019-02-17] MEDS: PANTOPRAZOLE 20 MG TABLET (FP) PO SCH (09:43)
[2019-02-17] MEDS: valACYclovir HCL 500 MG TABLET (FP) PO SCH ×2 (09:43→21:14)
[2019-02-17] MEDS: amLODIPine BESYLATE 2.5 MG TABLET (FP) PO SCH (09:43)
[2019-02-17] MEDS: LOSARTAN POTASSIUM 25 MG TABLET PO SCH (09:43)
[2019-02-17] MEDS: FOLIC ACID 1 MG TABLET (FP) PO SCH (09:43)
[2019-02-17] MEDS: AMINO ACIDS/PROTEIN HYDROLYS 30 ML LIQUID.PKT PO SCH ×2 (09:43→17:13)
[2019-02-17] MEDS: ASPIRIN COATED 81 MG TABLET.EC PO SCH (09:43)
[2019-02-17] MEDS: FLUCONAZOLE 100 MG TABLET (UD) PO SCH (09:45)
[2019-02-17] MEDS: MUPIROCIN 2% TOPICAL OINTMENT 22 GM TUBE TP SCH ×2 (09:46→21:14)
--- NOTE | 2019-02-17 10:38 | PN ---
Progress Note (short form) - Note Progress Note: Covering for Dr Campbell Awake confused Vital Signs - 24 hr 02/17/19 02/17/19 02/17/19 02:00 09:00 10:00 Temperature 98.2 F 97.7 F Pulse Rate 96 H 93 H Respiratory 20 20 20 Rate Blood Pressure 142/56 L 147/82 O2 Sat by Pulse 93 L Oximetry (%) Current Medications Generic Name Dose Route Start Last Admin Trade Name Freq PRN Reason Stop Dose Admin Acetaminophen 500 mg 02/13/19 18:00 02/17/19 17:13 Tylenol - PO 500 mg Q6HPO PAT Administration Al Hydroxide/Mg Hydroxide 15 ml 02/16/19 22:00 02/17/19 13:06 Mylanta Oral Suspension - PO 15 ml TID PAT Administration Amino Acids 30 ml 02/12/19 17:30 02/17/19 17:13 Prosource No Carb Liquid Pkt PO 30 ml BID@0800,1730 PAT Administration Amlodipine Besylate 2.5 mg 02/12/19 10:00 02/17/19 09:43 Norvasc - PO 2.5 mg DAILY PAT Administration Aspirin 81 mg 02/13/19 10:00 02/17/19 09:43 Ecotrin - PO 81 mg DAILY PAT Administration Fluconazole 100 mg 02/16/19 10:00 02/17/19 09:45 Diflucan - PO 100 mg DAILY PAT Administration Folic Acid 1 mg 02/13/19 10:00 02/17/19 09:43 Folic Acid - PO 1 mg DAILY PAT Administration Meropenem 1 gm/ Dextrose 100 mls @ 200 mls/hr 02/11/19 11:00 02/17/19 18:47 IVPB 200 mls/hr Q8H-IV PAT Administration Potassium Chloride 20 meq/ 1,010 mls @ 42 mls/hr 02/17/19 15:00 02/17/19 15: 00 Amino Acids IVPB 42 mls/hr Q24H PAT Administration Levothyroxine Sodium 100 mcg 02/12/19 07:00 02/17/19 06:01 Synthroid - PO 100 mcg DAILY@0700 PAT Administration Losartan Potassium 25 mg 02/15/19 10:00 02/17/19 09:43 Cozaar - PO 25 mg DAILY PAT Administration Mupirocin 1 applic 02/11/19 22:00 02/17/19 09:46 Bactroban 2% Ointment - TP 1 applic BID PAT Administration Pantoprazole Sodium 20 mg 02/15/19 10:00 02/17/19 09:43 Protonix - PO 20 mg DAILY PAT Administration Valacyclovir HCl 1,000 mg 02/17/19 10:00 02/17/19 09:43 Valtrex - PO 1,000 mg BID PAT Administration Laboratory Results - last 24 hr 02/17/19 02/17/19 11:45 11:45 WBC 6.4 RBC 3.32 L Hgb 9.8 L Hct 28.3 L MCV 85.4 MCH 29.5 MCHC 34.6 RDW 16.9 H Plt Count 233 D MPV 7.5 Absolute Neuts (auto) 5.2 Neutrophils % 81.2 D Neutrophils % (Manual) 30.3 L Band Neutrophils % 23.2 Lymphocytes % 16.9 D Lymphocytes % (Manual) 33.3 D Monocytes % 0.3 L Monocytes % (Manual) 2 L Eosinophils % 1.3 Eosinophils % (Manual) 0.0 D Basophils % 0.3 Basophils % (Manual) 0.0 Myelocytes % (Man) 0 Promyelocytes % (Man) 0 Blast Cells % (Manual) 0 Nucleated RBC % 0 Metamyelocytes 4 H Hypochromia 0 Platelet Estimate Normal Platelet Comment Present Polychromasia 0 Poikilocytosis 1+ Anisocytosis 1+ Microcytosis 1+ Macrocytosis 0 Spherocytes 1+ Tear Drop Cells 1+ Acanthocytes (Spur) 1+ Fragmented RBCs 1+ Sodium 133 L Potassium 3.0 L Chloride 97 L Carbon Dioxide 27 Anion Gap 9 BUN 16.4 Creatinine 0.4 L Est GFR (CKD-EPI)AfAm 110.08 Est GFR (CKD-EPI)NonAf 94.98 Random Glucose 105 Calcium 9.1 Weak looking S1 S2 RRR Lungs decreased breath sounds Ronchi+ Abd-soft, NT no edema A/P UTI-- on antibiotics Neutropenia-- resolved hypokalemia-- replace potassium Failure to thrive continue with meds Problem List - Problems (1) Altered mental status Code(s): R41.82 - ALTERED MENTAL STATUS, UNSPECIFIED Qualifiers: Altered mental status type: disorientation Qualified Code(s): R41.0 - Disorientation, unspecified (2) Essential thrombocytosis Code(s): D47.3 - ESSENTIAL (HEMORRHAGIC) THROMBOCYTHEMIA (3) Neutropenic sepsis Code(s): A41.9 - SEPSIS, UNSPECIFIED ORGANISM; D70.9 - NEUTROPENIA, UNSPECIFIED (4) Sepsis Code(s): A41.9 - SEPSIS, UNSPECIFIED ORGANISM Qualifiers: Sepsis type: sepsis due to unspecified organism Sepsis acute organ dysfunction status: without acute organ dysfunction Qualified Code(s): A41.9 - Sepsis, unspecified organism (5) UTI (urinary tract infection) Code(s): N39.0 - URINARY TRACT INFECTION, SITE NOT SPECIFIED (6) Cognitive dysfunction associated with depression Code(s): F06.8 - OTH MENTAL DISORDERS DUE TO KNOWN PHYSIOLOGICAL CONDITION; F32.9 - MAJOR DEPRESSIVE DISORDER, SINGLE EPISODE, UNSPECIFIED
[2019-02-17 12:40] LABS: BASO % 0.3 % (0-2.0); EOS % 1.3 % (0-4.5); HEMATOCRIT 28.3 % (32.4-45.2); HEMOGLOBIN 9.8 GM/dL (10.7-15.3); LYMPH % 16.9 % (8-40); MCH 29.5 pg (25.7-33.7); MCHC 34.6 g/dl (32.0-36.0); MEAN CELL VOLUME 85.4 fl (80-96); MEAN PLT VOLUME 7.5 fl (7.5-11.1); MONO % 0.3 % (3.8-10.2); NEUT % 81.2 % (42.8-82.8); PLATELET COUNT 233 K/MM3 (134-434); RBC 3.32 M/mm3 (3.60-5.2); RDW 16.9 % (11.6-15.6); WHITE BLOOD COUNT 6.4 K/mm3 (4.0-10.0)
[2019-02-17 13:00] LABS: BLOOD UREA NITROGEN 16.4 mg/dL (7-18); CALCIUM 9.1 mg/dL (8.5-10.1); CREATININE 0.4 mg/dL (0.55-1.3)
[2019-02-17] MEDS: AMINO ACIDS 4.25%/D5W 1,000 ML IV SCH (13:06)
--- NOTE | 2019-02-17 13:25 | PN ---
Progress Note (short form) - Note Progress Note: Patient seen and examined Denies any specific complaints AFVSS Cor: RSR, No murmurs, No gallops Lungs: crackles at bases Abd: Soft, Normal bowel sounds, No organomegaly Ext:No significant edema Labs/Meds reviewed A/P 83yo F with PMH of HTN, HLD, essential thrombocytosis, Hypothyroidism , CHF, recent admission for worsening gait, shortness of breath, and discharged to [facility]. Now comes in with generalized weakness h/o essential thrombocytosis, on hydrea. Now on hold now with pancytopenia -- ? related to hydrea versus marrow suppression from infection On meropenem for presumed UTI/pneumonia on neupogen monitor CBC ? atelectasis/ fluid overload. IV fluids stopped. will order incentive spirometry will continue aspirin 81 mg daily for platelets > 50,000 will follow
[2019-02-17] MEDS: POTASSIUM CHLORIDE 20 MEQ in AMINO ACIDS 4.25%/D5W 1,000 ML IVPB SCH (15:00)
[2019-02-17] MEDS: KCL 10 MEQ IVPB 10 MEQ/100 ML INFUS.BAG IVPB SCH ×2 (15:00→16:38)
[2019-02-17 15:31] LABS: ANISOCYTOSIS 1+; MACROCYTOSIS 0; PLATELET ESTIMATE NORMAL; TEAR DROP CELLS 1+
--- NOTE | 2019-02-17 16:22 | PN ---
Progress Note, Physician History of Present Illness: AWAKE, ALERT OFFERS NO COMPLAINTS AFEBRILE WBC IMPROVED TOLERATING ANTIBIOTICS - Current Medication List Current Medications: Active Medications Acetaminophen (Tylenol -) 500 mg PO Q6HPO [facility] Last Admin: 02/17/19 13:06 Dose: 500 mg Al Hydroxide/Mg Hydroxide (Mylanta Oral Suspension -) 15 ml PO TID [facility] Last Admin: 02/17/19 13:06 Dose: 15 ml Amino Acids (Prosource No Carb Liquid Pkt) 30 ml PO BID@0800,1730 [facility] Last Admin: 02/17/19 09:43 Dose: 30 ml Amlodipine Besylate (Norvasc -) 2.5 mg PO DAILY [facility] Last Admin: 02/17/19 09:43 Dose: 2.5 mg Aspirin (Ecotrin -) 81 mg PO DAILY [facility] Last Admin: 02/17/19 09:43 Dose: 81 mg Fluconazole (Diflucan -) 100 mg PO DAILY [facility] Last Admin: 02/17/19 09:45 Dose: 100 mg Folic Acid (Folic Acid -) 1 mg PO DAILY [facility] Last Admin: 02/17/19 09:43 Dose: 1 mg Meropenem 1 gm/ Dextrose 100 mls @ 200 mls/hr IVPB Q8H-IV [facility] Last Admin: 02/17/19 09:43 Dose: 200 mls/hr Potassium Chloride 20 meq/ (Amino Acids) 1,010 mls @ 42 mls/hr IVPB Q24H [facility] Last Admin: 02/17/19 15:00 Dose: 42 mls/hr Levothyroxine Sodium (Synthroid -) 100 mcg PO DAILY@0700 [facility] Last Admin: 02/17/19 06:01 Dose: 100 mcg Losartan Potassium (Cozaar -) 25 mg PO DAILY [facility] Last Admin: 02/17/19 09:43 Dose: 25 mg Mupirocin (Bactroban 2% Ointment -) 1 applic TP BID [facility] Last Admin: 02/17/19 09:46 Dose: 1 applic Pantoprazole Sodium (Protonix -) 20 mg PO DAILY [facility] Last Admin: 02/17/19 09:43 Dose: 20 mg Valacyclovir HCl (Valtrex -) 1,000 mg PO BID [facility] Last Admin: 02/17/19 09:43 Dose: 1,000 mg - Objective Vital Signs: Vital Signs Temperature 98.1 F 02/17/19 15:00 Pulse Rate 92 H 02/17/19 15:00 Respiratory Rate 20 02/17/19 15:00 Blood Pressure 136/78 02/17/19 15:00 O2 Sat by Pulse Oximetry (%) 93 L 02/17/19 09:00 Constitutional: Yes: No Distress Cardiovascular: Yes: Regular Rate and Rhythm, S1, S2 Respiratory: Yes: CTA Bilaterally Gastrointestinal: Yes: Normal Bowel Sounds, Soft Labs: CBC, BMP 02/17/19 11:45 02/17/19 11:45 INR, PTT INR 1.30 (0.83-1.09) H 02/10/19 18:57 Assessment/Plan FEBRILE NEUTROPENIA RESOLVED CITROBACTER UTI ANTIBIOTIC ALLERGIES CONTINUE MEROPENEM
--- NOTE | 2019-02-17 20:06 | PN ---
Progress Note (short form) - Note Progress Note: Patient seen in follow up. No new complaints. No significant events overnight. Inpatient Meds reviewed. Current Medications Acetaminophen (Tylenol -) 500 mg PO Q6HPO [facility] Last Admin: 02/17/19 17:13 Dose: 500 mg Al Hydroxide/Mg Hydroxide (Mylanta Oral Suspension -) 15 ml PO TID [facility] Last Admin: 02/17/19 13:06 Dose: 15 ml Amino Acids (Prosource No Carb Liquid Pkt) 30 ml PO BID@0800,1730 [facility] Last Admin: 02/17/19 17:13 Dose: 30 ml Amlodipine Besylate (Norvasc -) 2.5 mg PO DAILY [facility] Last Admin: 02/17/19 09:43 Dose: 2.5 mg Aspirin (Ecotrin -) 81 mg PO DAILY [facility] Last Admin: 02/17/19 09:43 Dose: 81 mg Fluconazole (Diflucan -) 100 mg PO DAILY [facility] Last Admin: 02/17/19 09:45 Dose: 100 mg Folic Acid (Folic Acid -) 1 mg PO DAILY [facility] Last Admin: 02/17/19 09:43 Dose: 1 mg Meropenem 1 gm/ Dextrose 100 mls @ 200 mls/hr IVPB Q8H-IV [facility] Last Admin: 02/17/19 18:47 Dose: 200 mls/hr Potassium Chloride 20 meq/ (Amino Acids) 1,010 mls @ 42 mls/hr IVPB Q24H [facility] Last Admin: 02/17/19 15:00 Dose: 42 mls/hr Levothyroxine Sodium (Synthroid -) 100 mcg PO DAILY@0700 [facility] Last Admin: 02/17/19 06:01 Dose: 100 mcg Losartan Potassium (Cozaar -) 25 mg PO DAILY [facility] Last Admin: 02/17/19 09:43 Dose: 25 mg Mupirocin (Bactroban 2% Ointment -) 1 applic TP BID [facility] Last Admin: 02/17/19 09:46 Dose: 1 applic Pantoprazole Sodium (Protonix -) 20 mg PO DAILY [facility] Last Admin: 02/17/19 09:43 Dose: 20 mg Valacyclovir HCl (Valtrex -) 1,000 mg PO BID [facility] Last Admin: 02/17/19 09:43 Dose: 1,000 mg On Examination: Last Vital Signs Temp Pulse Resp BP Pulse Ox 98.4 F 95 H 20 154/80 93 L 02/17/19 17:09 02/17/19 17:09 02/17/19 17:09 02/17/19 17:09 02/17/19 09:00 General: In no acute distress, lying comfortably in bed. Extremities: No pallor or icterus. No pedal edema. No palpable lymphadenopathy. CVS: S1, S2, regular, no gallop or murmur. Chest: good air entry bilaterally, clear Abdomen: Non-distended, non-tender, no palpable organomegaly. Neuro: Alert, non-focal, confused, as at baseline.. Labs: CBC, BMP 02/17/19 11:45 02/17/19 11:45 Assessment. Known ET, presented to the emergency department complaining of generalized weakness and SOB approximately 1 week ago, with new pancytopenia, likely attributable to HU toxicity. Now held, and with G-CSF support counts are recovering. Positive urin culture - ID following - antibiotics as per their recommendations.
[2019-02-18] MEDS: ACETAMINOPHEN 500 MG TABLET (FP) PO SCH ×4 (00:40→17:21)
[2019-02-18] MEDS ORDERED: DEXTROSE 5%-WATER 100 ML IVPB ONE (01:14)
[2019-02-18] MEDS ORDERED: MEROPENEM 1 GM VIAL (RESTRICTED TO ID) IVPB ONE (01:14)
[2019-02-18] MEDS: MEROPENEM 1 GM in DEXTROSE 5%-WATER 100 ML IVPB SCH (01:41)
[2019-02-18] MEDS: MAG HYDROX/AL HYDROX/SIMETH 30 ML UNIT-DOSE CUP PO SCH ×3 (06:29→21:18)
[2019-02-18] MEDS: LEVOTHYROXINE NA 100 MCG TABLET (FP) PO SCH (06:30)
[2019-02-18 07:04] LABS: BASO % 0.3 % (0-2.0); EOS % 0.7 % (0-4.5); HEMATOCRIT 27.4 % (32.4-45.2); HEMOGLOBIN 9.5 GM/dL (10.7-15.3); LYMPH % 16.1 % (8-40); MCH 29.4 pg (25.7-33.7); MCHC 34.8 g/dl (32.0-36.0); MEAN CELL VOLUME 84.7 fl (80-96); MEAN PLT VOLUME 7.7 fl (7.5-11.1); MONO % 0.8 % (3.8-10.2); NEUT % 82.1 % (42.8-82.8); PLATELET COUNT 291 K/MM3 (134-434); RBC 3.23 M/mm3 (3.60-5.2); RDW 16.6 % (11.6-15.6); WHITE BLOOD COUNT 11.9 K/mm3 (4.0-10.0)
[2019-02-18 07:27] LABS: BLOOD UREA NITROGEN 22.2 mg/dL (7-18); CALCIUM 9.2 mg/dL (8.5-10.1); CREATININE 0.5 mg/dL (0.55-1.3); POTASSIUM 3.5 mmol/L (3.5-5.1)
--- NOTE | 2019-02-18 09:35 | PN ---
Progress Note (short form) - Note Progress Note: Covering for Dr Campbell Awake confused Vital Signs - 24 hr 02/17/19 02/17/19 02/17/19 10:00 15:00 17:09 Temperature 97.7 F 98.1 F 98.4 F Pulse Rate 93 H 92 H 95 H Respiratory 20 20 20 Rate Blood Pressure 147/82 136/78 154/80 02/18/19 06:26 Temperature 97.6 F Pulse Rate 84 Respiratory 20 Rate Blood Pressure 119/68 Current Medications Generic Name Dose Route Start Last Admin Trade Name Freq PRN Reason Stop Dose Admin Acetaminophen 500 mg 02/13/19 18:00 02/18/19 06:29 Tylenol - PO 500 mg Q6HPO PAT Administration Al Hydroxide/Mg Hydroxide 15 ml 02/16/19 22:00 02/18/19 06:29 Mylanta Oral Suspension - PO 15 ml TID PAT Administration Amino Acids 30 ml 02/12/19 17:30 02/17/19 17:13 Prosource No Carb Liquid Pkt PO 30 ml BID@0800,1730 PAT Administration Amlodipine Besylate 2.5 mg 02/12/19 10:00 02/17/19 09:43 Norvasc - PO 2.5 mg DAILY PAT Administration Aspirin 81 mg 02/13/19 10:00 02/17/19 09:43 Ecotrin - PO 81 mg DAILY PAT Administration Fluconazole 100 mg 02/16/19 10:00 02/17/19 09:45 Diflucan - PO 100 mg DAILY PAT Administration Folic Acid 1 mg 02/13/19 10:00 02/17/19 09:43 Folic Acid - PO 1 mg DAILY PAT Administration Meropenem 1 gm/ Dextrose 100 mls @ 200 mls/hr 02/11/19 11:00 02/18/19 01:41 IVPB 200 mls/hr Q8H-IV PAT Administration Potassium Chloride 20 meq/ 1,010 mls @ 42 mls/hr 02/17/19 15:00 02/17/19 15: 00 Amino Acids IVPB 42 mls/hr Q24H PAT Administration Levothyroxine Sodium 100 mcg 02/12/19 07:00 02/18/19 06:30 Synthroid - PO 100 mcg DAILY@0700 PAT Administration Losartan Potassium 25 mg 02/15/19 10:00 10/26/19 09:43 Cozaar - PO 25 mg DAILY PAT Administration Mupirocin 1 applic 02/11/19 22:00 02/17/19 21:14 Bactroban 2% Ointment - TP 1 applic BID PAT Administration Pantoprazole Sodium 20 mg 02/15/19 10:00 02/17/19 09:43 Protonix - PO 20 mg DAILY PAT Administration Valacyclovir HCl 1,000 mg 02/17/19 10:00 02/17/19 21:14 Valtrex - PO 1,000 mg BID PAT Administration Laboratory Results - last 24 hr 02/17/19 02/17/19 02/18/19 11:45 11:45 05:31 WBC 6.4 11.9 H RBC 3.32 L 3.23 L Hgb 9.8 L 9.5 L Hct 28.3 L 27.4 L MCV 85.4 84.7 MCH 29.5 29.4 MCHC 34.6 34.8 RDW 16.9 H 16.6 H Plt Count 233 D 291 D MPV 7.5 7.7 Absolute Neuts (auto) 5.2 9.7 H Neutrophils % 81.2 D 82.1 Neutrophils % (Manual) 30.3 L Band Neutrophils % 23.2 Lymphocytes % 16.9 D 16.1 Lymphocytes % (Manual) 33.3 D Monocytes % 0.3 L 0.8 L D Monocytes % (Manual) 2 L Eosinophils % 1.3 0.7 Eosinophils % (Manual) 0.0 D Basophils % 0.3 0.3 Basophils % (Manual) 0.0 Myelocytes % (Man) 0 Promyelocytes % (Man) 0 Blast Cells % (Manual) 0 Nucleated RBC % 0 0 Metamyelocytes 4 H Hypochromia 0 Platelet Estimate Normal Platelet Comment Present Polychromasia 0 Poikilocytosis 1+ Anisocytosis 1+ Microcytosis 1+ Macrocytosis 0 Spherocytes 1+ Tear Drop Cells 1+ Acanthocytes (Spur) 1+ Fragmented RBCs 1+ Sodium 133 L Potassium 3.0 L Chloride 97 L Carbon Dioxide 27 Anion Gap 9 BUN 16.4 Creatinine 0.4 L Est GFR (CKD-EPI)AfAm 110.08 Est GFR (CKD-EPI)NonAf 94.98 Random Glucose 105 Calcium 9.1 02/18/19 05:31 WBC RBC Hgb Hct MCV MCH MCHC RDW Plt Count MPV Absolute Neuts (auto) Neutrophils % Neutrophils % (Manual) Band Neutrophils % Lymphocytes % Lymphocytes % (Manual) Monocytes % Monocytes % (Manual) Eosinophils % Eosinophils % (Manual) Basophils % Basophils % (Manual) Myelocytes % (Man) Promyelocytes % (Man) Blast Cells % (Manual) Nucleated RBC % Metamyelocytes Hypochromia Platelet Estimate Platelet Comment Polychromasia Poikilocytosis Anisocytosis Microcytosis Macrocytosis Spherocytes Tear Drop Cells Acanthocytes (Spur) Fragmented RBCs Sodium 133 L Potassium 3.5 Chloride 98 Carbon Dioxide 29 Anion Gap 7 L BUN 22.2 H Creatinine 0.5 L Est GFR (CKD-EPI)AfAm 102.29 Est GFR (CKD-EPI)NonAf 88.25 Random Glucose 93 Calcium 9.2 Weak looking periorbital edema S1 S2 RRR Lungs decreased breath sounds Ronchi+ Abd-soft, NT no edema A/P UTI-- on antibiotics Neutropenia-- resolved -- dc precautions hypokalemia-- replace potassium Failure to thrive continue with meds assist with feeding senna for constipation Problem List - Problems (1) Altered mental status Code(s): R41.82 - ALTERED MENTAL STATUS, UNSPECIFIED Qualifiers: Altered mental status type: disorientation Qualified Code(s): R41.0 - Disorientation, unspecified (2) Essential thrombocytosis Code(s): D47.3 - ESSENTIAL (HEMORRHAGIC) THROMBOCYTHEMIA (3) Neutropenic sepsis Code(s): A41.9 - SEPSIS, UNSPECIFIED ORGANISM; D70.9 - NEUTROPENIA, UNSPECIFIED (4) Sepsis Code(s): A41.9 - SEPSIS, UNSPECIFIED ORGANISM Qualifiers: Sepsis type: sepsis due to unspecified organism Sepsis acute organ dysfunction status: without acute organ dysfunction Qualified Code(s): A41.9 - Sepsis, unspecified organism (5) UTI (urinary tract infection) Code(s): N39.0 - URINARY TRACT INFECTION, SITE NOT SPECIFIED (6) Cognitive dysfunction associated with depression Code(s): F06.8 - OTH MENTAL DISORDERS DUE TO KNOWN PHYSIOLOGICAL CONDITION; F32.9 - MAJOR DEPRESSIVE DISORDER, SINGLE EPISODE, UNSPECIFIED
--- NOTE | 2019-02-18 09:53 | PN ---
Progress Note, Physician History of Present Illness: AWAKE BUT LETHARGIC OFFERS NO COMPLAINTS DENIES DYSURIA OR LEG PAIN ABLE TO SWALLOW VALTREX AFEBRILE WBC IMPROVED - Current Medication List Current Medications: Active Medications Acetaminophen (Tylenol -) 500 mg PO Q6HPO [facility] Last Admin: 02/18/19 06:29 Dose: 500 mg Al Hydroxide/Mg Hydroxide (Mylanta Oral Suspension -) 15 ml PO TID [facility] Last Admin: 02/18/19 06:29 Dose: 15 ml Amino Acids (Prosource No Carb Liquid Pkt) 30 ml PO BID@0800,1730 [facility] Last Admin: 02/17/19 17:13 Dose: 30 ml Amlodipine Besylate (Norvasc -) 2.5 mg PO DAILY [facility] Last Admin: 02/17/19 09:43 Dose: 2.5 mg Aspirin (Ecotrin -) 81 mg PO DAILY [facility] Last Admin: 02/17/19 09:43 Dose: 81 mg Fluconazole (Diflucan -) 100 mg PO DAILY [facility] Last Admin: 02/17/19 09:45 Dose: 100 mg Folic Acid (Folic Acid -) 1 mg PO DAILY [facility] Last Admin: 02/17/19 09:43 Dose: 1 mg Meropenem 1 gm/ Dextrose 100 mls @ 200 mls/hr IVPB Q8H-IV [facility] Last Admin: 02/18/19 01:41 Dose: 200 mls/hr Potassium Chloride 20 meq/ (Amino Acids) 1,010 mls @ 42 mls/hr IVPB Q24H [facility] Last Admin: 02/17/19 15:00 Dose: 42 mls/hr Levothyroxine Sodium (Synthroid -) 100 mcg PO DAILY@0700 [facility] Last Admin: 02/18/19 06:30 Dose: 100 mcg Losartan Potassium (Cozaar -) 25 mg PO DAILY [facility] Last Admin: 02/17/19 09:43 Dose: 25 mg Mupirocin (Bactroban 2% Ointment -) 1 applic TP BID [facility] Last Admin: 02/17/19 21:14 Dose: 1 applic Pantoprazole Sodium (Protonix -) 20 mg PO DAILY [facility] Last Admin: 02/17/19 09:43 Dose: 20 mg Senna (Senna -) 1 tab PO BID [facility] Valacyclovir HCl (Valtrex -) 1,000 mg PO BID [facility] Last Admin: 02/17/19 21:14 Dose: 1,000 mg - Objective Vital Signs: Vital Signs Temperature 97.6 F 02/18/19 06:26 Pulse Rate 84 02/18/19 06:26 Respiratory Rate 20 02/18/19 06:26 Blood Pressure 119/68 02/18/19 06:26 O2 Sat by Pulse Oximetry (%) 93 L 02/17/19 09:00 Constitutional: Yes: No Distress Eyes: Yes: Conjunctiva Clear Cardiovascular: Yes: Regular Rate and Rhythm, S1, S2 Respiratory: Yes: CTA Bilaterally Gastrointestinal: Yes: Normal Bowel Sounds, Soft. No: Tenderness Extremities: Yes: Other (+ERYTHEMA L PRETIBIAL AREA) Edema: No Labs: CBC, BMP 02/18/19 05:31 02/18/19 05:31 INR, PTT INR 1.30 (0.83-1.09) H 02/10/19 18:57 Assessment/Plan FEBRILE NEUTROPENIA RESOLVED CITROBACTER UTI ANTIBIOTIC ALLERGIES D/C MEROPENEM SUBSTITUTE PO LEVAQUIN X 48HR D/C NEUTROPENIC PRECAUTIONS
[2019-02-18] MEDS ORDERED: PT OWN MED DRAWER 7, Y5N ONE (10:16)
[2019-02-18] MEDS: amLODIPine BESYLATE 2.5 MG TABLET (FP) PO SCH (10:19)
[2019-02-18] MEDS: ASPIRIN COATED 81 MG TABLET.EC PO SCH (10:19)
[2019-02-18] MEDS: AMINO ACIDS/PROTEIN HYDROLYS 30 ML LIQUID.PKT PO SCH ×2 (10:19→17:21)
[2019-02-18] MEDS: SENNOSIDES 8.6MG TABLET (FP) PO SCH ×2 (10:19→21:18)
[2019-02-18] MEDS: PANTOPRAZOLE 20 MG TABLET (FP) PO SCH (10:19)
[2019-02-18] MEDS: valACYclovir HCL 500 MG TABLET (FP) PO SCH ×2 (10:19→21:18)
[2019-02-18] MEDS: LOSARTAN POTASSIUM 25 MG TABLET PO SCH (10:19)
[2019-02-18] MEDS: FLUCONAZOLE 100 MG TABLET (UD) PO SCH (10:19)
[2019-02-18] MEDS: FOLIC ACID 1 MG TABLET (FP) PO SCH (10:19)
[2019-02-18] MEDS: MUPIROCIN 2% TOPICAL OINTMENT 22 GM TUBE TP SCH ×2 (10:20→21:18)
[2019-02-18 11:57] LABS: ANISOCYTOSIS 2+; MACROCYTOSIS 1+; OVALOCYTE 1+; PLATELET ESTIMATE NORMAL; TEAR DROP CELLS 1+
--- NOTE | 2019-02-18 12:58 | PN ---
Progress Note (short form) - Note Progress Note: Patient seen in follow up. No new complaints. No significant events overnight. Inpatient Meds reviewed. CBC, [facility] 02/18/19 05:31 02/18/19 05:31 On Examination: CBC, [facility] 02/18/19 05:31 02/18/19 05:31 General: In no acute distress, lying comfortably in bed. Extremities: No pallor or icterus. No pedal edema. No palpable lymphadenopathy. CVS: S1, S2, regular, no gallop or murmur. Chest: good air entry bilaterally, clear Abdomen: Non-distended, non-tender, no palpable organomegaly. Neuro: Alert, non-focal, confused, as at baseline.. Labs: CBC, [facility] 02/18/19 05:31 02/18/19 05:31 Assessment. Known ET, presented to the emergency department complaining of generalized weakness and SOB approximately 1 week ago, with new pancytopenia, likely attributable to HU toxicity. Now held, and with G-CSF support - counts are recovering. Not neutropenic today. Positive urine culture - ID following - antibiotics as per their recommendations. Can consider discharge planning. Will need to re-institute HU prior to discharge - would suggest dose of HU 500 mgs alternate days, with close follow up for dose titration as outpatient.
[2019-02-18] MEDS: POTASSIUM CHLORIDE 20 MEQ in AMINO ACIDS 4.25%/D5W 1,000 ML IVPB SCH (14:12)
[2019-02-19] MEDS: ACETAMINOPHEN 500 MG TABLET (FP) PO SCH ×5 (00:40→23:00)
[2019-02-19] MEDS: MAG HYDROX/AL HYDROX/SIMETH 30 ML UNIT-DOSE CUP PO SCH ×3 (06:18→22:52)
[2019-02-19] MEDS: LEVOTHYROXINE NA 100 MCG TABLET (FP) PO SCH (06:18)
[2019-02-19 06:56] LABS: BASO % 0.6 % (0-2.0); EOS % 0.5 % (0-4.5); HEMATOCRIT 28.1 % (32.4-45.2); HEMOGLOBIN 9.4 GM/dL (10.7-15.3); LYMPH % 12.8 % (8-40); MCH 28.6 pg (25.7-33.7); MCHC 33.5 g/dl (32.0-36.0); MEAN CELL VOLUME 85.5 fl (80-96); MEAN PLT VOLUME 7.6 fl (7.5-11.1); MONO % 1.4 % (3.8-10.2); NEUT % 84.7 % (42.8-82.8); PLATELET COUNT 365 K/MM3 (134-434); RBC 3.29 M/mm3 (3.60-5.2); RDW 17.1 % (11.6-15.6); WHITE BLOOD COUNT 17.1 K/mm3 (4.0-10.0)
[2019-02-19 07:18] LABS: ALBUMIN 2.4 g/dl (3.4-5.0); BILIRUBIN,TOTAL 0.4 mg/dL (0.2-1); BLOOD UREA NITROGEN 24.1 mg/dL (7-18); CREATININE 0.4 mg/dL (0.55-1.3); POTASSIUM 3.3 mmol/L (3.5-5.1); TOT PROT 5.6 g/dl (6.4-8.2)
[2019-02-19] MEDS: AMINO ACIDS/PROTEIN HYDROLYS 30 ML LIQUID.PKT PO SCH (07:53)
[2019-02-19] MEDS ORDERED: PT OWN MED DRAWER 7, Y5N ONE (10:28)
[2019-02-19] MEDS: amLODIPine BESYLATE 2.5 MG TABLET (FP) PO SCH (10:36)
[2019-02-19] MEDS: valACYclovir HCL 500 MG TABLET (FP) PO SCH ×2 (10:36→22:52)
[2019-02-19] MEDS: SENNOSIDES 8.6MG TABLET (FP) PO SCH ×2 (10:36→22:52)
[2019-02-19] MEDS: ASPIRIN COATED 81 MG TABLET.EC PO SCH (10:36)
[2019-02-19] MEDS: LOSARTAN POTASSIUM 25 MG TABLET PO SCH (10:36)
[2019-02-19] MEDS: FOLIC ACID 1 MG TABLET (FP) PO SCH (10:36)
[2019-02-19] MEDS: MUPIROCIN 2% TOPICAL OINTMENT 22 GM TUBE TP SCH ×2 (10:37→22:53)
[2019-02-19] MEDS: PANTOPRAZOLE 20 MG TABLET (FP) PO SCH (10:37)
[2019-02-19] MEDS: FLUCONAZOLE 100 MG TABLET (UD) PO SCH (10:37)
--- NOTE | 2019-02-19 11:34 | PN ---
Progress Note (short form) - Note Progress Note: alert oob in chair Vital Signs Period Temp Pulse Resp BP Sys/Johnson Pulse Ox Last 24 Hr 98.1 F-99.1 F 88-102 20-23 124-155/75-86 healing ulcers on palate cor-rrr lungs decrased bs at bases abd soft,nt ext no edema +venous stasis CBC, BMP 02/19/19 06:23 02/19/19 06:23 Microbiology 02/10/19 18:53 Blood - Peripheral Venous Blood Culture - Final NO GROWTH AFTER 5 DAYS INCUBATION 02/10/19 18:57 Blood - Peripheral Venous Blood Culture - Final NO GROWTH AFTER 5 DAYS INCUBATION 02/10/19 20:30 Urine - Urine Clean Catch Urine Culture - Final Citrobacter Freundii 02/11/19 23:00 Urine For Antigen Detection Legionella Antigen - Final 02/11/19 23:00 Urine For Antigen Detection Streptococcus pneumoniae Antigen (M - Final Current Medications Acetaminophen (Tylenol -) 500 mg PO Q6HPO [facility] Last Admin: 02/19/19 06:18 Dose: 500 mg Al Hydroxide/Mg Hydroxide (Mylanta Oral Suspension -) 15 ml PO TID [facility] Last Admin: 02/19/19 06:18 Dose: 15 ml Amino Acids (Prosource No Carb Liquid Pkt) 30 ml PO BID@0800,1730 [facility] Last Admin: 02/19/19 07:53 Dose: 30 ml Amlodipine Besylate (Norvasc -) 2.5 mg PO DAILY [facility] Last Admin: 02/19/19 10:36 Dose: 2.5 mg Aspirin (Ecotrin -) 81 mg PO DAILY [facility] Last Admin: 02/19/19 10:36 Dose: 81 mg Fluconazole (Diflucan -) 100 mg PO DAILY [facility] Last Admin: 02/19/19 10:37 Dose: 100 mg Folic Acid (Folic Acid -) 1 mg PO DAILY [facility] Last Admin: 02/19/19 10:36 Dose: 1 mg Potassium Chloride 20 meq/ (Amino Acids) 1,010 mls @ 42 mls/hr IVPB Q24H [facility] Last Admin: 02/18/19 14:12 Dose: 42 mls/hr Levofloxacin (Levaquin -) 250 mg PO DAILY@0600 [facility] Last Admin: 02/19/19 06:18 Dose: 250 mg Levothyroxine Sodium (Synthroid -) 100 mcg PO DAILY@0700 [facility] Last Admin: 02/19/19 06:18 Dose: 100 mcg Losartan Potassium (Cozaar -) 25 mg PO DAILY [facility] Last Admin: 02/19/19 10:36 Dose: 25 mg Mupirocin (Bactroban 2% Ointment -) 1 applic TP BID [facility] Last Admin: 02/19/19 10:37 Dose: 1 applic Pantoprazole Sodium (Protonix -) 20 mg PO DAILY [facility] Last Admin: 02/19/19 10:37 Dose: 20 mg Senna (Senna -) 1 tab PO BID [facility] Last Admin: 02/19/19 10:36 Dose: 1 tab Valacyclovir HCl (Valtrex -) 500 mg PO BID [facility] Last Admin: 02/19/19 10:36 Dose: 500 mg imp/reccd febrile neutropenia resolved-uti/pneumonia day #9 antibiotics- would complete 10 days continue po valtrex for another week thrush has resolved encourage OOB and incentive spirometry management of thrombocytosis per hematology please call back if needed Problem List - Problems (1) Neutropenic sepsis Code(s): A41.9 - SEPSIS, UNSPECIFIED ORGANISM; D70.9 - NEUTROPENIA, UNSPECIFIED (2) Pneumonia Code(s): J18.9 - PNEUMONIA, UNSPECIFIED ORGANISM Qualifiers: Pneumonia type: due to unspecified organism Laterality: bilateral Lung location: unspecified part of lung Qualified Code(s): J18.9 - Pneumonia, unspecified organism (3) UTI (urinary tract infection) Code(s): N39.0 - URINARY TRACT INFECTION, SITE NOT SPECIFIED (4) Penicillin allergy Code(s): Z88.0 - ALLERGY STATUS TO PENICILLIN (5) Essential thrombocytosis Code(s): D47.3 - ESSENTIAL (HEMORRHAGIC) THROMBOCYTHEMIA
[2019-02-19 11:50] LABS: ANISOCYTOSIS 1+; PLATELET ESTIMATE NORMAL
--- NOTE | 2019-02-19 14:05 | PN ---
Progress Note (short form) - Note Progress Note: Subjective: Patient seen and examined at bedside. No new complaints. No events overnight. She states that she feels better. Objective: Vital Signs Temperature 98.3 F 02/19/19 07:01 Pulse Rate 89 02/19/19 07:01 Respiratory Rate 23 H 02/19/19 09:00 Blood Pressure 129/81 02/19/19 07:01 O2 Sat by Pulse Oximetry (%) 94 L 02/19/19 09:00 Physical exam: Gen.: patient found lying in bed. Well appearing. Awake, alert. Lungs: Crackles heard b/l at the bases Heart: regular rate and rhythm. S1, S2 heard. No murmurs gallops or rubs heard. Abdomen: soft, nontender, nondistended. Bowel sounds heard. Extremities: no peripheral edema noted. No bruising, swelling, erythema or warmth of extremities noted. neuro: patient A&O x3. Moving all four limbs spontaneously. Active Medications Acetaminophen (Tylenol -) 500 mg PO Q6HPO [facility] Last Admin: 02/19/19 12:00 Dose: 500 mg Al Hydroxide/Mg Hydroxide (Mylanta Oral Suspension -) 15 ml PO TID [facility] Last Admin: 02/19/19 06:18 Dose: 15 ml Amino Acids (Prosource No Carb Liquid Pkt) 30 ml PO BID@0800,1730 [facility] Last Admin: 02/19/19 07:53 Dose: 30 ml Amlodipine Besylate (Norvasc -) 2.5 mg PO DAILY [facility] Last Admin: 02/19/19 10:36 Dose: 2.5 mg Aspirin (Ecotrin -) 81 mg PO DAILY [facility] Last Admin: 02/19/19 10:36 Dose: 81 mg Fluconazole (Diflucan -) 100 mg PO DAILY [facility] Last Admin: 02/19/19 10:37 Dose: 100 mg Folic Acid (Folic Acid -) 1 mg PO DAILY [facility] Last Admin: 02/19/19 10:36 Dose: 1 mg Potassium Chloride 20 meq/ (Amino Acids) 1,010 mls @ 42 mls/hr IVPB Q24H [facility] Last Admin: 02/18/19 14:12 Dose: 42 mls/hr Levofloxacin (Levaquin -) 250 mg PO DAILY@0600 [facility] Last Admin: 02/19/19 06:18 Dose: 250 mg Levothyroxine Sodium (Synthroid -) 100 mcg PO DAILY@0700 [facility] Last Admin: 02/19/19 06:18 Dose: 100 mcg Losartan Potassium (Cozaar -) 25 mg PO DAILY [facility] Last Admin: 02/19/19 10:36 Dose: 25 mg Mupirocin (Bactroban 2% Ointment -) 1 applic TP BID [facility] Last Admin: 02/19/19 10:37 Dose: 1 applic Pantoprazole Sodium (Protonix -) 20 mg PO DAILY [facility] Last Admin: 02/19/19 10:37 Dose: 20 mg Senna (Senna -) 1 tab PO BID [facility] Last Admin: 02/19/19 10:36 Dose: 1 tab Valacyclovir HCl (Valtrex -) 500 mg PO BID [facility] Last Admin: 02/19/19 10:36 Dose: 500 mg Home Medications Medication Instructions Recorded Cholecalciferol (Vitamin D3) 1 tab PO DAILY 01/10/19 [Vitamin D3 -] ASA - 162 mg PO DAILY 01/17/19 Alendronate Sodium [Fosamax] 1 tab PO WEEKLY #4 tablet 01/29/19 Cyanocobalamin (Vitamin B-12) 500 mcg PO DAILY #100 tablet 01/29/19 [B-12 Dots] Docusate Sodium [Colace -] 100 mg PO DAILY capsule 01/29/19 Escitalopram Oxalate [Lexapro -] 10 mg PO DAILY tablet 01/29/19 Hydroxyurea [Hydrea 500Mg Capsule 1,000 mg PO TID #100 capsule 01/29/19 -] Levothyroxine [Synthroid -] 100 mcg PO DAILY@0700 tablet 01/29/19 Lisinopril [Prinivil] 10 mg PO BID tablet 01/29/19 Multivitamin [Multiple Vitamins] 1 each PO Q48H #100 tablet 01/29/19 Nebivolol [Bystolic -] 10 mg PO DAILY tab 01/29/19 Olanzapine [Zyprexa -] 2.5 mg PO HS PRN tablet 01/29/19 Magnesium Hydroxide [Milk of 400 mg PO PRN 02/10/19 Magnesia] Ondansetron [Zofran -] 4 mg PO Q8H PRN 02/10/19 Polyethylene Glycol 3350 17 gm PO DAILY 02/10/19 Allergies Allergy/AdvReac Type Severity Reaction Status Date / Time nitrofurantoin Allergy Verified 02/10/19 19:16 [From Macrobid] nitrofurantoin Allergy Verified 02/10/19 19:16 macrocrystalline [From Macrobid] Penicillins Allergy Verified 02/10/19 19:16 CBC, BMP 02/19/19 06:23 02/19/19 06:23 Assessment and plan: The patient is an 83-year-old female with a past medical history of hypertension , hyperthyroidism, hyperparathyroidism and essential thrombocytosis who presented to the emergency department complaining of generalized weakness and SOB. The patient was found to be pancytopenic. #Pancytopenia possibly 2/2 hydrea use vs BM supression from infection -platelets 365 today -WBC 17.1 today -ANC 1400 -neutropenic precautions lifted -UCx growing citrobacter freundii -UTI being treated with meropenem (patient PCN allergic) -Patient no longer requires Granix -patient on merrem iv, fluconazole and valtrex daily for prophylaxsis #Essential thrombocytosis -suggest resuming Hydrea slowly (500mg every other day) -monitor CBC 2-3 time weekly while on hydrea as outpatient -hold hydrea of WBC <2500 -c/w folic acid while patient on hydrea -discharge planning
--- NOTE | 2019-02-19 14:11 | PN ---
Progress Note (short form) - Note Progress Note: Laboratory Results - last 24 hr 02/19/19 02/19/19 06:23 06:23 WBC 17.1 H RBC 3.29 L Hgb 9.4 L Hct 28.1 L MCV 85.5 MCH 28.6 MCHC 33.5 RDW 17.1 H Plt Count 365 D MPV 7.6 Absolute Neuts (auto) 14.5 H Neutrophils % 84.7 H Neutrophils % (Manual) 52.0 Band Neutrophils % 12.0 Lymphocytes % 12.8 D Lymphocytes % (Manual) 18.0 D Monocytes % 1.4 L Monocytes % (Manual) 7 D Eosinophils % 0.5 Eosinophils % (Manual) 0.0 D Basophils % 0.6 Basophils % (Manual) 0.0 Myelocytes % (Man) 3 H D Promyelocytes % (Man) 2 D Blast Cells % (Manual) 0 Nucleated RBC % 0 Metamyelocytes 2 D Hypochromia 0 Platelet Estimate Normal Polychromasia 0 Poikilocytosis 0 Anisocytosis 1+ Microcytosis 1+ Sodium 135 L Potassium 3.3 L Chloride 98 Carbon Dioxide 31 Anion Gap 5 L BUN 24.1 H Creatinine 0.4 L Est GFR (CKD-EPI)AfAm 110.08 Est GFR (CKD-EPI)NonAf 94.98 Random Glucose 106 Calcium 9.0 Total Bilirubin 0.4 AST 27 ALT 20 Alkaline Phosphatase 87 Total Protein 5.6 L Albumin 2.4 L Vital Signs Temperature 98.3 F 02/19/19 07:01 Pulse Rate 89 02/19/19 07:01 Respiratory Rate 23 H 02/19/19 09:00 Blood Pressure 129/81 02/19/19 07:01 O2 Sat by Pulse Oximetry (%) 94 L 02/19/19 09:00 CC: weakness ``````````````````` skin--stasis changes of LE's; no rashes head--NC eyes--anicteric oral--no droop; no thrush seen on tongue; few erosions noted on soft palate abd--soft, distended, NT ext--no edema neuro--asthenic; able to respond, psycho motor slowing; prone to disorientation ; able to recognize people and knows names; demeanor is calm ````````````````````````````````````````````` Summ > pancytopenia--resolved; received granix > oral thrush--on antifungals > HTn--BP okay > UTI--Citrobacter; completed merepenem; give levaquin x 2 days > Low potassium--replenish as needed > Moderate malnutrition--low albumin; and has lost weight 2nd poor PO intake; eating better > Hypothyroid--T4 WNL > Fail thrive--multiple causes; converging to produce state of debility, from which it is uncertain if she can recover; will make hospice referral; start SSRI ``````````````````````````````````````````` discussed condition & prog w/ son ~~~~~~~~~~~~~~~~~~~~~~~~~~~~~~~~~~~~ Dr Campbell
[2019-02-19] MEDS ORDERED: POTASSIUM CHLORIDE TABS 20 MEQ TABLET.ER (FP) PO ONE (14:13)
[2019-02-19] MEDS ORDERED: D5-1/2NS+10 MEQ KCL - 10 MEQ/1,000 ML INFUS.BAG IV SCH (14:15)
--- NOTE | 2019-02-19 20:36 | PN ---
Progress Note (short form) - Note Progress Note: Patient seen and examined Last Vital Signs Temp Pulse Resp BP Pulse Ox 98.2 F 79 18 119/65 94 L 02/19/19 17:29 02/19/19 17:29 02/19/19 17:29 02/19/19 17:29 02/19/19 09:00 Cor: RSR, No murmurs, No gallops Lungs: Clear to P&A Abd: Soft, Normal bowel sounds, No organomegaly Ext:No significant edema Labs/Meds reviewed a/P 83yo F with PMH of HTN, HLD, essential thrombocytosis, Hypothyroidism , CHF, recent admission for worsening gait, shortness of breath, and discharged to [facility]. Now comes in with generalized weakness h/o essential thrombocytosis, on hydrea. Held due to neutropenia Counts have now recovered Resume hydrea 500mg QOD. Continue folic acid Monitor CBC 2-3x/week Continue aspirin 81mg daily
[2019-02-19 21:53] VITALS: BMI 24.4
[2019-02-20] MEDS: ACETAMINOPHEN 500 MG TABLET (FP) PO SCH ×3 (06:07→17:59)
[2019-02-20] MEDS: LEVOTHYROXINE NA 100 MCG TABLET (FP) PO SCH (06:07)
[2019-02-20] MEDS: MAG HYDROX/AL HYDROX/SIMETH 30 ML UNIT-DOSE CUP PO SCH ×3 (06:08→21:24)
[2019-02-20 08:15] LABS: HEMATOCRIT 27.1 % (32.4-45.2); HEMOGLOBIN 9.2 GM/dL (10.7-15.3); MCHC 34.1 g/dl (32.0-36.0); MEAN CELL VOLUME 85.2 fl (80-96); MEAN PLT VOLUME 7.2 fl (7.5-11.1); PLATELET COUNT 447 K/MM3 (134-434); RBC 3.18 M/mm3 (3.60-5.2); RDW 17.2 % (11.6-15.6); WHITE BLOOD COUNT 16.5 K/mm3 (4.0-10.0)
[2019-02-20 08:51] LABS: CALCIUM 9.1 mg/dL (8.5-10.1); CREATININE 0.5 mg/dL (0.55-1.3); POTASSIUM 3.8 mmol/L (3.5-5.1)
[2019-02-20] MEDS ORDERED: PT OWN MED DRAWER 7, Y5N ONE (09:38)
[2019-02-20] MEDS: amLODIPine BESYLATE 2.5 MG TABLET (FP) PO SCH (09:46)
[2019-02-20] MEDS: LOSARTAN POTASSIUM 25 MG TABLET PO SCH (09:46)
[2019-02-20] MEDS: FOLIC ACID 1 MG TABLET (FP) PO SCH (09:46)
[2019-02-20] MEDS: valACYclovir HCL 500 MG TABLET (FP) PO SCH ×2 (09:46→21:24)
[2019-02-20] MEDS: SENNOSIDES 8.6MG TABLET (FP) PO SCH ×2 (09:46→21:24)
[2019-02-20] MEDS: ASPIRIN COATED 81 MG TABLET.EC PO SCH (09:46)
[2019-02-20] MEDS: FLUCONAZOLE 100 MG TABLET (UD) PO SCH (09:46)
[2019-02-20] MEDS: PANTOPRAZOLE 20 MG TABLET (FP) PO SCH (09:46)
[2019-02-20] MEDS: MUPIROCIN 2% TOPICAL OINTMENT 22 GM TUBE TP SCH ×2 (09:48→21:25)
[2019-02-20] MEDS ORDERED: HYDROXYUREA 500 MG CAPSULE PO SCH (10:00)
--- NOTE | 2019-02-20 12:36 | PN ---
Progress Note (short form) - Note Progress Note: Subjective: Patient seen and examined at bedside. No new complaints. No events overnight. She states that she feels better. Objective: Vital Signs Temperature 98.3 F 02/20/19 06:50 Pulse Rate 98 H 02/20/19 06:50 Respiratory Rate 20 02/20/19 06:50 Blood Pressure 158/90 02/20/19 06:50 O2 Sat by Pulse Oximetry (%) 95 02/19/19 20:40 Physical exam: Gen.: patient found lying in bed. Well appearing. Awake, alert. Lungs: Crackles heard at the bases improved today Heart: regular rate and rhythm. S1, S2 heard. No murmurs gallops or rubs heard. Abdomen: soft, nontender, nondistended. Bowel sounds heard. Extremities: no peripheral edema noted. No bruising, swelling, erythema or warmth of extremities noted. neuro: patient A&O x3. Moving all four limbs spontaneously. Home Medications Medication Instructions Recorded Cholecalciferol (Vitamin D3) 1 tab PO DAILY 01/10/19 [Vitamin D3 -] ASA - 162 mg PO DAILY 01/17/19 Alendronate Sodium [Fosamax] 1 tab PO WEEKLY #4 tablet 01/29/19 Cyanocobalamin (Vitamin B-12) 500 mcg PO DAILY #100 tablet 01/29/19 [B-12 Dots] Docusate Sodium [Colace -] 100 mg PO DAILY capsule 01/29/19 Escitalopram Oxalate [Lexapro -] 10 mg PO DAILY tablet 01/29/19 Hydroxyurea [Hydrea 500Mg Capsule 1,000 mg PO TID #100 capsule 01/29/19 -] Levothyroxine [Synthroid -] 100 mcg PO DAILY@0700 tablet 01/29/19 Lisinopril [Prinivil] 10 mg PO BID tablet 01/29/19 Multivitamin [Multiple Vitamins] 1 each PO Q48H #100 tablet 01/29/19 Nebivolol [Bystolic -] 10 mg PO DAILY tab 01/29/19 Olanzapine [Zyprexa -] 2.5 mg PO HS PRN tablet 01/29/19 Magnesium Hydroxide [Milk of 400 mg PO PRN 02/10/19 Magnesia] Ondansetron [Zofran -] 4 mg PO Q8H PRN 02/10/19 Polyethylene Glycol 3350 17 gm PO DAILY 02/10/19 Allergies Allergy/AdvReac Type Severity Reaction Status Date / Time nitrofurantoin Allergy Verified 02/10/19 19:16 [From Macrobid] nitrofurantoin Allergy Verified 02/10/19 19:16 macrocrystalline [From Macrobid] Penicillins Allergy Verified 02/10/19 19:16 Active Medications Acetaminophen (Tylenol -) 500 mg PO Q6HPO [facility] Last Admin: 02/20/19 06:07 Dose: 500 mg Al Hydroxide/Mg Hydroxide (Mylanta Oral Suspension -) 15 ml PO TID [facility] Last Admin: 02/20/19 06:08 Dose: 15 ml Amlodipine Besylate (Norvasc -) 2.5 mg PO DAILY [facility] Last Admin: 02/20/19 09:46 Dose: 2.5 mg Aspirin (Ecotrin -) 81 mg PO DAILY [facility] Last Admin: 02/20/19 09:46 Dose: 81 mg Fluconazole (Diflucan -) 100 mg PO DAILY [facility] Last Admin: 02/20/19 09:46 Dose: 100 mg Fluoxetine HCl (Prozac -) 10 mg PO DAILY [facility] Folic Acid (Folic Acid -) 1 mg PO DAILY [facility] Last Admin: 02/20/19 09:46 Dose: 1 mg Hydroxyurea (Hydrea -) 500 mg PO Q2D@1000 [facility] Last Admin: 02/20/19 09:46 Dose: 500 mg Potassium Chloride/Dextrose/Sod Cl (D5-1/2ns+10 Meq Kcl -) 10 meq in 1,000 mls @ 42 mls/hr IV ASDIR [facility] Last Admin: 02/19/19 17:51 Dose: 42 mls/hr Levofloxacin (Levaquin -) 250 mg PO DAILY@0600 [facility] Last Admin: 02/20/19 06:07 Dose: 250 mg Levothyroxine Sodium (Synthroid -) 100 mcg PO DAILY@0700 [facility] Last Admin: 02/20/19 06:07 Dose: 100 mcg Losartan Potassium (Cozaar -) 25 mg PO DAILY [facility] Last Admin: 02/20/19 09:46 Dose: 25 mg Mupirocin (Bactroban 2% Ointment -) 1 applic TP BID [facility] Last Admin: 02/20/19 09:48 Dose: 1 applic Pantoprazole Sodium (Protonix -) 20 mg PO DAILY [facility] Last Admin: 02/20/19 09:46 Dose: 20 mg Senna (Senna -) 1 tab PO BID [facility] Last Admin: 02/20/19 09:46 Dose: 1 tab Valacyclovir HCl (Valtrex -) 500 mg PO BID [facility] Last Admin: 02/20/19 09:46 Dose: 500 mg CBC, BMP 02/20/19 06:45 02/20/19 06:45 Assessment and plan: The patient is an 83-year-old female with a past medical history of hypertension , hyperthyroidism, hyperparathyroidism and essential thrombocytosis who presented to the emergency department complaining of generalized weakness and SOB. The patient was found to be pancytopenic. #Pancytopenia possibly 2/2 hydrea use vs BM supression from infection -WBC counts improving -neutropenic precautions lifted -UCx growing citrobacter freundii -UTI being treated with meropenem (patient PCN allergic) -patient on merrem iv, fluconazole and valtrex daily for prophylaxsis #Essential thrombocytosis -Hydrea 500mg every other day -monitor CBC 2-3 time weekly while on hydrea as outpatient -hold hydrea of WBC <2500 -c/w folic acid while patient on hydrea -discharge planning
[2019-02-20] MEDS: FLUoxetine HCL 10 MG TABLET PO SCH (13:10)
--- NOTE | 2019-02-20 16:18 | PN ---
Progress Note (short form) - Note Progress Note: Current Medications Acetaminophen (Tylenol -) 500 mg PO Q6HPO [facility] Last Admin: 02/20/19 13:09 Dose: 500 mg Al Hydroxide/Mg Hydroxide (Mylanta Oral Suspension -) 15 ml PO TID [facility] Last Admin: 02/20/19 13:10 Dose: 15 ml Amlodipine Besylate (Norvasc -) 2.5 mg PO DAILY [facility] Last Admin: 02/20/19 09:46 Dose: 2.5 mg Aspirin (Ecotrin -) 81 mg PO DAILY [facility] Last Admin: 02/20/19 09:46 Dose: 81 mg Fluconazole (Diflucan -) 100 mg PO DAILY [facility] Last Admin: 02/20/19 09:46 Dose: 100 mg Fluoxetine HCl (Prozac -) 10 mg PO DAILY [facility] Last Admin: 02/20/19 13:10 Dose: 10 mg Folic Acid (Folic Acid -) 1 mg PO DAILY [facility] Last Admin: 02/20/19 09:46 Dose: 1 mg Hydroxyurea (Hydrea -) 500 mg PO Q2D@1000 [facility] Last Admin: 02/20/19 09:46 Dose: 500 mg Levothyroxine Sodium (Synthroid -) 100 mcg PO DAILY@0700 [facility] Last Admin: 02/20/19 06:07 Dose: 100 mcg Losartan Potassium (Cozaar -) 25 mg PO DAILY [facility] Last Admin: 02/20/19 09:46 Dose: 25 mg Mupirocin (Bactroban 2% Ointment -) 1 applic TP BID [facility] Last Admin: 02/20/19 09:48 Dose: 1 applic Pantoprazole Sodium (Protonix -) 20 mg PO DAILY [facility] Last Admin: 02/20/19 09:46 Dose: 20 mg Senna (Senna -) 1 tab PO BID [facility] Last Admin: 02/20/19 09:46 Dose: 1 tab Valacyclovir HCl (Valtrex -) 500 mg PO BID [facility] Last Admin: 02/20/19 09:46 Dose: 500 mg Laboratory Results - last 24 hr 02/20/19 02/20/19 06:45 06:45 WBC 16.5 H RBC 3.18 L Hgb 9.2 L Hct 27.1 L MCV 85.2 MCH 29.0 MCHC 34.1 RDW 17.2 H Plt Count 447 H D MPV 7.2 L Sodium 136 Potassium 3.8 Chloride 100 Carbon Dioxide 31 Anion Gap 5 L BUN 21.0 H Creatinine 0.5 L Est GFR (CKD-EPI)AfAm 102.29 Est GFR (CKD-EPI)NonAf 88.25 Random Glucose 84 Calcium 9.1 Free T4 1.08 Vital Signs Temperature 98.3 F 02/20/19 08:00 Pulse Rate 78 02/20/19 08:00 Respiratory Rate 20 02/20/19 09:00 Blood Pressure 140/75 02/20/19 08:00 O2 Sat by Pulse Oximetry (%) 95 02/20/19 09:00 CC: weakness ``````````````````` skin--stasis changes of LE's head--NC eyes--anicteric oral--no droop; no thrush seen on tongue; few erosions noted on soft palate abd--soft, distended, NT ext--no edema neuro--asthenic; able to respond, psycho motor slowing; prone to disorientation ; able to recognize people and knows names; demeanor is calm ````````````````````````````````````````````` Summ > Thrombocytosis--rise in PLTs again noted and started back on HU by Onc > pancytopenia--resolved > oral thrush--on antifungals; will d/c in Am > HTn--BP okay > UTI--resolved > Low potassium--replenish as needed > Moderate malnutrition--low albumin; and has lost weight 2nd poor PO intake; eating better > Hypothyroid--T4 WNL > Fail thrive--multiple causes; converging to produce state of debility, from which it is uncertain if she can recover; not a hospice candidate; will again try for ST rehab ``````````````````````````````````````````` discussed condition & prog w/ daughter ~~~~~~~~~~~~~~~~~~~~~~~~~~~~~~~~~~~~ Dr Campbell
[2019-02-21] MEDS: ACETAMINOPHEN 500 MG TABLET (FP) PO SCH ×2 (00:28→06:29)
[2019-02-21] MEDS: MAG HYDROX/AL HYDROX/SIMETH 30 ML UNIT-DOSE CUP PO SCH (06:28)
[2019-02-21] MEDS: LEVOTHYROXINE NA 100 MCG TABLET (FP) PO SCH (06:29)
[2019-02-21 08:33] LABS: HEMATOCRIT 28.8 % (32.4-45.2); HEMOGLOBIN 9.5 GM/dL (10.7-15.3); MCH 28.2 pg (25.7-33.7); MEAN CELL VOLUME 85.5 fl (80-96); MEAN PLT VOLUME 6.9 fl (7.5-11.1); PLATELET COUNT 497 K/MM3 (134-434); RBC 3.36 M/mm3 (3.60-5.2); RDW 17.3 % (11.6-15.6); WHITE BLOOD COUNT 16.3 K/mm3 (4.0-10.0)
[2019-02-21 08:53] LABS: BLOOD UREA NITROGEN 17.9 mg/dL (7-18); CALCIUM 9.1 mg/dL (8.5-10.1); CREATININE 0.5 mg/dL (0.55-1.3); POTASSIUM 3.9 mmol/L (3.5-5.1)
[2019-02-21] MEDS: PANTOPRAZOLE 20 MG TABLET (FP) PO SCH (09:31)
[2019-02-21] MEDS: valACYclovir HCL 500 MG TABLET (FP) PO SCH (09:31)
[2019-02-21] MEDS: LOSARTAN POTASSIUM 25 MG TABLET PO SCH (09:31)
[2019-02-21] MEDS: ASPIRIN COATED 81 MG TABLET.EC PO SCH (09:31)
[2019-02-21] MEDS: FOLIC ACID 1 MG TABLET (FP) PO SCH (09:31)
[2019-02-21] MEDS: amLODIPine BESYLATE 2.5 MG TABLET (FP) PO SCH (09:31)
[2019-02-21] MEDS: SENNOSIDES 8.6MG TABLET (FP) PO SCH (09:31)
[2019-02-21] MEDS: FLUCONAZOLE 100 MG TABLET (UD) PO SCH (09:32)
[2019-02-21] MEDS: MUPIROCIN 2% TOPICAL OINTMENT 22 GM TUBE TP SCH (09:33)
[2019-02-21] MEDS: FLUoxetine HCL 10 MG TABLET PO SCH (09:33)
[2019-02-21 09:58] VITALS: TEMP 98.1
[2019-02-21] MEDS ORDERED: HYDROXYUREA 500 MG CAPSULE PO SCH (10:00)
--- NOTE | 2019-02-21 10:18 | DS ---
Physical Examination Vital Signs: Vital Signs Temperature 98.1 F 02/21/19 09:57 Pulse Rate 96 H 02/21/19 09:57 Respiratory Rate 20 02/21/19 09:57 Blood Pressure 159/92 02/21/19 09:57 O2 Sat by Pulse Oximetry (%) 96 02/20/19 21:00 Constitutional: Yes: No Distress Eyes: Yes: Conjunctiva Clear HENT: Yes: Other (sores on soft palate) Neck: Yes: WNL Cardiovascular: Yes: Regular Rate and Rhythm Respiratory: Yes: Regular Gastrointestinal: Yes: Normal Bowel Sounds, Soft ...Rectal Exam: Yes: Deferred Musculoskeletal: Yes: Muscle Weakness Edema: No Integumentary: Yes: Erythema (LLE) Neurological: Yes: Unsteady Gait, Other (some confusion) ...Motor Strength: WNL Labs: CBC, BMP 02/21/19 07:50 02/21/19 07:50 Laboratory Results - last 24 hr 02/21/19 02/21/19 07:50 07:50 WBC 16.3 H RBC 3.36 L Hgb 9.5 L Hct 28.8 L MCV 85.5 MCH 28.2 MCHC 33.0 RDW 17.3 H Plt Count 497 H MPV 6.9 L Sodium 136 Potassium 3.9 Chloride 101 Carbon Dioxide 30 Anion Gap 5 L BUN 17.9 Creatinine 0.5 L Est GFR (CKD-EPI)AfAm 102.29 Est GFR (CKD-EPI)NonAf 88.25 Random Glucose 92 Calcium 9.1 Discharge Summary Problems reviewed: Yes Reason For Visit: Fever Current Active Problems Altered mental status (Acute) pancytopenia dehydration fail thrive dementia Neutropenic sepsis (resolved) Penicillin allergy (Acute) Pneumonia (Acute) hypothyroid Hypertension essential thrombocytosis depression UTI (urinary tract infection) oral thrush oral sores leukocytosis (post granix injection) Other Procedures: PC transfusion Hospital Course: 83 YOF admitted from [facility] (where she was sent for Short term rehab), with fever; confusion, malaise fail thrive 2nd state of infection (urine and possible PNA); she was hydrated and Tx with antibiotics. Her CBc showed pancytopenia (likely 2nd high dose HU and state of infection); she was seen by Heme onc and given Granix and she responded as all cell lines began to trend up. She became more alert, as the infection came under control. She was found to have oral thrush and was started on ant fungal agents; she was noted having oral ulcers and was given anti-viral (IV then PO); her appetite began to improve , and has become more alert. Her confusion has improved somewhat. She was placed back on Hydrea by Oncology because her PLt count has again begun to rise. Her VS have been stable. Health Concerns: avoid dehydratuion; malnutrition Plan of Treatment: physical therapy; check CBC & chemistry weekly (sooner if needed) Goals: ambulation with walker Condition: Improved - Instructions Diet, Activity, Other Instructions: low salt diet; give puree and advance to soft Referrals: Gregor Campbell MD [Primary Care Provider] - Disposition: CUSTODIAL FACILITY - Home Medications Comprehensive Discharge Medication List: Ambulatory Orders ASA - 162 mg PO DAILY 01/17/19 Cyanocobalamin (Vitamin B-12) [B-12 Dots] 500 mcg PO DAILY #100 tablet 01/29/19 Docusate Sodium [Colace -] 100 mg PO DAILY capsule 01/29/19 Levothyroxine [Synthroid -] 100 mcg PO DAILY@0700 tablet 01/29/19 Multivitamin [Multiple Vitamins] 1 each PO Q48H #100 tablet 01/29/19 Magnesium Hydroxide [Milk of Magnesia] 400 mg PO PRN 02/10/19 Amlodipine Besylate 2.5 mg PO DAILY #30 tablet 02/21/19 Fluoxetine HCl [Prozac -] 10 mg PO DAILY tablet 02/21/19 Folic Acid - 1 mg PO DAILY tablet 02/21/19 Hydroxyurea [Hydrea 500Mg Capsule -] 500 mg PO Q2D@1000 capsule 02/21/19 Losartan Potassium [Cozaar -] 25 mg PO DAILY tablet 02/21/19 Pantoprazole Sodium [Protonix -] 20 mg PO DAILY tablet.ec 02/21/19 Valacyclovir HCl [Valtrex -] 500 mg PO BID #14 tablet 02/21/19
[2019-02-21 12:04] VITALS: BP 141/81; PULSE 81
== END 2019-02-21 11:30 | DRG 871 ==
LOC: JER 17:50 → JERBED 19:43 → J8W 02-11 01:12
PROVIDERS: ADMIT Internal Medicine; ATTEND Internal Medicine
PROC: 30233N1 Transfusion of Nonautologous Red Blood Cells into Peripheral Vein, Percutaneous Approach (ICD-10-PCS; principal; 2019-02-11)
DX: A41.89 Other specified sepsis (principal); J18.9 Pneumonia, unspecified organism; N39.0 Urinary tract infection, site not specified; D61.818 Other pancytopenia; E44.0 Moderate protein-calorie malnutrition; B37.0 Candidal stomatitis; I50.32 Chronic diastolic (congestive) heart failure; J98.11 Atelectasis; D70.9 Neutropenia, unspecified; D47.3 Essential (hemorrhagic) thrombocythemia; R62.7 Adult failure to thrive; D72.829 Elevated white blood cell count, unspecified; E87.6 Hypokalemia; R09.02 Hypoxemia; T45.1X5A Adverse effect of antineoplastic and immunosuppressive drugs, initial encounter; R41.82 Altered mental status, unspecified; E86.0 Dehydration; F03.90 Unspecified dementia, unspecified severity, without behavioral disturbance, psychotic disturbance, mood disturbance, and anxiety; E03.9 Hypothyroidism, unspecified; F32.9 Major depressive disorder, single episode, unspecified; Z88.0 Allergy status to penicillin; E78.5 Hyperlipidemia, unspecified; E87.70 Fluid overload, unspecified; R51 Headache
CPT/HCPCS: 36415; 36430; 36511; 70450-TC; 71045-TC-FY; 71260-TC; 74177-TC; 80048; 80053; 81003; 82085; 82272; 82550; 82553; 82607; 82746; 82803; 83605; 83615; 83735; 84439; 84443; 84484; 85025; 85027; 85044; 85610; 85730; 86850; 86900; 86901; 86922; 87040; 87086; 87186; 87899; 93005; 93010; 97116-GP; 97162-GP; 99285-25; G0480; J0131; J1447; J7030; J8999; P9038; P9058

== ENCOUNTER 2020-10-15 12:18 | Inpatient (IN) | payer OTHER, MEDICARE ==
[2020-10-15 12:44] VITALS: BMI 30.1
[2020-10-15] MEDS ORDERED: SODIUM CHLORIDE 0.9% 500 ML INFUS.BAG IV ONE (13:47)
[2020-10-15] MEDS ORDERED: SULFAMETHOXAZOLE/TRIMETHOPRIM 800MG/160MG D.S. TABLET PO ONE (13:50)
[2020-10-15] MEDS ORDERED: SULFAMETHOXAZOLE/TRIMETHOPRIM 800MG/160MG D.S. TABLET ONE (14:57)
[2020-10-15 15:07] LABS: URINE APPEARANCE Clear; URINE BILIRUBIN Negative (NEGATIVE); URINE COLOR Yellow; URINE GLUCOSE (UA) Negative (NEGATIVE); URINE KETONE Negative (NEGATIVE); URINE LEUK ESTERASE 2+ (NEGATIVE); URINE NITRITE Negative (NEGATIVE); URINE PROTEIN Negative (NEGATIVE); URINE UROBILINOGEN 0.2 mg/dL (0.2-1.0)
[2020-10-15 15:29] LABS: CHLORIDE 103 mmol/L (98-107); SODIUM 137 mmol/L (136-145)
[2020-10-15 15:34] LABS: CALCIUM 10.2 mg/dL (8.5-10.1); GLUCOSE,RANDOM 86 mg/dL (74-106)
[2020-10-15 15:35] LABS: ALBUMIN 4.1 g/dl (3.4-5.0); BLOOD UREA NITROGEN 25.9 mg/dL (7-18); CO2 27 mmol/L (21-32)
[2020-10-15 15:37] LABS: CREATININE 0.8 mg/dL (0.55-1.3)
[2020-10-15 15:38] LABS: BILIRUBIN,TOTAL 0.9 mg/dL (0.2-1); SGOT/AST 64 U/L (15-37); SGPT/ALT 23 U/L (13-61)
[2020-10-15 15:39] LABS: TOT PROT 8.1 g/dl (6.4-8.2)
[2020-10-15 15:40] LABS: ALK PHOS 76 U/L (45-117)
[2020-10-15 15:42] LABS: ANION GAP 8 MMOL/L (8-16)
[2020-10-15 15:44] LABS: EPI CELLS 1.5 /uL (0-25.1); HYALINE CASTS 1.02 /uL (0-3.1); URINE RBC 4.4 /uL (0-23.9); URINE WBC 114.5 /uL (0-25.8)
[2020-10-15 15:45] LABS: URINE BACTERIA 535.2 /uL (0-1359)
[2020-10-15 17:21] LABS: BASO % 1.3 % (0-2.0); EOS % 1.2 % (0-4.5); HEMATOCRIT 36.2 % (32.4-45.2); HEMOGLOBIN 12.5 GM/dL (10.7-15.3); LYMPH % 18.1 % (8-40); MCH 36.5 pg (25.7-33.7); MCHC 34.4 g/dl (32.0-36.0); MEAN PLT VOLUME 6.7 fl (7.5-11.1); MONO % 8.5 % (3.8-10.2); NEUT % 70.9 % (42.8-82.8); PLATELET COUNT 657 10^3/uL (134-434); RBC 3.41 M/mm3 (3.60-5.2); RDW 15.4 % (11.6-15.6); WHITE BLOOD COUNT 8.1 K/mm3 (4.0-10.0)
[2020-10-15 17:38] LABS: BLOOD UREA NITROGEN 24.2 mg/dL (7-18)
[2020-10-15 17:41] LABS: CREATININE 0.7 mg/dL (0.55-1.3)
[2020-10-15 17:47] LABS: ANISOCYTOSIS 1+; MACROCYTOSIS 0; PLATELET ESTIMATE INCREASED
[2020-10-16] MEDS: MIRTAZAPINE 15 MG TABLET (FP) PO SCH ×2 (00:50→21:16)
[2020-10-16] MEDS: HEPARIN NA (PORCINE) 5,000 UNITS/ML 1ML VIAL SQ SCH ×3 (06:12→21:15)
[2020-10-16] MEDS: LEVOTHYROXINE NA 100 MCG TABLET (FP) PO SCH (06:12)
[2020-10-16 08:59] LABS: HEMATOCRIT 35.7 % (32.4-45.2); HEMOGLOBIN 12.1 GM/dL (10.7-15.3); MCHC 34.1 g/dl (32.0-36.0); MEAN CELL VOLUME 105.6 fl (80-96); PLATELET COUNT 646 10^3/uL (134-434); RBC 3.38 M/mm3 (3.60-5.2); RDW 15.4 % (11.6-15.6); WHITE BLOOD COUNT 9.8 K/mm3 (4.0-10.0)
[2020-10-16 09:22] LABS: BLOOD UREA NITROGEN 19.1 mg/dL (7-18); CALCIUM 9.2 mg/dL (8.5-10.1)
[2020-10-16 09:26] LABS: CREATININE 0.7 mg/dL (0.55-1.3)
[2020-10-16] MEDS ORDERED: PT OWN MED DRAWER 7, Y5N ONE ×3 (09:41→21:06)
[2020-10-16] MEDS: amLODIPine BESYLATE 2.5 MG TABLET (FP) PO SCH (09:43)
[2020-10-16] MEDS: HYDROXYUREA 500 MG CAPSULE PO SCH ×2 (09:44→21:18)
[2020-10-16] MEDS: FAMOTIDINE 20 MG TABLET PO SCH ×2 (09:44→21:16)
[2020-10-16] MEDS: ASPIRIN COATED 81 MG TABLET.EC PO SCH (09:44)
[2020-10-16] MEDS: SULFAMETHOXAZOLE/TRIMETHOPRIM 400MG/80MG S.S. TABLET PO SCH ×2 (09:44→21:19)
[2020-10-16] MEDS: FOLIC ACID 1 MG TABLET (FP) PO SCH (09:44)
[2020-10-16 10:19] LABS: ERYTHROCYTE SEDIMENTATION RATE 10 mm/hr (0-30)
[2020-10-16] MEDS: MAGNESIUM CL 64 MG TABLET.SA PO SCH (16:28)
[2020-10-16] MEDS: POLYETHYLENE GLYCOL (HEALTHYLAX) 3350 17 GM PACKET PO SCH (17:05)
[2020-10-16] MEDS: DONEPEZIL HCL 5 MG TABLET (FP) PO SCH (21:17)
[2020-10-17] MEDS: HEPARIN NA (PORCINE) 5,000 UNITS/ML 1ML VIAL SQ SCH ×3 (05:59→21:38)
[2020-10-17] MEDS: LEVOTHYROXINE NA 100 MCG TABLET (FP) PO SCH (06:01)
[2020-10-17] MEDS ORDERED: PT OWN MED DRAWER 7, Y5N ONE ×2 (10:32→21:37)
[2020-10-17] MEDS: ASPIRIN COATED 81 MG TABLET.EC PO SCH (10:38)
[2020-10-17] MEDS: SULFAMETHOXAZOLE/TRIMETHOPRIM 400MG/80MG S.S. TABLET PO SCH ×2 (10:38→21:40)
[2020-10-17] MEDS: FOLIC ACID 1 MG TABLET (FP) PO SCH (10:38)
[2020-10-17] MEDS: amLODIPine BESYLATE 2.5 MG TABLET (FP) PO SCH (10:39)
[2020-10-17] MEDS: HYDROXYUREA 500 MG CAPSULE PO SCH ×2 (10:39→21:39)
[2020-10-17] MEDS: MAGNESIUM CL 64 MG TABLET.SA PO SCH (10:39)
[2020-10-17] MEDS: FAMOTIDINE 20 MG TABLET PO SCH ×2 (10:39→21:38)
[2020-10-17] MEDS: POLYETHYLENE GLYCOL (HEALTHYLAX) 3350 17 GM PACKET PO SCH (10:39)
[2020-10-17] MEDS: DONEPEZIL HCL 5 MG TABLET (FP) PO SCH (21:38)
[2020-10-17] MEDS: MIRTAZAPINE 15 MG TABLET (FP) PO SCH (21:38)
[2020-10-18 06:19] VITALS: TEMP 98.2
[2020-10-18] MEDS: LEVOTHYROXINE NA 100 MCG TABLET (FP) PO SCH (07:17)
[2020-10-18] MEDS: HEPARIN NA (PORCINE) 5,000 UNITS/ML 1ML VIAL SQ SCH (07:17)
[2020-10-18] MEDS ORDERED: PT OWN MED DRAWER 7, Y5N ONE (09:09)
[2020-10-18 09:13] VITALS: BP 109/63; PULSE 89
[2020-10-18] MEDS: ASPIRIN COATED 81 MG TABLET.EC PO SCH (09:15)
[2020-10-18] MEDS: FAMOTIDINE 20 MG TABLET PO SCH (09:15)
[2020-10-18] MEDS: amLODIPine BESYLATE 2.5 MG TABLET (FP) PO SCH (09:15)
[2020-10-18] MEDS: FOLIC ACID 1 MG TABLET (FP) PO SCH (09:15)
[2020-10-18] MEDS: MAGNESIUM CL 64 MG TABLET.SA PO SCH (09:16)
[2020-10-18] MEDS: HYDROXYUREA 500 MG CAPSULE PO SCH (09:16)
[2020-10-18] MEDS: POLYETHYLENE GLYCOL (HEALTHYLAX) 3350 17 GM PACKET PO SCH (09:17)
[2020-10-18] MEDS: SULFAMETHOXAZOLE/TRIMETHOPRIM 400MG/80MG S.S. TABLET PO SCH (09:17)
== END 2020-10-18 14:57 | disposition home or self-care (01) | DRG 690 ==
LOC: JER 12:18 → JERBED 17:21 → J6S 10-16 00:38
PROVIDERS: ADMIT Internal Medicine; ATTEND Internal Medicine
DX: N39.0 Urinary tract infection, site not specified (principal); I10 Essential (primary) hypertension; E03.9 Hypothyroidism, unspecified; F03.90 Unspecified dementia, unspecified severity, without behavioral disturbance, psychotic disturbance, mood disturbance, and anxiety; E86.0 Dehydration; D47.3 Essential (hemorrhagic) thrombocythemia; E21.3 Hyperparathyroidism, unspecified; K59.00 Constipation, unspecified; B96.20 Unspecified Escherichia coli [E. coli] as the cause of diseases classified elsewhere
CPT/HCPCS: 36415; 71045-TC-FY; 76775-TC; 80048; 80053; 81003; 82607; 82962; 84439; 84443; 85025; 85027; 85651; 86769; 87077; 87086; 87186; 93005; 93010; 97116-GP; 97162-GP; 99285-25; C9803; J1644; J8999; U0003; U0005

== ENCOUNTER 2021-06-07 17:08 | Inpatient (IN) | payer OTHER, MEDICARE ==
[2021-06-07 19:50] LABS: HEMOGLOBIN 10.9 GM/dL (10.7-15.3); MCH 36.8 pg (25.7-33.7); MEAN CELL VOLUME 111.4 fl (80-96); MEAN PLT VOLUME 6.8 fl (7.5-11.1); PLATELET COUNT 634 10^3/uL (134-434); RBC 2.96 M/mm3 (3.60-5.2); RDW 15.4 % (11.6-15.6); WHITE BLOOD COUNT 7.6 K/mm3 (4.0-10.0)
[2021-06-07 19:59] LABS: INR 1.03 (0.83-1.09); PROTHROMBIN TIME (PATIENT) 11.8 SEC (9.7-13.0)
[2021-06-07 20:10] LABS: CALCIUM 10.2 mg/dL (8.5-10.1)
[2021-06-07 20:11] LABS: ALBUMIN 3.7 g/dl (3.4-5.0); BLOOD UREA NITROGEN 22.5 mg/dL (7-18)
[2021-06-07 20:14] LABS: CREATININE 0.6 mg/dL (0.55-1.3)
[2021-06-07 20:16] LABS: BILIRUBIN,TOTAL 0.4 mg/dL (0.2-1); TOT PROT 7.1 g/dl (6.4-8.2)
[2021-06-07 21:16] LABS: EPI CELLS 4 /uL (0-25.1); HYALINE CASTS 1 /uL (0-3.1); PH,URINE 7.5 (5.0-8.0); URINE APPEARANCE CLOUDY; URINE BACTERIA >9,000 /uL (0-1359); URINE BILIRUBIN NEGATIVE (NEGATIVE); URINE COLOR YELLOW; URINE GLUCOSE (UA) NEGATIVE (NEGATIVE); URINE KETONE NEGATIVE (NEGATIVE); URINE LEUK ESTERASE 2+ (NEGATIVE); URINE NITRITE POSITIVE (NEGATIVE); URINE PROTEIN NEGATIVE (NEGATIVE); URINE RBC 12 /uL (0-23.9); URINE UROBILINOGEN 0.2 mg/dL (0.2-1.0); URINE WBC 128 /uL (0-25.8)
[2021-06-07] MEDS ORDERED: levoFLOXacin 750 MG TABLET PO ONE ×2 (21:23→22:24)
[2021-06-08] MEDS ORDERED: ACETAMINOPHEN 325 MG TABLET (FP) PO PRN (00:39)
[2021-06-08] MEDS ORDERED: LEVOTHYROXINE NA 25 MCG TABLET (FP) ONE (06:23)
[2021-06-08] MEDS: LEVOTHYROXINE NA 100 MCG TABLET (FP) PO SCH (06:41)
[2021-06-08] MEDS ORDERED: FOLIC ACID 1 MG TABLET (FP) ONE (09:15)
[2021-06-08] MEDS ORDERED: VALSARTAN 80 MG TABLET ONE (09:15)
[2021-06-08] MEDS ORDERED: amLODIPine BESYLATE 2.5 MG TABLET (FP) ONE (09:15)
[2021-06-08] MEDS ORDERED: ASPIRIN COATED 81 MG TABLET.EC ONE (09:15)
[2021-06-08] MEDS ORDERED: ENOXAPARIN NA (PORCINE) 40 MG/0.4 ML DISP.SYRIN SQ ONE (09:16)
[2021-06-08] MEDS: FOLIC ACID 1 MG TABLET (FP) PO SCH (09:56)
[2021-06-08] MEDS: HYDROXYUREA 500 MG CAPSULE PO SCH (09:56)
[2021-06-08] MEDS: ASPIRIN COATED 81 MG TABLET.EC PO SCH (09:56)
[2021-06-08] MEDS: VALSARTAN 160 MG TABLET PO SCH (09:56)
[2021-06-08] MEDS: ENOXAPARIN NA (PORCINE) 40 MG/0.4 ML DISP.SYRIN SQ SCH (09:56)
[2021-06-08] MEDS: CYANOCOBALAMIN 1,000 MCG TABLET (FP) PO SCH (09:57)
[2021-06-08] MEDS ORDERED: amLODIPine BESYLATE 2.5 MG TABLET (FP) PO SCH (10:00)
[2021-06-08] MEDS ORDERED: DEXTROSE 5%-WATER 100 ML IVPB ONE (17:46)
[2021-06-08] MEDS: CEFTRIAXONE 2 GM in DEXTROSE 5%-WATER 2 GM/100 ML BAG IVPB SCH (18:22)
[2021-06-08 20:27] VITALS: BMI 28.0
[2021-06-08] MEDS: DONEPEZIL HCL 5 MG TABLET (FP) PO SCH (21:39)
[2021-06-09] MEDS: LEVOTHYROXINE NA 100 MCG TABLET (FP) PO SCH (07:04)
[2021-06-09 09:35] LABS: EOS % 2.6 % (0-4.5); HEMATOCRIT 32.8 % (32.4-45.2); HEMOGLOBIN 11.4 GM/dL (10.7-15.3); LYMPH % 16.9 % (8-40); MCH 38.1 pg (25.7-33.7); MCHC 34.8 g/dl (32.0-36.0); MEAN CELL VOLUME 109.3 fl (80-96); MEAN PLT VOLUME 6.7 fl (7.5-11.1); MONO % 12.3 % (3.8-10.2); NEUT % 67.2 % (42.8-82.8); PLATELET COUNT 591 10^3/uL (134-434); RDW 15.2 % (11.6-15.6); WHITE BLOOD COUNT 6.5 K/mm3 (4.0-10.0)
[2021-06-09 09:56] LABS: CALCIUM 9.4 mg/dL (8.5-10.1)
[2021-06-09 09:57] LABS: BLOOD UREA NITROGEN 18.6 mg/dL (7-18)
[2021-06-09] MEDS ORDERED: DEXTROSE 5%-WATER 100 ML IVPB ONE (09:57)
[2021-06-09 10:00] LABS: BILIRUBIN,TOTAL 0.4 mg/dL (0.2-1); CREATININE 0.6 mg/dL (0.55-1.3)
[2021-06-09] MEDS ORDERED: CEFTRIAXONE 2 GM-D5W BAG 2 GM/50 ML BAG IVPB SCH (10:00)
[2021-06-09 10:02] LABS: TOT PROT 6.4 g/dl (6.4-8.2)
[2021-06-09 10:06] LABS: ALBUMIN 3.2 g/dl (3.4-5.0)
[2021-06-09] MEDS: ASPIRIN COATED 81 MG TABLET.EC PO SCH (10:19)
[2021-06-09] MEDS: CYANOCOBALAMIN 1,000 MCG TABLET (FP) PO SCH (10:19)
[2021-06-09] MEDS: VALSARTAN 160 MG TABLET PO SCH (10:19)
[2021-06-09] MEDS: FOLIC ACID 1 MG TABLET (FP) PO SCH (10:20)
[2021-06-09] MEDS: amLODIPine BESYLATE 5 MG TABLET (FP) PO SCH (10:20)
[2021-06-09] MEDS: CEFTRIAXONE 2 GM in DEXTROSE 5%-WATER 2 GM/100 ML BAG IVPB SCH (10:20)
[2021-06-09] MEDS: ENOXAPARIN NA (PORCINE) 40 MG/0.4 ML DISP.SYRIN SQ SCH (10:26)
[2021-06-09 13:10] LABS: ANISOCYTOSIS 2+; MACROCYTOSIS 2+
[2021-06-09] MEDS: DONEPEZIL HCL 5 MG TABLET (FP) PO SCH (21:03)
[2021-06-10] MEDS: LEVOTHYROXINE NA 100 MCG TABLET (FP) PO SCH (06:22)
[2021-06-10 07:28] VITALS: TEMP 98.1
[2021-06-10 09:03] LABS: BASO % 1.4 % (0-2.0); EOS % 3.4 % (0-4.5); HEMATOCRIT 33.1 % (32.4-45.2); HEMOGLOBIN 11.1 GM/dL (10.7-15.3); LYMPH % 16.2 % (8-40); MCH 36.8 pg (25.7-33.7); MCHC 33.5 g/dl (32.0-36.0); MEAN CELL VOLUME 109.8 fl (80-96); MEAN PLT VOLUME 6.9 fl (7.5-11.1); MONO % 11.5 % (3.8-10.2); NEUT % 67.5 % (42.8-82.8); PLATELET COUNT 637 10^3/uL (134-434); RBC 3.01 M/mm3 (3.60-5.2); RDW 15.2 % (11.6-15.6); WHITE BLOOD COUNT 6.8 K/mm3 (4.0-10.0)
[2021-06-10 09:29] LABS: BLOOD UREA NITROGEN 23.2 mg/dL (7-18); CALCIUM 9.3 mg/dL (8.5-10.1)
[2021-06-10 09:33] LABS: CREATININE 0.7 mg/dL (0.55-1.3)
[2021-06-10] MEDS ORDERED: DEXTROSE 5%-WATER 100 ML IVPB ONE (09:36)
[2021-06-10] MEDS ORDERED: POLYETHYLENE GLYCOL 3350 119 GM BTL PO ONE (09:46)
[2021-06-10] MEDS: ASPIRIN COATED 81 MG TABLET.EC PO SCH (10:07)
[2021-06-10] MEDS: VALSARTAN 160 MG TABLET PO SCH (10:07)
[2021-06-10] MEDS: HYDROXYUREA 500 MG CAPSULE PO SCH (10:07)
[2021-06-10] MEDS: CYANOCOBALAMIN 1,000 MCG TABLET (FP) PO SCH (10:07)
[2021-06-10] MEDS: amLODIPine BESYLATE 5 MG TABLET (FP) PO SCH (10:07)
[2021-06-10] MEDS: FOLIC ACID 1 MG TABLET (FP) PO SCH (10:07)
[2021-06-10] MEDS: ENOXAPARIN NA (PORCINE) 40 MG/0.4 ML DISP.SYRIN SQ SCH (10:08)
[2021-06-10 10:22] VITALS: BP 144/88; PULSE 80
[2021-06-10] MEDS ORDERED: MINERAL OIL ENEMA 133 ML ENEMA RC ONE (10:45)
[2021-06-10] MEDS ORDERED: CEPHALEXIN MONOHYDRATE 500 MG CAPSULE (UD) PO ONE (10:45)
== END 2021-06-10 13:30 | disposition home or self-care (01) | DRG 690 ==
LOC: JER 17:08 → JERBED 21:54 → J5S 06-08 08:53 → OBSVTOIN 06-08 14:29
PROVIDERS: ADMIT Internal Medicine
DX: N39.0 Urinary tract infection, site not specified (principal); I50.30 Unspecified diastolic (congestive) heart failure; L97.919 Non-pressure chronic ulcer of unspecified part of right lower leg with unspecified severity; E03.9 Hypothyroidism, unspecified; I11.0 Hypertensive heart disease with heart failure; F03.90 Unspecified dementia, unspecified severity, without behavioral disturbance, psychotic disturbance, mood disturbance, and anxiety; F32.A Depression, unspecified; M81.0 Age-related osteoporosis without current pathological fracture; E78.5 Hyperlipidemia, unspecified; D47.3 Essential (hemorrhagic) thrombocythemia; E21.3 Hyperparathyroidism, unspecified; I87.2 Venous insufficiency (chronic) (peripheral); E86.0 Dehydration; M48.00 Spinal stenosis, site unspecified
CPT/HCPCS: 36415; 71045-TC-FY; 80048; 80053; 81003; 82607; 82746; 83735; 84100; 84439; 84443; 85025; 85027; 85610; 87040; 87086; 87186; 93005; 93010; 97116-GP; 97162-GP; 99285-25; C9803; G0378; J8999; U0003; U0005

== ENCOUNTER 2022-06-10 14:43 | Inpatient (IN) | payer OTHER, MEDICARE ==
[2022-06-10] MEDS ORDERED: ACETAMINOPHEN 1000 MG/100 ML BAG IVPB ONE (16:03)
[2022-06-10] MEDS ORDERED: CEFEPIME 2 GM in DEXTROSE 5%-WATER 100 ML IVPB ONE (17:00)
[2022-06-10] MEDS ORDERED: VANCOMYCIN 1 GM in D5W (PRE-DOCKED) 1,000 MG/250 ML IVPB ONE (17:00)
[2022-06-10] MEDS ORDERED: ACETAMINOPHEN INJECTION 100 ML IVPB ONE (18:00)
[2022-06-10] MEDS ORDERED: VANCOMYCIN 1,000 MG VIAL (RESTRICTED TO ID ONLY) ONE (18:00)
[2022-06-10] MEDS ORDERED: CEFEPIME HCL 2 GM VIAL (RESTRICTED TO ID) ONE (18:00)
[2022-06-10 18:08] LABS: INR 1.2 (0.83-1.09); PROTHROMBIN TIME (PATIENT) 13.8 SEC (9.7-13.0)
[2022-06-10 18:10] LABS: HEMATOCRIT 27.2 % (32.4-45.2); HEMOGLOBIN 9.6 G/dL (10.7-15.3); MCHC 35.4 g/dl (32.0-36.0); MEAN CELL VOLUME 119.8 fl (80-96); MEAN PLT VOLUME 7.3 fl (7.5-11.1); PLATELET COUNT 452.4 10^3/uL (134-434); RBC 2.27 10^6/uL (3.60-5.2); RDW 13.1 % (11.6-15.6); WHITE BLOOD COUNT 11.5 10^3/uL (4.0-10.8)
[2022-06-10 18:10] LABS: ACTIVATED PTT 25.8 SECONDS (25.2-36.5)
[2022-06-10 18:12] LABS: MCH 42.4 pg (25.7-33.7)
[2022-06-10 18:15] LABS: ALBUMIN 3.3 g/dl (3.4-5.0); BILIRUBIN,TOTAL 0.9 mg/dl (0.2-1); CALCIUM 9.9 mg/dl (8.5-10); CREATININE 0.7 mg/dl (0.55-1.3); MAGNESIUM 2.2 mg/dL (1.8-2.4); PHOSPHOROUS 2.7 mg/dl (2.5-4.9); TOT PROT 6.5 g/dl (6.4-8.2)
[2022-06-10 19:13] LABS: VENOUS BASE EXCESS -0.2 mmol/L (-2-2); VENOUS O2 SATURATION 57.2 % (70-80); VENOUS PCO2 41.3 mmHg (38-52); VENOUS PH 7.394 (7.310-7.410)
[2022-06-10 19:27] LABS: EPITHELIAL CELLS FEW /hpf
[2022-06-10 19:28] LABS: ANISOCYTOSIS 1+; MACROCYTOSIS 2+; PLATELET ESTIMATE SLT INCREASE
[2022-06-10] MEDS ORDERED: HEPARIN NA (PORCINE) 5,000 UNITS/ML 1ML VIAL IVPUSH PRN ×2 (20:58)
[2022-06-10] MEDS ORDERED: HEPARIN NA (PORCINE) 5,000 UNITS/ML 1ML VIAL ONE (21:29)
[2022-06-10] MEDS ORDERED: HEPARIN INFUSION - 25,000 UNITS/500 ML INFUS.BAG IVPB ONE (21:30)
[2022-06-10] MEDS: HEPARIN INFUSION - 25,000 UNITS/500 ML INFUS.BAG IVPB SCH (21:42)
[2022-06-11] MEDS: ACETAMINOPHEN 1000 MG/100 ML BAG IVPB PRN ×2 (00:24→13:56)
[2022-06-11 02:41] VITALS: BMI 26.4
[2022-06-11] MEDS: LEVOTHYROXINE NA 112 MCG TABLET (FP) PO SCH (06:56)
[2022-06-11 09:11] LABS: CALCIUM 9.9 mg/dl (8.5-10); CREATININE 0.8 mg/dl (0.55-1.3)
[2022-06-11] MEDS: HEPARIN INFUSION - 25,000 UNITS/500 ML INFUS.BAG IVPB SCH (21:07)
[2022-06-11] MEDS: DONEPEZIL HCL 5 MG TABLET (FP) PO SCH (21:11)
[2022-06-11] MEDS: MIRTAZAPINE 15 MG TABLET (FP) PO SCH (21:11)
[2022-06-12] MEDS: LEVOTHYROXINE NA 112 MCG TABLET (FP) PO SCH (06:18)
[2022-06-12 08:31] LABS: ALBUMIN 2.9 g/dl (3.4-5.0); BILIRUBIN,TOTAL 0.8 mg/dl (0.2-1); CALCIUM 9.7 mg/dl (8.5-10); CREATININE 0.6 mg/dl (0.55-1.3); TOT PROT 6.1 g/dl (6.4-8.2)
[2022-06-12] MEDS: ENOXAPARIN NA (PORCINE) 60 MG/0.6 ML DISP.SYRIN SQ SCH ×2 (09:08→21:06)
[2022-06-12] MEDS ORDERED: CYANOCOBALAMIN (VITAMIN B-12) 1000 MCG/1 ML VIAL IM SCH (10:00)
[2022-06-12 11:53] LABS: BASO % 0.8 % (0-2.0); HEMATOCRIT 28.1 % (32.4-45.2); HEMOGLOBIN 9.7 GM/dL (10.7-15.3); LYMPH % 11.4 % (8-40); MCHC 34.7 g/dl (32.0-36.0); MEAN CELL VOLUME 118.1 fl (80-96); MEAN PLT VOLUME 7.4 fl (7.5-11.1); MONO % 7.7 % (3.8-10.2); NEUT % 79.1 % (42.8-82.8); PLATELET COUNT 700 10^3/uL (134-434); RBC 2.38 M/mm3 (3.60-5.2); RDW 13.9 % (11.6-15.6); WHITE BLOOD COUNT 10.5 K/mm3 (4.0-10.0)
[2022-06-12 12:05] LABS: MCH 40.9 pg (25.7-33.7)
[2022-06-12] MEDS: DONEPEZIL HCL 5 MG TABLET (FP) PO SCH (21:06)
[2022-06-12] MEDS: MIRTAZAPINE 15 MG TABLET (FP) PO SCH (21:08)
[2022-06-13] MEDS: LEVOTHYROXINE NA 112 MCG TABLET (FP) PO SCH (07:28)
[2022-06-13] MEDS: ENOXAPARIN NA (PORCINE) 60 MG/0.6 ML DISP.SYRIN SQ SCH ×2 (10:24→20:50)
[2022-06-13] MEDS: MIRTAZAPINE 15 MG TABLET (FP) PO SCH (21:01)
[2022-06-13] MEDS: DONEPEZIL HCL 5 MG TABLET (FP) PO SCH (21:02)
[2022-06-14] MEDS: LEVOTHYROXINE NA 112 MCG TABLET (FP) PO SCH (06:17)
[2022-06-14 09:21] LABS: ALBUMIN 2.8 g/dl (3.4-5.0); BILIRUBIN,TOTAL 0.8 mg/dl (0.2-1); CALCIUM 10.1 mg/dl (8.5-10); CREATININE 0.6 mg/dl (0.55-1.3)
[2022-06-14] MEDS: ENOXAPARIN NA (PORCINE) 60 MG/0.6 ML DISP.SYRIN SQ SCH ×2 (09:26→21:19)
[2022-06-14 11:51] LABS: BASO % 0.9 % (0-2.0); EOS % 1.8 % (0-4.5); HEMATOCRIT 48.3 % (32.4-45.2); HEMOGLOBIN 15.9 GM/dL (10.7-15.3); LYMPH % 19.2 % (8-40); MCH 38.9 pg (25.7-33.7); MEAN CELL VOLUME 118.1 fl (80-96); MEAN PLT VOLUME 6.6 fl (7.5-11.1); MONO % 12.5 % (3.8-10.2); NEUT % 65.6 % (42.8-82.8); PLATELET COUNT 524 10^3/uL (134-434); RBC 4.09 M/mm3 (3.60-5.2); RDW 14.5 % (11.6-15.6); WHITE BLOOD COUNT 4.8 K/mm3 (4.0-10.0)
[2022-06-14] MEDS: HYDROXYUREA 500 MG CAPSULE PO SCH (12:22)
[2022-06-14 13:01] LABS: ANISOCYTOSIS 2+; MACROCYTOSIS 2+
[2022-06-14] MEDS: DONEPEZIL HCL 5 MG TABLET (FP) PO SCH (21:19)
[2022-06-14] MEDS: MIRTAZAPINE 15 MG TABLET (FP) PO SCH (21:19)
[2022-06-15] MEDS: LEVOTHYROXINE NA 112 MCG TABLET (FP) PO SCH (06:41)
[2022-06-15 08:45] LABS: ALBUMIN 2.8 g/dl (3.4-5.0); BILIRUBIN,TOTAL 0.8 mg/dl (0.2-1); CREATININE 0.6 mg/dl (0.55-1.3)
[2022-06-15] MEDS: HYDROXYUREA 500 MG CAPSULE PO SCH (09:20)
[2022-06-15] MEDS: ENOXAPARIN NA (PORCINE) 60 MG/0.6 ML DISP.SYRIN SQ SCH (09:20)
[2022-06-15] MEDS ORDERED: amLODIPine BESYLATE 2.5 MG TABLET (FP) PO SCH (10:00)
[2022-06-15 10:13] LABS: BASO % 0.9 % (0-2.0); EOS % 1.6 % (0-4.5); HEMATOCRIT 29.3 % (32.4-45.2); HEMOGLOBIN 9.8 GM/dL (10.7-15.3); LYMPH % 12.7 % (8-40); MCH 39.6 pg (25.7-33.7); MCHC 33.6 g/dl (32.0-36.0); MEAN CELL VOLUME 117.8 fl (80-96); MEAN PLT VOLUME 6.8 fl (7.5-11.1); MONO % 14.5 % (3.8-10.2); NEUT % 70.3 % (42.8-82.8); PLATELET COUNT 932 10^3/uL (134-434); RBC 2.49 M/mm3 (3.60-5.2); RDW 13.7 % (11.6-15.6); WHITE BLOOD COUNT 8.6 K/mm3 (4.0-10.0)
[2022-06-15 14:22] VITALS: BP 151/84; PULSE 104; RESP 1; TEMP 98.6
== END 2022-06-15 17:09 | disposition home or self-care (01) | DRG 175 ==
LOC: FER 14:43 → OBSVTOIN 18:46 → INTOOBSV 18:46 → FM/S 18:46
PROVIDERS: ADMIT Internal Medicine; ATTEND Internal Medicine
DX: I26.09 Other pulmonary embolism with acute cor pulmonale (principal); D47.1 Chronic myeloproliferative disease; I82.412 Acute embolism and thrombosis of left femoral vein; I82.432 Acute embolism and thrombosis of left popliteal vein; I82.442 Acute embolism and thrombosis of left tibial vein; I26.99 Other pulmonary embolism without acute cor pulmonale; I10 Essential (primary) hypertension; M81.0 Age-related osteoporosis without current pathological fracture; Z86.73 Personal history of transient ischemic attack (TIA), and cerebral infarction without residual deficits; F03.90 Unspecified dementia, unspecified severity, without behavioral disturbance, psychotic disturbance, mood disturbance, and anxiety; F32.A Depression, unspecified; E03.9 Hypothyroidism, unspecified; D47.3 Essential (hemorrhagic) thrombocythemia; D64.9 Anemia, unspecified; I73.9 Peripheral vascular disease, unspecified; F41.9 Anxiety disorder, unspecified; K59.00 Constipation, unspecified; I27.20 Pulmonary hypertension, unspecified; I11.0 Hypertensive heart disease with heart failure; I50.9 Heart failure, unspecified; I87.8 Other specified disorders of veins; E83.52 Hypercalcemia
CPT/HCPCS: 0241U-QW; 36415; 70450-TC; 71045-TC-FY; 71275-TC; 74177-TC; 80048; 80053; 81003; 81015; 82607; 82803; 83605; 83735; 84100; 84443; 84484; 85025; 85610; 85730; 86850; 86900; 86901; 87040; 87086; 93005; 93306-TC; 93971-TC; 97116-GP; 97162-GP; 99285-25; J1644; J8999; Q9967